=== PATIENT | female | born 1955 | race Caucasian/White ===

== ENCOUNTER → 2020-06-02 09:46 | Outpatient (BNVA) | payer MEDICARE, SELFPAY | PROVIDERS: PCP Internal Medicine; Visit Provider Hospitalist | DX: J44.1 Chronic obstructive pulmonary disease with (acute) exacerbation (principal) | CPT/HCPCS: 99212 ==

== ENCOUNTER 2020-06-29 10:23 | Outpatient (REF) | payer MEDICARE, SELFPAY ==
[2020-06-29 12:39] LABS: MANUAL DIFF FLAG NO
[2020-06-29 12:50] LABS: Basophils Percent Auto 0.3 % (0-2); Eosinophils Absolute Auto 0.2 X10*3/uL (0.0-0.4); Eosinophils Percent Auto 3.7 % (0-4); Hematocrit 36.5 % (37-47); Hemoglobin 11.1 g/dl (12.0-16.0); Imm Gran Abs Auto 0.01 X10*3/uL (0.00-0.03); Imm Gran Pct Auto 0.2 % (0.0-0.4); Lymphocytes Absolute Auto 2.3 X10*3/uL (1.2-4.9); Lymphocytes Percent Auto 38.4 % (20-40); Mean Corpuscular HGB Conc 30.4 g/dl (31.0-35.0); Mean Corpuscular Hemoglobin 26.6 pg (27.0-33.0); Mean Corpuscular Volume 87.5 fL (80-98); Mean Platelet Volume 10.3 fL (9.4-12.3); Monocytes Absolute Auto 0.5 X10*3/uL (0.1-1.2); Monocytes Percent Auto 7.6 % (2-11); Neutrophils Percent Auto 49.8 % (45-73); Platelet Count 318 X10*3/uL (160-400); Red Blood Count 4.17 X10*6/uL (4.20-5.50); Red Cell Distribution Width 13.9 % (11.0-16.0); White Blood Count 5.9 X10*3/uL (4.8-10.8)
[2020-06-29 13:14] LABS: SARS COV2 IgG Positive (Negative)
[2020-06-29 13:56] LABS: Erythrocyte Sedimentation Rate 29 MM/HR (0-20)
[2020-07-01 13:47] LABS: IgA 167 mg/dL (70-320); IgG 739 mg/dL (600-1540); IgM 61 mg/dL (50-300)
[2020-07-04 07:04] LABS: Immunoglobulin E 2884 kU/L (<OR=114)
== END 2020-06-29 10:24 | disposition home or self-care (01) ==
LOC: HO.LAB 10:23
PROVIDERS: PCP Internal Medicine; Visit Provider Hospitalist
DX: J41.8 Mixed simple and mucopurulent chronic bronchitis (principal); G47.33 Obstructive sleep apnea (adult) (pediatric); R91.1 Solitary pulmonary nodule; F17.210 Nicotine dependence, cigarettes, uncomplicated; Z20.828 Contact with and (suspected) exposure to other viral communicable diseases; Z99.89 Dependence on other enabling machines and devices
CPT/HCPCS: 36415; 82784; 82785; 85025; 85652; 86769; 99212

== ENCOUNTER → 2020-08-03 10:28 | Outpatient (BNVA) | payer MEDICARE, SELFPAY | PROVIDERS: PCP Internal Medicine; Visit Provider Hospitalist | DX: J41.8 Mixed simple and mucopurulent chronic bronchitis (principal); J44.1 Chronic obstructive pulmonary disease with (acute) exacerbation; G47.33 Obstructive sleep apnea (adult) (pediatric); Z99.89 Dependence on other enabling machines and devices | CPT/HCPCS: 96372; 99212 ==

== ENCOUNTER → 2020-10-26 09:59 | Outpatient (BNVA) | payer MEDICARE, SELFPAY | PROVIDERS: PCP Internal Medicine; Visit Provider Hospitalist | DX: J44.1 Chronic obstructive pulmonary disease with (acute) exacerbation (principal); J41.8 Mixed simple and mucopurulent chronic bronchitis | CPT/HCPCS: 96372; 99212; J2930 ==

== ENCOUNTER → 2021-07-09 08:56 | Outpatient (BNVA) | payer MEDICARE, SELFPAY | PROVIDERS: PCP Internal Medicine; Visit Provider Hospitalist | DX: J45.51 Severe persistent asthma with (acute) exacerbation (principal); J44.9 Chronic obstructive pulmonary disease, unspecified; F17.210 Nicotine dependence, cigarettes, uncomplicated; H40.9 Unspecified glaucoma | CPT/HCPCS: 96372; 99212; J2930 ==

== ENCOUNTER → 2021-10-03 09:38 | Outpatient (BNVA) | payer MEDICARE, SELFPAY | PROVIDERS: PCP Internal Medicine; Visit Provider Hospitalist | DX: J45.51 Severe persistent asthma with (acute) exacerbation (principal); J44.9 Chronic obstructive pulmonary disease, unspecified; F17.200 Nicotine dependence, unspecified, uncomplicated; H40.9 Unspecified glaucoma; Z79.899 Other long term (current) drug therapy | CPT/HCPCS: 96372; 99212; J2930 ==

== ENCOUNTER 2021-11-12 13:17 | Outpatient (REF) | payer MEDICARE, SELFPAY | END 2021-11-12 13:18 | disposition home or self-care (01) | LOC: HO.LAB 13:17 | PROVIDERS: Visit Provider Hospitalist | DX: Z13.89 Encounter for screening for other disorder (principal) ==

== ENCOUNTER 2021-11-14 09:27 | Outpatient (REF) | payer MEDICARE, SELFPAY ==
[2021-11-14 09:59] LABS: MANUAL DIFF FLAG NO
[2021-11-14 10:26] LABS: Basophils Percent Auto 0.4 % (0-2); Eosinophils Absolute Auto 0.2 X10*3/uL (0.0-0.4); Eosinophils Percent Auto 3.2 % (0-4); Hematocrit 35.4 % (37.0-47.0); Imm Gran Abs Auto 0.01 X10*3/uL (0.00-0.03); Imm Gran Pct Auto 0.2 % (0.0-0.4); Lymphocytes Absolute Auto 1.5 X10*3/uL (1.2-4.9); Lymphocytes Percent Auto 32.4 % (20-40); Mean Corpuscular HGB Conc 31.1 g/dl (31.0-35.0); Mean Corpuscular Hemoglobin 27.6 pg (27.0-33.0); Mean Corpuscular Volume 88.7 fL (80.0-98.0); Mean Platelet Volume 10.7 fL (9.4-12.3); Monocytes Absolute Auto 0.4 X10*3/uL (0.1-1.2); Neutrophils Absolute Auto 2.7 x10*3/uL (2.0-8.3); Neutrophils Percent Auto 55.8 % (45-73); Platelet Count 210 X10*3/uL (160-400); Red Blood Count 3.99 X10*6/uL (4.20-5.50); Red Cell Distribution Width 14.2 % (11.0-16.0); White Blood Count 4.8 X10*3/uL (4.8-10.8)
[2021-11-14 12:04] LABS: Erythrocyte Sedimentation Rate 15 MM/HR (0-20)
[2021-11-16 18:07] LABS: Immunoglobulin G Subclass 1 492 mg/dL (382-929); Immunoglobulin G Subclass 2 157 mg/dL (241-700); Immunoglobulin G Subclass 3 98 mg/dL (22-178); Immunoglobulin G Subclass 4 2.8 mg/dL (4-86); Immunoglobulin G Total 779 mg/dL (600-1540)
[2021-11-17 14:42] LABS: IgA 146 mg/dL (70-320); IgG 780 mg/dL (600-1540); IgM 69 mg/dL (50-300)
== END 2021-11-14 09:28 | disposition home or self-care (01) ==
LOC: HO.LAB 09:27
PROVIDERS: PCP Internal Medicine; Visit Provider Hospitalist
DX: J45.909 Unspecified asthma, uncomplicated (principal); Z91.09 Other allergy status, other than to drugs and biological substances
CPT/HCPCS: 36415; 82784; 82785; 85025; 85652; 86003

== ENCOUNTER → 2021-11-20 10:19 | Outpatient (BNVA) | payer MEDICARE, SELFPAY | PROVIDERS: PCP Internal Medicine; Visit Provider Hospitalist | DX: J45.51 Severe persistent asthma with (acute) exacerbation (principal); H40.9 Unspecified glaucoma; F17.210 Nicotine dependence, cigarettes, uncomplicated | CPT/HCPCS: 99212 ==

== ENCOUNTER → 2022-09-05 14:20 | Outpatient (BNVA) | payer MEDICARE, SELFPAY | PROVIDERS: PCP Internal Medicine; Visit Provider Hospitalist | DX: J45.50 Severe persistent asthma, uncomplicated (principal); J44.9 Chronic obstructive pulmonary disease, unspecified; R91.8 Other nonspecific abnormal finding of lung field; H40.9 Unspecified glaucoma; F17.210 Nicotine dependence, cigarettes, uncomplicated; Z79.899 Other long term (current) drug therapy | CPT/HCPCS: 99212 ==

== ENCOUNTER 2022-10-23 10:49 | Outpatient (REF) | payer MEDICARE, SELFPAY ==
--- NOTE | ~2022-10-23 | XR_ITS ---
EXAMINATION: XR CHEST CLINICAL INFORMATION: Chronic obstructive pulmonary disease COMPARISON: None available. TECHNIQUE: 2 views of the chest were obtained. FINDINGS: A left-sided single lead AICD/pacemaker is in place with the intact-appearing lead terminating in the expected location of the right ventricle. Upper limits of normal cardiac size versus mild cardiomegaly. Mediastinal silhouette is otherwise unremarkable. The lungs are mildly hyperinflated. No focal consolidation, changes of congestion, pleural effusions or pneumothorax are seen. Note is made of absence of lateral end of the right clavicle which could be postsurgical or posttraumatic, recommend clinical correlation. Left AC joint arthropathy changes are seen. Multilevel degenerative changes in the visualized spine. The visualized upper abdomen is unremarkable. XR/XR chest 2V IMPRESSION: Mildly hyperinflated lungs. No acute pulmonary process.
[2022-10-23 11:43] LABS: MANUAL DIFF FLAG NO
[2022-10-23 11:51] LABS: Venous Blood Gas Refer to POC result
[2022-10-23 11:52] LABS: VBG pH 7.35 (7.32-7.43)
[2022-10-23 11:53] LABS: VBG Base Excess 1.5 mmol/L; VBG HCO3 27 mmol/L (22-26); VBG pCO2 49 mmHg; VBG pO2 35 mmHg
[2022-10-23 12:23] LABS: Basophils Percent Auto 0.3 % (0-2); Eosinophils Absolute Auto 0.2 X10*3/uL (0.0-0.4); Hematocrit 42.9 % (37.0-47.0); Hemoglobin 13.9 g/dl (12.0-16.0); Imm Gran Abs Auto 0.05 X10*3/uL (0.00-0.03); Imm Gran Pct Auto 0.4 % (0.0-0.4); Lymphocytes Absolute Auto 3.5 X10*3/uL (1.2-4.9); Lymphocytes Percent Auto 31.1 % (20-40); Mean Corpuscular HGB Conc 32.4 g/dl (31.0-35.0); Mean Corpuscular Hemoglobin 30.6 pg (27.0-33.0); Mean Corpuscular Volume 94.5 fL (80.0-98.0); Mean Platelet Volume 10.7 fL (9.4-12.3); Monocytes Absolute Auto 0.8 X10*3/uL (0.1-1.2); Monocytes Percent Auto 6.7 % (2-11); Neutrophils Absolute Auto 6.7 x10*3/uL (2.0-8.3); Neutrophils Percent Auto 59.5 % (45-73); Platelet Count 221 X10*3/uL (160-400); Red Blood Count 4.54 X10*6/uL (4.20-5.50); Red Cell Distribution Width 13.4 % (11.0-16.0); White Blood Count 11.3 X10*3/uL (4.8-10.8)
[2022-10-23 12:40] LABS: Anion Gap 13 (12-20); Blood Urea Nitrogen 11 mg/dL (9-16); Calcium 9.4 mg/dL (8.4-10.2); Carbon Dioxide 28 mmol/L (22-29); Chloride 105 mmol/L (96-108); Estimated Glomerular Filt Rate 55; Glucose Random 109 mg/dL (60-115); Potassium 5.1 mmol/L (3.3-5.1); Sodium 141 mmol/L (135-145)
[2022-10-23 13:05] LABS: Erythrocyte Sedimentation Rate 5 MM/HR (0-20)
[2022-10-25 18:54] LABS: Immunoglobulin E 2526 kU/L (<OR=114)
== END 2022-10-23 10:50 | disposition home or self-care (01) ==
LOC: HO.LAB 10:49
PROVIDERS: PCP Internal Medicine; Visit Provider Hospitalist
DX: J44.1 Chronic obstructive pulmonary disease with (acute) exacerbation (principal); H40.9 Unspecified glaucoma; F17.200 Nicotine dependence, unspecified, uncomplicated
CPT/HCPCS: 36415; 71046; 80048; 82785; 82803; 85025; 85652; 94640; 96372; 99212; J2930

== ENCOUNTER 2023-02-11 10:00 | Outpatient (AMB) | payer MEDICARE, SELFPAY ==
--- NOTE | 2023-02-11 10:04 | A.OFFVIS_ITS ---
Intake Vital Signs 02/11/23 10:05 Height 5 ft 1 in Weight 200 lb BMI 37.8 BP 110/70 Blood Pressure Location Lt brachial Position Standing Pulse 87 Pulse Source Pulse Oximeter Pulse Oximetry (%) 97 Oxygen Delivery Method Room Air Intake Visit Reasons: asthma Intake Note: pt is here for follow up and states she is feeling good. Allergies ciprofloxacin Allergy (Severe, Verified 02/11/23 10:09) rash HPI HPI Comments History of Present Illness Details The patient is a 68-year-old woman known severe asthma, tobacco dependency and pulmonary nodules. She continues to smoke cigarettes. She is not ready to quit. She continues on the Symbicort and Spiriva. Recently she was admitted to [facility] with the kidney stones and also a complicated urinary tract infection. She has been taking 2 antibiotics. She has also been taking analgesics for the significant pain. She did have a stent placed. Now she needs additional therapies for larger stone removal. Patient needs pulmonary clearance. Overall her respiratory status is improved. She has been using her inhalers regularly. She has not had any pulmonary function studies recently. At this point due to her pain and discomfort would be a good time to do them. She is walking without any significant shortness of breath which is reassuring. We did review her chest x-ray from [facility] done 06/03/2019 demonstrating a question opacity in the right imelda thorax. She did have a CT scan of the chest back in October 2018 demonstrating stable pulmonary nodules.Apparently after had seen and she developed worsening neck discomfort and she called 911. She was found to have an at heart attack, she was admitted to [facility]. She underwent a PCI with stent placed to the LAD. However, after that she had worsening respiratory symptoms. Significant wheezing. Not in any improvement with her respiratory medicines at home. She went to cardiac rehab this morning even though she was short of breath. She was told that it may be from the metoprolol. 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 10/03/2021 the patient is here for a pulmonary follow-up visit. Her respi ratory status has significantly gotten worse. During the last visit she explained that she was diagnosed with glaucoma and went to take her off her anticholinergic in respiratory therapy. However, she did get a clarification that was not glaucoma and was cataracts. Therefore she can go back on anticholinergic therapy. She does have increased wheezing and she feels that not being on that medication made her symptoms worse. The patient was denied on Dupixent and therefore will continue her on prednisone for now. The patient does have significant wheezing today and she will receive a dose of Solu-Medrol. She denies any sick contacts. In view of her asthma phenotype will go ahead and do blood work to assess her eosinophils and her IgE levels as well as her allergies. I am hopeful that she can start biologic therapies in order to decrease her steroid needs. 11/20/2021 the patient is here for pulmonary follow-up visit. She is doing a lot better now on Trelegy. The inhaler therapy has been affecting beneficial. She has not required prednisone since the last time. She continues to have shortness of breath with activity. Moderate severity. Does get very winded at times. She also has significant allergies. She takes Benadryl every night. We did do blood work including allergy testing and she has significant allergies to molds and a significantly elevated IgE level will refer to the ostium. The patient does have an asthma phenotype and she will benefit from biologic therapy based on her frequent does of prednisone on maximum therapy. She will be a good candidate for Xolair. However, the patient is resistant on starting a biologic therapies at this time. She is going to continue on current therapy. We also talked about her smoking. She understands smoking slowly making it worse. She is not interested in using any alternative medications at this time. But she will consider cutting down at this time. 09/05/2022 the patient is here for a pulmonary follow-up visit. She has had a hard time with her breathing. She can no longer use the Trelegy because of the cost. Her primary care doctor did prescribe Symbicort. Although still very expensive for her. She has her nebulizer therapy both the DuoNeb and the budesonide. If she does use the 4 times a day at least a DuoNeb in twice a day the budesonide she does need to take any other inhalers except for rescue inhaler. the patient had a hard time with her breathing. She had called the office because she thought she would need prednisone. We did send prednisone she did initially okay but then she got worse again. She does she needed Solu- Medrol. However, she did in 1 go to the ER. We did not have any availability so she could not get shot in the office. She has been off the azithromycin. She takes that 3 times a week. The major issues she still smoking. Change oil smoking she is not ready to quit. Although she knows that she continues smoking she is going to continue getting worse. I am going to go ahead and send the Nicotrol inhaler to the pharmacy. She is going to start that up to see if this could help her decrease and hopefully stop her smoking habit. We did talk about the lung cancer screening program. The patient is not interested at this time. We also talked about biologic therapy. The patient has not been on Xolair. She did not want start. 10/23/2022 the patient is here for sick visit. She has had a hard time breathing off for couple months. Every time she goes on prednisone she does feel better but then when she weans off she always gets worse again. Unfortunately she continues to smoke cigarettes. Also fortunately she is reluctant to go to the ER at any point. She continues to work regularly. She had just completed a course of prednisone. Currently she is having labored breathing with significant audible wheezing. She did a treatment this morning. Though with her significant chest tightness and wheezing I did give her 2 DuoNeb treatments. Also Solu-Medrol 125 mg x 1. The patient is agreeable to staying on a small dose of prednisone at this time based on the fact that she has symptoms when she comes off. She also understands that she needs to quit smoking. I will have her get blood work including a venous gas and also a chest x-ray today prior to discharge. She is going to continue with current respira tory regimen and will be working on cutting down on the smoking. 02/11/2023 the patient is here for a pulmonary follow-up visit. The patient overall showing a little better. She continues to need a prednisone regularly. Although she is not taking it daily only as needed. Explained to her with her ongoing symptoms she is better off taking it once a day at least and then increasing it as needed. The patient does continue to smoke cigarettes. She has not ready to quit right now although she knows that is hurting her. She is looking for a job. She states that if she does get her job then she will work on quitting smoking. If she does decide to quit smoking she can go ahead and start Chantix. We did talk about the risks and side effects of the medication. She is aware of the depression and she would have to engage with family members to make sure that there where so they can monitor her closely. I do believe Chantix would be a good option for the patient. She continues use her respiratory therapy. She responded well to the azithromycin. She did have a chest x-ray back in September demonstrating no acute disease she has hyperinflation of the lungs. I did again recommend the lung cancer screening program but the patient rather not undergo any testing specially since she is not going to have anything done about it. [facility] Medical History (Updated 10/03/21 @ 09:58 by Willian Stern MD) Asthma Asthma Asthma-COPD overlap syndrome COPD (chronic obstructive pulmonary disease) COPD (chronic obstructive pulmonary disease) Glaucoma Mixed simple and mucopurulent chronic bronchitis BLAKE on CPAP Tobacco dependence Family History (Updated 08/03/20 @ 23:54 by Willian Stern MD) Other Asthma Social History Patient Tobacco Use Status: Current everyday Tobacco user Tobacco use type: Cigarette Cigarette Packs Per Day: 1 Cigarettes Per Day: 3 Years Smoked: 50 years Review of Systems Const Denies night sweats ENT Denies change in voice, Denies lip swelling, Denies mouth pain, Reports nasal congestion, Reports nasal discharge and Denies tongue swelling Card Denies chest pain and Reports dyspnea on exertion Resp Reports chest congestion, Reports cough, Reports dyspnea on exertion and Reports wheezing GI Denies abdominal pain Musc Denies no additional complaints Neuro Denies Neuro-related abnormal movements Psych Denies no additional complaints Good/Lymph Denies easy bleeding and Denies lymphadenopathy Aller/Immun Denies lip swelling, Denies tongue swelling and Reports wheezing Physical Exam Vital Signs: Last Vital Signs Pulse 87 02/11/23 10:05 BP 110/70 02/11/23 10:05 Pulse Ox 97 02/11/23 10:05 Oxygen Delivery Method Room Air 02/11/23 10:05 BMI result Body Mass Index 37.8 Const General: alert and acute distress mild HEENT General nose exam: Abnormal external nose present and Nasal discharge present Eyes Pupils: Equal, round and reactive pupils present Neck Neck: Yes normal visual inspection, Yes full ROM and Yes no lymphadenopathy Chest Chest palpation & inspection: normal inspection of the chest Resp Effort & Inspection: Actively coughing and prolonged expiratory phase Auscultation: rhonchi, wheezes scattered wheezes and diminished lung sounds Cardio Rate: regular rate Rhythm: regular rhythm Heart sounds: S1 normal heart sound present and S2 normal heart sound present GI Palpation (GI): Soft to palpation and nontender Auscultation: normal bowel sounds General: Yes no CVA tenderness Back/Spine/Pelvis Back: no CVA tenderness Skin General skin exam: rashes and/or lesions noted Neuro Cranial nerves: Yes Equal, round and reactive pupils present Assessment & Plan Assessment & Plan (1) COPD (chronic obstructive pulmonary disease): Code(s): J44.9 - Chronic obstructive pulmonary disease, unspecified Qualifiers: COPD type: COPD with acute exacerbation Qualified Code(s): J44.1 - Chronic obstructive pulmonary disease with (acute) exacerbation (2) Asthma-COPD overlap syndrome: Code(s): J44.9 - Chronic obstructive pulmonary disease, unspecified (3) Tobacco dependence: Code(s): F17.200 - Nicotine dependence, unspecified, uncomplicated (4) Glaucoma: Code(s): H40.9 - Unspecified glaucoma Plan continue Azithromycin 500mg MWF prednisone taper, then stay on 10mg daily continue budesonide twice a day Duoneb QID (monitor for mental status changes) Continue oxygen supplementation with activity and sleep consider Chantix, rx givent on paper Consider LDCT screening reflux diet/PPI Follow-up in 2-3 months Medications: New varenicline (Chantix Starting Month Box) PO PER PKG DIR 42 ea 0RF prednisone 30 mg (3 x 10 mg) PO DAILY 30 days 90 tabs 1RF varenicline (Chantix Starting Month Box) PO PER PKG DIR 42 ea 0RF Coding Level of Care Code Est Pt Level 4 (00713) Diagnoses COPD (chronic obstructive pulmonary disease) J44.1 COPD type: COPD with acute exacerbation Asthma-COPD overlap syndrome J44.9 Tobacco dependence F17.200 Glaucoma H40.9 Time Spent (min) 19
[2023-02-11 10:05] VITALS: BP 110/70; PULSE 87; O2SAT 97; BMI 37.8
== END 2023-02-11 10:39 | disposition home or self-care (01) ==
PROVIDERS: PCP Internal Medicine; Visit Provider Hospitalist
DX: J44.1 Chronic obstructive pulmonary disease with (acute) exacerbation (principal); J44.9 Chronic obstructive pulmonary disease, unspecified; F17.200 Nicotine dependence, unspecified, uncomplicated; H40.9 Unspecified glaucoma
CPT/HCPCS: 99214

== ENCOUNTER → 2023-02-11 10:00 | Outpatient (BNVA) | payer MEDICARE, SELFPAY | PROVIDERS: PCP Internal Medicine; Visit Provider Hospitalist | DX: J44.1 Chronic obstructive pulmonary disease with (acute) exacerbation (principal); H40.9 Unspecified glaucoma; F17.210 Nicotine dependence, cigarettes, uncomplicated | CPT/HCPCS: 99212 ==

== ENCOUNTER 2023-09-12 09:19 | Outpatient (AMB) | payer MEDICARE, SELFPAY ==
[2023-09-12 09:25] VITALS: BP 120/70; PULSE 109; O2SAT 96; BMI 40.2
--- NOTE | 2023-09-12 09:25 | A.OFFVIS_ITS ---
Intake Vital Signs 09/12/23 09:25 Height 5 ft 1 in Weight 212 lb 11.937 oz BMI 40.2 BP 120/70 Blood Pressure Location Lt brachial Position Sitting Pulse 109 H Pulse Source Pulse Oximeter Pulse Oximetry (%) 96 Oxygen Delivery Method Room Air Intake Visit Reasons: Asthma Intake Note: pt is here for follow up and states she is doing okay at her baseline. Mortar Carrier Required: No Allergies ciprofloxacin Allergy (Severe, Verified 09/12/23 09:28) rash HPI HPI Comments History of Present Illness Details The patient is a 68-year-old woman known severe asthma, tobacco dependency and pulmonary nodules. She continues to smoke cigarettes. She is not ready to quit. She continues on the Symbicort and Spiriva. Recently she was admitted to [facility] with the kidney stones and also a complicated urinary tract infection. She has been taking 2 antibiotics. She has also been taking analgesics for the significant pain. She did have a stent placed. Now she needs additional therapies for larger stone removal. Patient needs pulmonary clearance. Overall her respiratory status is improved. She has been using her inhalers regularly. She has not had any pulmonary function studies recently. At this point due to her pain and discomfort would be a good time to do them. She is walking without any significant shortness of breath which is reassuring. We did review her chest x-ray from [facility] done 06/03/2019 demonstrating a question opacity in the right imelda thorax. She did have a CT scan of the chest back in October 2018 demonstrating stable pulmonary nodules.Apparently after had seen and she developed worsening neck discomfort and she called 911. She was found to have an at heart attack, she was admitted to [facility]. She underwent a PCI with stent placed to the LAD. However, after that she had worsening respiratory symptoms. Significant wheezing. Not in any improvement with her respiratory medicines at home. She went to cardiac rehab this morning even though she was short of breath. She was told that it may be from the metoprolol. She is going to call her extension course coordinator to see if we can come off it or decrease the dose. 10/03/2021 the patient is here for a pulmonary follow-up visit. Her respiratory status has significantly gotten worse. During the last visit she explained that she was diagnosed with glaucoma and went to take her off her anticholinergic in respiratory therapy. However, she did get a clarification that was not glaucoma and was cataracts. Therefore she can go back on anticholinergic therapy. She does have increased wheezing and she feels that not being on that medication made her symptoms worse. The patient was denied on Dupixent and therefore will continue her on prednisone for now. The patient does have significant wheezing today and she will receive a dose of Solu-Medrol. She denies any sick contacts. In view of her asthma phenotype will go ahead and do blood work to assess her eosinophils and her IgE levels as well as her allergies. I am hopeful that she can start biologic therapies in order to decrease her steroid needs. 11/20/2021 the patient is here for pulmonary follow-up visit. She is doing a lot better now on Trelegy. The inhaler therapy has been affecting beneficial. She has not required prednisone since the last time. She continues to have shortness of breath with activity. Moderate severity. Does get very winded at times. She also has significant allergies. She takes Benadryl every night. We did do blood work including allergy testing and she has significant allergies to molds and a significantly elevated IgE level will refer to the ostium. The patient does have an asthma phenotype and she will benefit from biologic therapy based on her frequent does of prednisone on maximum therapy. She will be a good candidate for Xolair. However, the patient is resistant on starting a biologic therapies at this time. She is going to continue on current therapy. We also talked about her smoking. She understands smoking slowly making it worse. She is not interested in using any alternative medications at this time. But she will consider cutting down at this time. 09/05/2022 the patient is here for a pulmonary follow-up visit. She has had a hard time with her breathing. She can no longer use the Trelegy because of the cost. Her primary care doctor did prescribe Symbicort. Although still very expensive for her. She has her nebulizer therapy both the DuoNeb and the budesonide. If she does use the 4 times a day at least a DuoNeb in twice a day the budesonide she does need to take any other inhalers except for rescue inhaler. the patient had a hard time with her breathing. She had called the office because she thought she would need prednisone. We did send prednisone she did initially okay but then she got worse again. She does she needed Solu- Medrol. However, she did in 1 go to the ER. We did not have any availability so she could not get shot in the office. She has been off the azithromycin. She takes that 3 times a week. The major issues she still smoking. Change oil smoking she is not ready to quit. Although she knows that she continues smoking she is going to continue getting worse. I am going to go ahead and send the Nicotrol inhaler to the pharmacy. She is going to start that up to see if this could help her decrease and hopefully stop her smoking habit. We did talk about the lung cancer screening program. The patient is not interested at this time. We also talked about biologic therapy. The patient has not been on Xolair. She did not want start. 10/23/2022 the patient is here for sick visit. She has had a hard time breathing off for couple months. Every time she goes on prednisone she does feel better but then when she weans off she always gets worse again. Unfortunately she continues to smoke cigarettes. Also fortunately she is reluctant to go to the ER at any point. She continues to work regularly. She had just completed a course of prednisone. Currently she is having labored breathing with significant audible wheezing. She did a treatment this morning. Though with her significant chest tightness and wheezing I did give her 2 DuoNeb treatments. Also Solu-Medrol 125 mg x 1. The patient is agreeable to staying on a small dose of prednisone at this time based on the fact that she has symptoms when she comes off. She also understands that she needs to quit smoking. I will have her get blood work including a venous gas and also a chest x-ray today prior to discharge. She is going to continue with current respiratory regimen and will be working on cutting down on the smoking. 02/11/2023 the patient is here for a pulmonary follow-up visit. The patient overall showing a little better. She continues to need a prednisone regularly. Although she is not taking it daily only as needed. Explained to her with her ongoing symptoms she is better off taking it once a day at least and then increasing it as needed. The patient does continue to smoke cigarettes. She has not ready to quit right now although she knows that is hurting her. She is looking for a job. She states that if she does get her job then she will work on quitting smoking. If she does decide to quit smoking she can go ahead and start Chantix. We did talk about the risks and side effects of the medication. She is aware of the depression and she would have to engage with family members to make sure that there where so they can monitor her closely. I do believe Chantix would be a good option for the patient. She continues use her respiratory therapy. She responded well to the azithromycin. She did have a chest x-ray back in September demonstrating no acute disease she has hyperinflation of the lungs. I did again recommend the lung cancer screening program but the patient rather not undergo any testing specially since she is not going to have anything done about it. 09/12/2023 the patient is here for sick visit. She has had worsening respiratory symptoms. Significant wheezing and chest congestion. Moderate to severe. Her respiratory therapy helps just for a short period of time. She did have some prednisone at home she did take it. Although she still having hard time. The patient did not want to go to the ER. She has a hard time even speaking in full sentences. The patient has been using her oxygen with good effect. We did document significant wheezing and prolonged expiratory phase. She did receive Solu-Medrol and will continue on the prednisone taper. Will go ahead and treat her with Augmentin for lower respiratory infection. If the patient is not responding she knows to come back for chest x-ray. Otherwise she is going to continue with aggressive respiratory therapy. If the patient is no better she will call the office for an earlier assessment. [facility] Medical History (Updated 10/03/21 @ 09:58 by Willian Stern MD) Asthma Glaucoma Tobacco dependence Asthma Asthma-COPD overlap syndrome BLAKE on CPAP COPD (chronic obstructive pulmonary disease) COPD (chronic obstructive pulmonary disease) Mixed simple and mucopurulent chronic bronchitis Family History (Updated 08/03/20 @ 23:54 by Willian Stern MD) Other Asthma Social History Patient Tobacco Use Status: Current everyday Tobacco user Tobacco use type: Cigarette Cigarette Packs Per Day: 1 Cigarettes Per Day: 3 Years Smoked: 50 years Review of Systems Const Denies night sweats ENT Denies change in voice, Denies lip swelling, Denies mouth pain, Reports nasal congestion, Reports nasal discharge and Denies tongue swelling Card Denies chest pain and Reports dyspnea on exertion Resp Reports chest congestion, Reports cough, Reports dyspnea on exertion and Reports wheezing GI Denies abdominal pain Musc Denies no additional complaints Neuro Denies Neuro-related abnormal movements Psych Denies no additional complaints Good/Lymph Denies easy bleeding and Denies lymphadenopathy Aller/Immun Denies lip swelling, Denies tongue swelling and Reports wheezing Physical Exam Vital Signs: Last Vital Signs Pulse 109 H 09/12/23 09:25 BP 120/70 09/12/23 09:25 Pulse Ox 96 09/12/23 09:25 Oxygen Delivery Method Room Air 09/12/23 09:25 BMI result Body Mass Index 40.2 Const General: alert and acute distress mild HEENT General nose exam: Abnormal external nose present and Nasal discharge present Eyes Pupils: Equal, round and reactive pupils present Neck Neck: Yes normal visual inspection, Yes full ROM and Yes no lymphadenopathy Chest Chest palpation & inspection: normal inspection of the chest Resp Effort & Inspection: Actively coughing and prolonged expiratory phase Auscultation: rhonchi, wheezes scattered wheezes and diminished lung sounds Cardio Rate: regular rate Rhythm: regular rhythm Heart sounds: S1 normal heart sound present and S2 normal heart sound present GI Palpation (GI): Soft to palpation and nontender Auscultation: normal bowel sounds General: Yes no CVA tenderness Back/Spine/Pelvis Back: no CVA tenderness Skin General skin exam: rashes and/or lesions noted Neuro Cranial nerves: Yes Equal, round and reactive pupils present Office Meds methylprednisolone sod suc(PF) 125 mg/2 mL solution for injection Performing Provider: Willian Stern MD Performing Location: [facility] Pulmonology [facility] Administered by: Arcelia Tubbs LPN on 09/12/23 10:00 Dose Route Admin Location Dispensed Lot Number Expiration Date NDC Accounts Manager 125 mg IM left buttock 2 mL [id number] 07/27/25 9974-2917-08 [employer] Assessment & Plan Assessment & Plan (1) COPD (chronic obstructive pulmonary disease): Code(s): J44.9 - Chronic obstructive pulmonary disease, unspecified Qualifiers: COPD type: COPD with acute exacerbation Qualified Code(s): J44.1 - Chronic obstructive pulmonary disease with (acute) exacerbation (2) Asthma-COPD overlap syndrome: Code(s): J44.9 - Chronic obstructive pulmonary disease, unspecified (3) Tobacco dependence: Code(s): F17.200 - Nicotine dependence, unspecified, uncomplicated (4) Glaucoma: Code(s): H40.9 - Unspecified glaucoma Plan Solumedrol today Prednisone taper start Augmentin continue Azithromycin 500mg MWF prednisone taper, then stay on 10mg daily continue budesonide twice a day Duoneb QID (monitor for mental status changes) Continue oxygen supplementation with activity and sleep consider Chantix, rx givent on paper Consider LDCT screening reflux diet/PPI Follow-up in 2-3 months Orders: Orders AMB Methylprednisolone Injection 09/12/23 J44.9 - Chronic obstructive pulmonary disease, unspecified Medications: New amoxicillin-pot clavulanate 875-125 mg 1 tab PO BID 10 days 20 tabs 0RF Changed From albuterol sulfate 90 mcg/actuation 2 puffs PO Q6H PRN 34 grams 2RF for wheezing To albuterol sulfate 90 mcg/actuation 2 puffs PO Q6H 90 days PRN 34 grams 3RF for wheezing From fluticasone propionate 50 mcg/actuation (Allergy Relief (fluticasone)) administer into each nostril 1 spray intranasal DAILY To fluticasone propionate 50 mcg/actuation (Allergy Relief (fluticasone)) administer into each nostril 1 spray intranasal DAILY 90 days 3 ea 3RF Refilled azithromycin Friday, Friday, Friday 500 mg PO 3XW 90 days 39 tabs 3RF J41.8 - Mixed simple and mucopurulent chronic bronchitis prednisone 30 mg (3 x 10 mg) PO DAILY 30 days 90 tabs 3RF ipratropium-albuterol 0.5 mg-3 mg(2.5 mg base)/3 mL 3 mL inhalation QID 1,260 mL 3RF J44.9 - Chronic obstructive pulmonary disease, unspecified Coding Level of Care Code Est Pt Level 4 (97855) Diagnoses Chronic obstructive pulmonary disease with acute exacerbation J44.1 COPD type: COPD with acute exacerbation Asthma-COPD overlap syndrome J44.9 Tobacco dependence F17.200 Glaucoma H40.9 Time Spent (min) 18
== END 2023-09-12 09:56 | disposition home or self-care (01) ==
PROVIDERS: PCP Internal Medicine; Visit Provider Hospitalist
DX: J44.1 Chronic obstructive pulmonary disease with (acute) exacerbation (principal); J44.9 Chronic obstructive pulmonary disease, unspecified; F17.200 Nicotine dependence, unspecified, uncomplicated; H40.9 Unspecified glaucoma
CPT/HCPCS: 99214

== ENCOUNTER → 2023-09-12 09:19 | Outpatient (BNVA) | payer MEDICARE, SELFPAY | PROVIDERS: PCP Internal Medicine; Visit Provider Hospitalist | DX: J44.1 Chronic obstructive pulmonary disease with (acute) exacerbation (principal); H40.9 Unspecified glaucoma; F17.210 Nicotine dependence, cigarettes, uncomplicated | CPT/HCPCS: 96372; 99212; J2930 ==

== ENCOUNTER 2024-01-01 12:52 | Inpatient (IN) | payer MEDICARE, SELFPAY ==
[2024-01-01] VITALS (14 sets, daily range): BP systolic 105–142; BP diastolic 60–82; PULSE 95–106; RESP 14–35; TEMP 36.9–37.6; O2SAT 91–99; BMI 41.7; BMI 41.0
--- NOTE | ~2024-01-01 | XR_ITS ---
EXAMINATION: XR CHEST CLINICAL INFORMATION: Dyspnea COMPARISON: Chest 10/23/2022 TECHNIQUE: AP upright portable view of the chest was obtained. FINDINGS: A left-sided single-lead AICD/pacemaker is in place with the intact-appearing lead terminating in the expected location of the right ventricle. Heart size remains upper limits of normal to mildly enlarged. The lungs are mildly hyperinflated. There is slight patchy opacity at the left lung base consistent with atelectasis and/or pneumonia. Coarsening of the interstitial markings is again noted. No pleural effusion or pneumothorax. Again noted is absence of the lateral aspect of the right clavicle which is could be postsurgical or posttraumatic. There is mild degenerative change of the left AC joint. The upper abdomen is unremarkable. XR/XR chest 1V IMPRESSION: 1. Left lower lobe atelectasis and/or pneumonia. 2. No pleural effusion or pneumothorax. 3. Mild cardiomegaly.
--- NOTE | 2024-01-01 13:18 | ECG_ITS ---
Test Reason : DYSPNEA Blood Pressure : / mmHG Vent. Rate : 108 BPM Atrial Rate : 108 BPM P-R Int : 154 ms QRS Dur : 104 ms QT Int : 330 ms P-R-T Axes : 036 206 034 degrees QTc Int : 442 ms Sinus tachycardia with occasional Premature ventricular complexes / Premature atrial complexes Possible Left atrial enlargement Right superior axis deviation Septal infarct , age undetermined Abnormal ECG No previous ECGs available Referred By: Keli Wilks Electronically Signed By:JOSE MARIE MD
--- NOTE | 2024-01-01 13:29 | ED.GENADULT ---
HPI - General Adult General Chief complaint: Dyspnea Stated complaint: diff breathing Time Seen by Provider: 01/01/24 13:24 Source: patient Mode of arrival: ambulatory Limitations: no limitations History of Present Illness ED Provider: Leonie Andre PA-C HPI narrative: This is a 68 yo female pmh asthma, COPD, tobacco dependence, BLAKE, glaucoma, mixed simple and mucopurulent chronic bronchitis presenting with progressively worsening SOB, wheezing, and cough x 1-2 weeks, worsening the last 3 nights. States she has been using her O2, nebulizer, and inhalers consistently been they have not been helping. This morning she was unable to breath so she called her daughter who is here with her today. Patient reports the SOB was mild at first and she thought it may just be from the pollen, however it has gotten worse the past 3 nights as well as fever, chills, headache, dizziness, and lightheadedness. Reports some phlegm that she coughed up that she thinks was mainly clear in color. She also reports some left sided chest pain and back pain which she thinks may be due to her excessive coughing. Also reports she had leftover Amoxicillin which she took this morning and yesterday. 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 Patient current daily smoker. Denies nausea, vomiting, abdominal pain, night sweats, change in weight or appetite, palpitations. Related Data Home Medications ?Medication ?Instructions ?Recorded ?Confirmed aspirin 81 mg tablet,delayed 81 mg PO DAILY 06/02/20 10/03/21 release furosemide 20 mg tablet 20 mg PO DAILY 06/02/20 10/03/21 lisinopril 5 mg tablet 5 mg PO DAILY 06/02/20 10/03/21 loratadine 10 mg tablet 10 mg PO DAILY 06/02/20 10/03/21 metoprolol succinate 50 mg 50 mg PO DAILY 06/02/20 10/03/21 tablet,extended release 24 hr sertraline 100 mg tablet 100 mg PO DAILY 06/02/20 10/03/21 pioglitazone 30 mg tablet 30 mg PO DAILY 11/20/21 atorvastatin 80 mg tablet 80 mg PO DAILY 10/23/22 gabapentin 300 mg capsule 300 mg PO TID 10/23/22 montelukast 10 mg tablet 10 mg PO DAILY 10/23/22 nebulizers 10/23/22 Previous Rx's ?Medication ?Instructions ?Recorded budesonide 0.5 mg/2 mL suspension 0.5 mg (2 mL) inhalation BID 90 09/05/22 for nebulization days #360 mL albuterol sulfate 90 mcg/actuation 2 puff PO Q6H PRN for wheezing 09/12/23 aerosol inhaler days #34 grams amoxicillin 875 mg-potassium 1 tab PO BID 10 days #20 tabs 09/12/23 clavulanate 125 mg tablet azithromycin 500 mg tablet 500 mg PO 3XW 90 days #39 tabs 09/12/23 ipratropium 0.5 mg-albuterol 3 mg 3 ml inhalation QID #1,260 mL 09/12/23 (2.5 mg base)/3 mL nebulization soln prednisone 10 mg tablet 30 mg (3 x 10 mg) PO DAILY 30 days 09/12/23 #90 tabs omeprazole 40 mg capsule,delayed 40 mg PO DAILY #100 caps 10/13/23 release fluticasone propionate 50 1 spray intranasal DAILY 90 days 11/05/23 mcg/actuation nasal #3 ea spray,suspension (Allergy Relief (fluticasone)) Allergies Allergy/AdvReac Type Severity Reaction Status Date / Time ciprofloxacin Allergy Severe rash Verified 01/01/24 13:23 Review of Systems Review of Systems: Yes all other systems are reviewed and are negative PMFSH Past Medical History Attestation statement: The following information was validated with the patient. Source: old records reviewed and nursing notes reviewed Medical History Asthma Glaucoma Tobacco dependence Asthma Asthma-COPD overlap syndrome BLAKE on CPAP COPD (chronic obstructive pulmonary disease) COPD (chronic obstructive pulmonary disease) Mixed simple and mucopurulent chronic bronchitis Family History Family History Other Asthma Social History Social History Patient Tobacco Use Status: Current everyday Tobacco user Tobacco use type: Cigarette Cigarette Packs Per Day: 1 Cigarettes Per Day: 3 Years Smoked: 50 years Advance Directives: Yes Advance Directives Information Provided: Yes Advance Directives on File: No Do you have a plan to hurt others: No Plan Physical Exam ED Vital Signs: Vital Signs - 24 hr 01/01/24 13:20 01/01/24 13:35 01/01/24 13:43 Temperature 99.6 F Pulse Rate 101 H 95 104 H Respiratory Rate 19 30 H 25 H Blood Pressure 142/68 H Pulse Oximetry 99 Oxygen Delivery Method 01/01/24 14:09 01/01/24 14:32 01/01/24 14:35 Temperature Pulse Rate 103 H Respiratory Rate 30 H 35 H Blood Pressure 105/60 126/71 Pulse Oximetry 91 L Oxygen Delivery Method Room Air 01/01/24 14:38 Temperature Pulse Rate 103 H Respiratory Rate 35 H Blood Pressure Pulse Oximetry Oxygen Delivery Method BMI result Body Mass Index 41.7 vss. Appearance: Alert.? Oriented X3.? No acute distress.? Head: Normocephalic, atraumatic, no step-offs or deformities Eyes: Pupils equal, round and reactive to light.? Neck: Normal inspection.? Neck supple.? CVS: Normal heart rate and rhythm.? Pulses normal.? Respiratory: +Wheezing auscultated throughout lung carcamo bilaterally w/ crackles. Patient initially tripoding but improvement with nebulizer treatment. Abdomen: Soft and nontender.? Skin: Skin warm and dry.? Normal skin color.? Normal skin turgor.? Extremities: 2+ pitting edema b/l LE.? No calf ttp. 5/5 strength to bilateral upper and lower extremities Neuro: Oriented X 3.? No motor deficit.? No sensory deficit. CN 2-12 intact Course Reevaluation(s) Reevaluation #1: Patient is very tachypneic respiratory rate around 30, she saturating 90% but feels tired. Will give IV Lasix and put her on CPAP for suspected CHF. Time: 14:20 Reevaluation #2: CBC unremarkable. Chemistry with elevated carbon dioxide likely secondary to chronic lung disease. Troponin 32.6 likely demand ischemia from shortness of breath/labored breathing. BNP 1129. No history of this in the past, IV Lasix ordered, she does appear to be clinically in fluid overload. Will also place her on CPAP as she does appear to have labored breathing and appears fatigued. Time: 14:21 Reevaluation #3: Elevated lactic acid 2.3 likely secondary to multiple albuterol treatments and steroids. Unlikely from severe sepsis or sepsis. Time: 14:50 Additional Reevaluation(s): Patient taken off of CPAP doing much better. Plan is hospital admission for chronic lung disease as well as for asthma and CHF. Medications Administered Discontinued Medications Generic Name Dose Route Start Last Admin Trade Name Freq PRN Reason Stop Dose Admin Albuterol Sulfate 7.5 mg/ 0 mg 01/01/24 13:28 01/01/24 13:34 Albuterol/Ipratropium 3 ml INHALE 01/01/24 13:29 10 each ONCE ONE Administration Albuterol Sulfate 5 mg/ 0 mg 01/01/24 13:36 01/01/24 13:42 Albuterol/Ipratropium 3 ml INHALE 01/01/24 13:37 7.5 each ONCE ONE Administration Albuterol Sulfate 5 mg/ 0 mg 01/01/24 14:31 01/01/24 14:38 Albuterol/Ipratropium 3 ml INHALE 01/01/24 14:32 7.5 each ONCE ONE Administration Furosemide 60 mg 01/01/24 14:15 01/01/24 14:35 Furosemide 100 Mg/10 Ml Vial IVPUSH 01/01/24 14:16 60 mg ONCE ONE Administration Protocol Ceftriaxone Sodium 1 gm/ 50 mls @ 100 mls/hr 01/01/24 13:59 01/01/24 14:40 Sodium Chloride IV 01/01/24 14:28 100 mls/hr ONCE ONE Administration Methylprednisolone Sodium Succinate 125 mg 01/01/24 13:50 01/01/24 14:32 Methylprednisolone Sod Succ 125 Mg/2 Ml Vial IVPUSH 01/01/24 13:51 125 mg ONCE ONE Administration Medical Decision Making Medical Decision Making [facility] Narrative: 1341 This is a 68 yo female pmh asthma, COPD, presenting with progressively worsening SOB, wheezing, and cough x 1-2 weeks, worsening the last 3 nights. States she has been using her O2, nebulizer, and inhalers consistently been they have not been helping. Also reports fever, chills, headache, dizziness x 3 days. PE: Respiratory: +Wheezing auscultated throughout lung carcamo bilaterally w/ crackles . Patient initially tripoding but improvement with nebulizer treatment. Differential: Asthma or chronic lung disease vs pneumonia vs other viral infection vs allergic rhinitis vs chf. Unlikely acute threat to airway, anaphylaxis, foreign body aspiration, pe, acs, dissection. Unlikely dvt or arterial occlusion Differential Diagnosis Differential Diagnoses: The differential diagnosis associated with the presentation includes Differential: Asthma or chronic lung disease vs pneumonia vs other viral infection vs allergic rhinitis vs chf. Unlikely acute threat to airway, anaphylaxis, foreign body aspiration, pe, acs, dissection. Unlikely dvt or arterial occlusion Admission/Observation Consideration of admission/observation: Escalation of care including admission/observation considered Likely Lab Data MDM Lab Attestation statement: I reviewed the patient's lab results. 01/01/24 13:40 01/01/24 13:40 Labs: Lab Results 01/01/24 01/01/24 Range/Units 13:40 14:24 WBC 6.4 (4.8-10.8) X10*3/uL RBC 4.09 L (4.20-5.50) X10*6/uL Hgb 12.7 (12.0-16.0) g/dl Hct 38.7 (37.0-47.0) % MCV 94.6 (80.0-98.0) fL MCH 31.1 (27.0-33.0) pg MCHC 32.8 (31.0-35.0) g/dl RDW 14.6 (11.0-16.0) % Plt Count 225 (160-400) X10*3/uL MPV 10.3 (9.4-12.3) fL Immature Gran % (Auto) 0.9 H (0.0-0.4) % Neut % (Auto) 68.1 (45-73) % Lymph % (Auto) 21.9 (20-40) % [place] % (Auto) 5.5 (2-11) % Eos % (Auto) 3.1 (0-4) % Baso % (Auto) 0.5 (0-2) % Lymph # (Auto) 1.4 (1.2-4.9) X10*3/uL [place] # (Auto) 0.4 (0.1-1.2) X10*3/uL Eos # (Auto) 0.2 (0.0-0.4) X10*3/uL Baso # (Auto) 0.0 (0.0-0.2) X10*3/uL Abs Immat Gran (auto) 0.06 H (0.00-0.03) X10*3/uL Absolute Neuts (auto) 4.3 (2.0-8.3) x10*3/uL Absolute Nucleated RBC 0.000 (0.0-0.012) X10*3/uL Nucleated RBC % (auto) 0.0 (0.0-0.2) /100WBC PT 11.2 (11.1-13.3) SEC INR 0.9 (0.9-1.1) Sodium 141 (135-145) mmol/L Potassium 3.7 (3.3-5.1) mmol/L Chloride 105 (96-108) mmol/L Carbon Dioxide 30 H (22-29) mmol/L Anion Gap 10 L (12-20) BUN 15 (9-16) mg/dL Creatinine 0.90 (0.5-1.4) mg/dL Estim Creat Clear Calc 63.9 Estimated GFR > 60 Random Glucose 157 H (60-115) mg/dL Lactic Acid 2.3 H* (0.5-2.0) mmol/L Calcium 9.1 (8.4-10.2) mg/dL Magnesium 1.8 (1.6-2.6) mg/dL Total Bilirubin 0.9 (0.0-1.0) mg/dL AST 26 (5-31) U/L ALT 30 (0-31) U/L Alkaline Phosphatase 63 (39-117) U/L Troponin I High Sens 32.6 H (<3.5-17.0) ng/L B-Natriuretic Peptide 1129 H (<100) pg/mL Total Protein 6.2 L (6.5-8.0) g/dL Albumin 3.7 (3.5-5.0) g/dL Lipase 15 (8-78) U/L Influenza Type A (PCR) NEGATIVE (Negative) Influenza Type B (PCR) NEGATIVE (Negative) RSV RNA Qual (PCR) NEGATIVE (Negative) SARS-CoV-2 RNA (RT-PCR) NEGATIVE (Negative) Independent Interpretation I performed an independent interpretation of an: EKG (Vent. Rate : 108 BPM Atrial Rate : 108 BPM P-R Int : 154 ms QRS Dur : 104 ms QT Int : 330 ms P-R-T Axes : 036 206 034 degrees QTc Int : 442 ms Sinus tachycardia with occasional Premature ventricular complexes Possible Left atrial enlargement Right superior axis deviati) and Plain X-Ray Radiology Impression Discussion of test interpretation with radiology: I have reviewed the radiologist's reading. External Record Review External record reviewed: Outpatient record, Prior outpatient labs and Prior outpatient radiology Critical Care Time Critical Care Time Critical Care Time: Yes Total Critical Care Time: 45 Attestation: I attest to this time spent taking care of the patient, obtaining history, physical, reviewing labs, imaging, speaking to my attending, specialist or hospitalist. Discharge Plan Discharge Clinical Impression: Asthma-COPD overlap syndrome, CHF (congestive heart failure) Patient Disposition: Admitted As Inpatient Prescriptions: No Action omeprazole 40 mg capsule,delayed release(DR/EC) 40 mg PO DAILY Qty: 100 2RF fluticasone propionate [Allergy Relief (fluticasone)] 50 mcg/actuation spray,suspension 1 spray intranasal DAILY 90 Days Qty: 3 3RF Rx Instructions: administer into each nostril loratadine 10 mg tablet 10 mg PO DAILY sertraline 100 mg tablet 100 mg PO DAILY aspirin 81 mg tablet,delayed release (DR/EC) 81 mg PO DAILY lisinopril 5 mg tablet 5 mg PO DAILY metoprolol succinate 50 mg tablet extended release 24 hr 50 mg PO DAILY furosemide 20 mg tablet 20 mg PO DAILY pioglitazone 30 mg tablet 30 mg PO DAILY budesonide 0.5 mg/2 mL suspension for nebulization 0.5 mg inhalation BID 90 Days Qty: 360 3RF amoxicillin-pot clavulanate 875-125 mg tablet 1 tab PO BID 10 Days Qty: 20 0RF prednisone 10 mg tablet 30 mg PO DAILY 30 Days Qty: 90 3RF albuterol sulfate 90 mcg/actuation HFA aerosol inhaler 2 puff PO Q6H PRN (Reason: for wheezing) 90 Days Qty: 34 3RF azithromycin 500 mg tablet 500 mg PO 3XW 90 Days Qty: 39 3RF Rx Instructions: Friday, Friday, Friday ipratropium-albuterol 0.5 mg-3 mg(2.5 mg base)/3 mL solution for nebulization 3 ml inhalation QID Qty: 1260 3RF montelukast 10 mg tablet 10 mg PO DAILY gabapentin 300 mg capsule 300 mg PO TID atorvastatin 80 mg tablet 80 mg PO DAILY (DME) nebulizers Misc See Rx Instructions .ROUTE Rx Instructions: As directed Print Language: Polish
[2024-01-01] MEDS: Albuterol Sulfate 7.5 MG, Albuterol/Iprat 2.5/0.5MG 3 ML 3 ML INHALE (13:34)
[2024-01-01] MEDS: Albuterol Sulfate 5 MG, Albuterol/Iprat 2.5/0.5MG 3 ML 3 ML INHALE ×2 (13:42→14:38)
[2024-01-01 13:44] LABS: MANUAL DIFF FLAG NO
[2024-01-01 13:48] LABS: Basophils Percent Auto 0.5 % (0-2); Eosinophils Absolute Auto 0.2 X10*3/uL (0.0-0.4); Eosinophils Percent Auto 3.1 % (0-4); Hematocrit 38.7 % (37.0-47.0); Hemoglobin 12.7 g/dl (12.0-16.0); Imm Gran Abs Auto 0.06 X10*3/uL (0.00-0.03); Imm Gran Pct Auto 0.9 % (0.0-0.4); Lymphocytes Absolute Auto 1.4 X10*3/uL (1.2-4.9); Lymphocytes Percent Auto 21.9 % (20-40); Mean Corpuscular HGB Conc 32.8 g/dl (31.0-35.0); Mean Corpuscular Hemoglobin 31.1 pg (27.0-33.0); Mean Corpuscular Volume 94.6 fL (80.0-98.0); Mean Platelet Volume 10.3 fL (9.4-12.3); Monocytes Absolute Auto 0.4 X10*3/uL (0.1-1.2); Monocytes Percent Auto 5.5 % (2-11); Neutrophils Absolute Auto 4.3 x10*3/uL (2.0-8.3); Neutrophils Percent Auto 68.1 % (45-73); Platelet Count 225 X10*3/uL (160-400); Red Blood Count 4.09 X10*6/uL (4.20-5.50); Red Cell Distribution Width 14.6 % (11.0-16.0); White Blood Count 6.4 X10*3/uL (4.8-10.8)
[2024-01-01 13:52] LABS: INTERNATIONAL NORM RATIO 0.9 (0.9-1.1); Prothrombin Time 11.2 SEC (11.1-13.3)
[2024-01-01 14:08] LABS: Alanine Aminotransferase 30 U/L (0-31); Albumin Level 3.7 g/dL (3.5-5.0); Alkaline Phosphatase 63 U/L (39-117); Anion Gap 10 (12-20); Aspartate Amino Transferase 26 U/L (5-31); Bilirubin Total 0.9 mg/dL (0.0-1.0); Blood Urea Nitrogen 15 mg/dL (9-16); Calcium 9.1 mg/dL (8.4-10.2); Carbon Dioxide 30 mmol/L (22-29); Chloride 105 mmol/L (96-108); Creatinine Clr Calc Pharmacy 63.9; Estimated Glomerular Filt Rate > 60; Glucose Random 157 mg/dL (60-115); Lipase 15 U/L (8-78); Magnesium 1.8 mg/dL (1.6-2.6); Potassium 3.7 mmol/L (3.3-5.1); Sodium 141 mmol/L (135-145); Total Protein 6.2 g/dL (6.5-8.0)
[2024-01-01 14:14] LABS: B Type Natriuretic Peptide 1129 pg/mL (<100)
[2024-01-01 14:19] LABS: Troponin-I High Sensitivity 32.6 ng/L (<3.5-17.0)
[2024-01-01 14:26] LABS: Influenza A PCR NEGATIVE (Negative); Influenza B PCR NEGATIVE (Negative); Resp Syncy Virus RNA Qual PCR NEGATIVE (Negative); SARS COV2 PCR INHOUSE NEGATIVE (Negative)
[2024-01-01] MEDS: methylPREDNISolone Sod Succ 125 MG/2 ML VIAL IVPUSH (14:32)
[2024-01-01] MEDS: Furosemide 100 MG/10 ML VIAL 60 MG IVPUSH (14:35)
--- NOTE | 2024-01-01 14:38 | PC.RT ---
Pt came into ER in severe respiratory distress w/ audible wheezes. Pt given 20 mg of albuterol, wheezing decreased and SOB improved. After approx 1 hour, RT went back to reassess pt and pt continued to have wheezes with noted crackles in bases. BNP came back as >1,000. Pt placed on CPAP as documented and given another treatment per bronchodilator protocol. Pt resting on CPAP at this time, RN providing care.
[2024-01-01] MEDS: cefTRIAXone sodium 1 GM in 0.9 % Sodium Chloride 50 ML IV (14:40)
[2024-01-01 14:47] LABS: Lactic Acid 2.3 mmol/L (0.5-2.0)
[2024-01-01] MEDS: Magnesium Sulfate/H2O 2 GM/50 ML PIGGYBACK IV (15:36)
--- NOTE | 2024-01-01 16:14 | PHA.MEDREC ---
Pharmacy Consult ? Medication Reconciliation Pharmacy has completed the medication reconciliation. Confirmed meds with patient. She stated she is not using inhaler and nebulizer correctly the last few days but I confirmed the current directions are how she would currently be taking them.
[2024-01-01 16:29] LABS: Reflex Lactate? Lactic Acid Added
--- NOTE | 2024-01-01 16:52 | P.HPHOSP_ITS ---
History of Present Illness Date of Service: 01/01/24 Attending physician on admission: Ankur Becker Chief Complaint: SOB, difficulty breathing Pt is a 68-year-old female with a PMH significant for?asthma/COPD overlap chronically on 2 L home O2, BLAKE not on CPAP, CAD, ID in 2019 s/p stenting and ICD in place, HTN, HLD, and current 1-pack daily smoker who presents to the ED with worsening?SOB, DARBY, and difficulty breathing for the past couple of days. Patient notes she gets out of breath just walking from living room to the bathroom. Has had constant cough that has been only occasionally productive of whitish sputum. Denies fever, chills. Has noticed worsening lower leg edema. Reports no known history of heart failure. Denies orthopnea. No chest pain/pressure or palpitations. Denies nausea, vomiting, diarrhea, abdominal pain. Of note, patient currently smokes 1 pack daily and reports no interest in quitting. States she has had up to 9 family members who almost immediately after quitting smoking. Patient initially arrived to the ED in respiratory distress and placed on rescue CPAP to good effect. In the ED, she was tachycardic up to 1 4, tachypneic up to 35, satting as low as 91% on RA. Labs were significant for lactic acid 2.3, troponin 32.6, and BNP 1129. No leukocytosis. Stable H&H. No significant electrolyte abnormalities. Renal and hepatic function WNL. Tested negative for COVID, flu, RSV. CXR showed left lower lobe atelectasis and/or pneumonia, with mild cardiomegaly but no pleural effusion or pneumothorax. EKG demonstrated sinus tachycardia with PVCs. Pt was treated with DuoNebs, Solu-Medrol, furosemide, ceftriaxone, and Mag sulfate. Pt will be admitted to the hospital for treatment and further evaluation of acute COPD exacerbation with sepsis and likely new onset CHF. Review of Systems 2 Review of Systems: SOB, DARBY Nonproductive cough Increased lower leg edema Denies fever, chills No nausea, vomiting, diarrhea, abdominal pain Denies chest pain/pressure, palpitations [facility] Medical History Asthma Glaucoma Tobacco dependence Asthma Asthma-COPD overlap syndrome BLAKE on CPAP COPD (chronic obstructive pulmonary disease) COPD (chronic obstructive pulmonary disease) Mixed simple and mucopurulent chronic bronchitis Family History Other Asthma Social History Patient Tobacco Use Status: Current everyday Tobacco user Tobacco use type: Cigarette Cigarette Packs Per Day: 1 Cigarettes Per Day: 3 Years Smoked: 50 years Advance Directives: Yes Advance Directives Information Provided: Yes Advance Directives on File: No Do you have a plan to hurt others: No Plan Meds Allergies Allergy/AdvReac Type Severity Reaction Status Date / Time ciprofloxacin Allergy Severe rash Verified 01/01/24 13:23 Home Medications ?Medication ?Instructions ?Recorded ?Confirmed ?Last Taken ?Type aspirin 81 mg tablet,delayed 81 mg PO DAILY 06/02/20 01/01/24 12/31/23 History release furosemide 20 mg tablet 20 mg PO BID 06/02/20 01/01/24 12/31/23 History lisinopril 5 mg tablet 5 mg PO DAILY 06/02/20 01/01/24 12/31/23 History loratadine 10 mg tablet 10 mg PO DAILY 06/02/20 01/01/24 12/31/23 History metoprolol succinate 50 mg 50 mg PO DAILY 06/02/20 01/01/24 12/31/23 History tablet,extended release 24 hr sertraline 100 mg tablet 100 mg PO DAILY 06/02/20 01/01/24 12/31/23 History pioglitazone 30 mg tablet 30 mg PO DAILY 11/20/21 01/01/24 12/31/23 History atorvastatin 80 mg tablet 80 mg PO DAILY 10/23/22 01/01/24 12/31/23 History gabapentin 300 mg capsule 300 mg PO TID 10/23/22 01/01/24 12/31/23 History montelukast 10 mg tablet 10 mg PO DAILY 10/23/22 01/01/24 12/31/23 History nebulizers 10/23/22 Unknown History acetaminophen 500 mg tablet 1,000 mg PO TID 01/01/24 01/01/24 12/31/23 History azithromycin 500 mg tablet 500 mg PO MOWEFR@0900 01/01/24 01/01/24 12/31/23 History multivitamin 1 tab PO DAILY 01/01/24 01/01/24 12/31/23 History Physical Exam 2 Vital Signs and Narrative: Vital Signs: Last Vital Signs Temp 99.6 F 01/01/24 13:20 Pulse 104 H 01/01/24 15:55 Resp 24 H 01/01/24 15:55 BP 126/71 01/01/24 14:35 Pulse Ox 93 01/01/24 15:55 O2 Del Method Room Air 01/01/24 15:55 BMI result Body Mass Index 41.7 Constitutional: Alert, in no acute distress. Mental Status: Oriented to person, place and time. Eyes: Pupils are equal, round, and reactive to light. Ear, Nose, and Throat: Oropharynx clear, mucous membranes moist. Ears and nose without deformities. Trachea midline. Respiratory: Diffuse, significant wheezing and rhonchi bilaterally. Capable of speaking in full sentences but some increased work of breathing. Cardiovascular: S1, S2 regular rhythm, tachycardic. 2/6 murmur noted. Gastrointestinal: Abdomen soft, non-tender, non-distended. Normal bowel sounds. Neurologic: Cranial nerves II-XII are grossly intact bilaterally. No focal neurological deficits. Moves all extremities spontaneously. Skin: Warm, dry. Musculoskeletal: No cyanosis or clubbing. Extremities: 2+ bilateral pitting edema. Psychiatric: Normal mood and affect. Results Labs 01/01/24 13:40 01/01/24 13:40 Labs: Laboratory Results - last 24 hr 01/01/24 01/01/24 13:40 14:24 MCV 94.6 MCH 31.1 MCHC 32.8 RDW 14.6 Plt Count 225 MPV 10.3 Immature Gran % (Auto) 0.9 H Neut % (Auto) 68.1 Lymph % (Auto) 21.9 [place] % (Auto) 5.5 Eos % (Auto) 3.1 Baso % (Auto) 0.5 Lymph # (Auto) 1.4 [place] # (Auto) 0.4 Eos # (Auto) 0.2 Baso # (Auto) 0.0 Abs Immat Gran (auto) 0.06 H Absolute Neuts (auto) 4.3 Absolute Nucleated RBC 0.000 Nucleated RBC % (auto) 0.0 PT 11.2 INR 0.9 Anion Gap 10 L Estim Creat Clear Calc 63.9 Estimated GFR > 60 Random Glucose 157 H Lactic Acid 2.3 H* Calcium 9.1 Magnesium 1.8 Total Bilirubin 0.9 AST 26 ALT 30 Alkaline Phosphatase 63 Troponin I High Sens 32.6 H B-Natriuretic Peptide 1129 H Total Protein 6.2 L Albumin 3.7 Lipase 15 Influenza Type A (PCR) NEGATIVE Influenza Type B (PCR) NEGATIVE RSV RNA Qual (PCR) NEGATIVE SARS-CoV-2 RNA (RT-PCR) NEGATIVE Assessment and Plan (1) COPD with exacerbation: Status: Acute Plan Pt is a 68-year-old female with a PMH significant for?asthma/COPD overlap chronically on 2 L home O2, BLAKE not on CPAP, CAD, ID in 2019 s/p stenting and ICD in place, HTN, HLD, and current 1-pack daily smoker who presents to the ED with worsening?SOB, DARBY, and difficulty breathing for the past couple of days. Pt will be admitted to the hospital for treatment and further evaluation of acute COPD exacerbation with sepsis and likely new onset CHF. Acute COPD exacerbation with sepsis SOB, DARBY, cough, CXR with possible left lower lobe pneumonia Patient meets sepsis criteria: Tachycardia, tachypnea; lactic acid 2.3 Patient is started on broad-spectrum antibiotics in the ED Will treat with ceftriaxone and azithromycin, started 01/01/2024 DuoNebs, Solu-Medrol, guaifenesin Continue home inhalers Pt on chronic home 2L NC Monitor respiratory status Question of CHF BNP elevated at 1129, worsening lower leg edema Furosemide 40 mg IV b.i.d. Follow lytes, MG, I/O Daily weights, low-salt diet Echocardiogram Cardiology consult Admit to telemetry CAD Continue aspirin, statin HTN Continue lisinopril metoprolol Mood disorder Continue sertraline Full Code Attending:?Dr. Becker DVT Prophylaxis: Lovenox Pt will require a hospitalization of at least two nights for treatment of?acute COPD exacerbation in the setting of pneumonia with sepsis as well as new onset CHF. Patient will require treatment with IV diuretics, antibiotics, and steroids, as well as breathing treatments and the close monitoring of labs, and respiratory and cardiac function, and specialist consultation with Cardiology. Quality Stroke Does the patient have a stroke diagnosis?: No VTE Prior VTE?: No VTE Risk Level:: Medical - moderate - high VTE Device Contraindication: Treatment Not Indicated VTE Drug Contraindication: N/A - Med Ordered
[2024-01-01] MEDS: Albuterol Sulfate 2.5 MG, Albuterol/Iprat 2.5/0.5MG 3 ML 3 ML INHALE (17:00)
[2024-01-01 17:13] LABS: ~Lactic Acid-LAB USE ONLY 1.6 mmol/L (0.5-2.0)
[2024-01-01] MEDS: Azithromycin 500 MG in 0.9 % Sodium Chloride 250 ML 125 MG IV (18:16)
[2024-01-01] MEDS: Nicotine 21 MG PATCH.TD24 TRANSDERMA (18:18)
[2024-01-01] MEDS: Furosemide 40 MG TABLET PO (18:20)
[2024-01-01] MEDS: Enoxaparin Sodium 40 MG/0.4 ML SYRINGE SUBCUT (18:22)
[2024-01-01] MEDS: Metoprolol Succinate ER 25 MG TAB.ER.24H PO (18:23)
--- NOTE | 2024-01-01 18:38 | MHC.CM.ED ---
HCP reviewed, completed and signed per patient request. Copies given. [place] into [facility] and [facility] [place] HCP/daughter,Rea Edouard ([phone]).
[2024-01-01] MEDS: Albuterol/Iprat 2.5/0.5MG 3 ML AMPUL.NEB INHALE (18:40)
[2024-01-01 19:05] LABS: Troponin-I High Sensitivity 27.6 ng/L (<3.5-17.0)
[2024-01-01] MEDS: Gabapentin 300 MG CAPSULE PO (20:50)
[2024-01-01] MEDS: 0.9 % Sodium Chloride Flush 3 ML SYRINGE IVFLUSH (21:43)
[2024-01-01] MEDS: Acetaminophen 325 MG TABLET 650 MG PO (21:47)
[2024-01-02] VITALS (12 sets, daily range): BP systolic 119–143; BP diastolic 68–85; PULSE 82–103; RESP 16–26; TEMP 36–37.1; O2SAT 92–94
[2024-01-02] MEDS: methylPREDNISolone Sod Succ 40 MG/ML VIAL IVPUSH ×2 (05:15→16:32)
--- NOTE | 2024-01-02 07:00 | CA_ITS ---
Transthoracic Echocardiogram Patient (Last, First, Middle): Geeta Jacobs E Gender: Female Date of : 1955 Age: 68 Procedure Date: 01/02/2024 Procedure Type: Transthoracic Echocardiogram Location: [facility] [place] Height: 154.94 cm Weight: 98.43 kg BSA: 1.96 m2 Heart Rate: bpm Copy Chaser: DAYNE Thomas MD: Annie ROSS Cone Treater: Edmond Bravo MD Symptoms: Elevated BNP, ?CHF Study Quality: Adequate w contrast ECG Rhythm: Sinus Conclusions: - 1. Mildly dilated left ventricle with severely reduced LV ejection fraction at 25-30% with grade 2 diastolic dysfunction with underlying regional wall motion abnormality consistent with ischemic cardiomyopathy 2. Severely dilated left atrium 3. Severe mitral annular calcification with mild mitral regurgitation 4. Moderate aortic stenosis 5. Moderately elevated right ventricular systolic pressure with significantly elevated right atrial pressures 7. No gross pericardial effusion Findings Procedure Information Contrast agent, definity, is being given per protocol without apparent complications. Left Ventricle Mildly increased left ventricular cavity size. There is normal left ventricular wall thickness. The left ventricular systolic function is severely decreased. The visually estimated ejection fraction is between 25 30%. Spectral Doppler is indicative of a pseudonormal filling pattern. E/E prime ratio is >15, consistent with elevated filling pressures. Evidence suggests grade II (moderate) diastolic dysfunction. Wall Motion Rest Echo Findings The mid anterior, apical lateral, and basal anteroseptal segments are hypokinetic. The apex, apical anterior, apical inferior, apical septum, mid inferoseptal, and mid anteroseptal segments are akinetic. All other scored wall segments showed normal motion. Right Ventricle The right ventricle was not well visualized. There is normal right ventricular systolic function. There is an ICD wire seen in the right ventricle. Atria The left atrium is severely dilated. There is no evidence of interatrial shunt. The right atrium is mildly dilated. Aortic Valve There is mild calcification of the aortic valve. There is mild thickening of the aortic valve. There is moderate aortic valve stenosis. The peak aortic gradient is 36 mmHg.The mean gradient is 21 mmHg. There is no aortic valve regurgitation. Mitral Valve There is mild anterior and severe posterior mitral leaflet thickening. There is severe mitral annular calcification. There is mild mitral valve regurgitation. There is no mitral valve stenosis. Pulmonic Valve The pulmonic valve was not well visualized. Tricuspid Valve Likely normal tricuspid valve structure and function. There is mild tricuspid valve regurgitation. Significantly elevated right atrial pressure. Moderate pulmonary hypertension is present. Great Vessels All visible segments of the aorta are normal in size. The aorta was not well visualized. The pulmonary artery was not well visualized. Small plaque is seen in the sino tubular ridge. Venous The inferior vena cava is moderately dilated and does not collapse with inspiration. Pericardium/Pleural There is no evidence of pericardial effusion. Prior Study Comparison No prior study available for comparison. Measurements 2D Linear Measurements IVSd: 1.06 0.6-0.9/0.6-1.0 cm LVIDd: 5.68 3.9-5.3/4.2-5.9 cm LVIDd Index: 2.90 2.4-3.2/2.2-3.1 cm/m2 LVIDs: 4.91 2.0-3.6 cm LVPWd: 0.94 0.7-1.1 cm Ao Root: 2.80 2.1-3.5 cm LA Diam: 4.40 2.7-3.8/3.0-4.0 cm LAIDs Index: 2.24 1.5-2.3 cm/m2 LV Mass: 281.08 67-162/88-224 g LV Mass Index: 143.41 43-95/49-115 g/m2 LVOT Diam: 2.00 3.0+(-)1.3 cm 2D Systolic Function EF 4C: 26.50 >55% EF 2C: 33.80 >55% EF BiP: 29.80 >55% Mitral Valve MV VTI: 0.38 MV Pk Goyo: 1.67 MV Mn Goyo: 1.21 MV Pk Grad: 11.00 MV Mn Grad: 6.00 MV Pk E: 1.34 MV PK A: 1.08 MV Decel Time: 131.00 E/A: 1.20 E'Lateral: 10.10 E'Medial: 3.26 E/E' Med: 41.10 E/E' Lat: 13.30 PHT: 38.00 MVA PHT: 5.79 MVA Continuity: 1.49 Decel [place]: 10.26 Aortic Valve AoV Pk Goyo: 3.02 AoV Mn Goyo: 2.19 AoV VTI: 0.58 AoV Pk Grad: 36.00 Aov Mn Grad: 21.00 DYLAN Cont.VTI: 0.97 LVOT LVOT Pk Goyo: 0.97 LVOT Mn Goyo: 0.61 LVOT VTI: 0.18 LVOT Pk Grad: 4.00 LVOT Mn Grad: 2.00 LVOT Diam: 2.00 LVOT Area: 3.14 Diastolic Function MV Pk E: 1.34 MV Pk A: 1.08 E/A: 1.20 E'Medial: 3.26 E/E' Med: 41.10 E' Laterial: 10.10 E/E' Lat: 13.30 Right Ventricle TAPSE (mm): 29.00 TVS' Goyo: 13.90 Tricuspid Valve TR Pk Goyo: 3.09 TR Pk Grad: 38.00 RA Press: 15.00 RVSP: 53.00 Great Vessels Aorta Ao Root-2D: 2.80 2.0-3.7 cm Ao Asc: 3.00 2.1-3.4 cm Updated in Other Vendor System with Status of Final Edmond Bravo MD electronically signed on 01/02/2024 5:09:15 PM with status of Final
[2024-01-02 07:08] LABS: Anion Gap 13 (12-20); Blood Urea Nitrogen 11 mg/dL (9-16); Carbon Dioxide 30 mmol/L (22-29); Chloride 100 mmol/L (96-108); Creatinine Clr Calc Pharmacy 67.9; Estimated Glomerular Filt Rate > 60; Glucose Random 170 mg/dL (60-115); Potassium 3.8 mmol/L (3.3-5.1); Sodium 139 mmol/L (135-145)
[2024-01-02] MEDS: Albuterol/Iprat 2.5/0.5MG 3 ML AMPUL.NEB INHALE ×4 (07:18→19:21)
--- NOTE | 2024-01-02 08:40 | MHC.CM.PN ---
CM met with Patient at bedside and addressed IMM with her, providing Patient with the original and a copy has been placed on the chart. Patient lives in a house with her and she receives home O2 from [facility]. Patient was functionally independent [employer] and may benefit from VNA services r/t her COPD. CM has initiated and will follow for dc planning. PCP is Dr. Araseli Calvo and Daughter/Rea is the HCP.
[2024-01-02] MEDS: Nicotine 21 MG PATCH.TD24 TRANSDERMA (09:57)
[2024-01-02] MEDS: Omeprazole 40 MG CAPSULE.DR PO (09:58)
[2024-01-02] MEDS: Sertraline HCL 100 MG TABLET PO (09:58)
[2024-01-02] MEDS: Furosemide 40 MG TABLET PO ×2 (09:58→18:11)
[2024-01-02] MEDS: Montelukast Sodium 10 MG TABLET PO (09:58)
[2024-01-02] MEDS: lisinopriL 5 MG TABLET PO (09:58)
[2024-01-02] MEDS: Aspirin Enteric Coated 81 MG TABLET.DR PO (09:58)
[2024-01-02] MEDS: Loratadine 10 MG TABLET PO (09:58)
[2024-01-02] MEDS: Metoprolol Succinate ER 50 MG TAB.ER.24H PO (09:59)
[2024-01-02] MEDS: Atorvastatin Calcium 80 MG TABLET PO (09:59)
[2024-01-02] MEDS: Multivitamin TABLET 1 TAB PO (09:59)
[2024-01-02] MEDS: Pioglitazone HCL 30 MG TABLET PO (09:59)
[2024-01-02] MEDS: 0.9 % Sodium Chloride Flush 3 ML SYRINGE IVFLUSH ×3 (10:00→23:00)
[2024-01-02] MEDS: Fluticasone Propionate Nasal 16 GM SPRAY 1 SPRAY NOSTRIL-B (10:14)
[2024-01-02] MEDS: Gabapentin 300 MG CAPSULE PO ×3 (10:15→22:56)
--- NOTE | 2024-01-02 11:45 | PM.CNCAR ---
History of Present Illness History of Present Illness Date of Service: 01/02/24 Requesting physician: Ankur Becker Consult reason: congestive heart failure Chief complaint: COPD and CHF exacerbation Narrative: I was consulted to see Geeta in cardiology consultation today for acute shortness of breath and management of heart failure with reduced ejection fraction, acute. Patient is 68-year-old female with prior anterior STEMI in May 2019 undergoing emergently drug-eluting stent placement to proximal LAD but subsequently ended up having persistent severe ischemic cardiomyopathy undergoing a single-chamber [employer] ICD for primary prevention and being managed as outpatient with neurohormonal modulation and being followed by EP/cardiology team at [facility]. Patient is currently on lisinopril 5 mg as well as metoprolol for neurohormonal modulation as well as aspirin, statins as well as low-dose Lasix therapy. She has never been admitted as per her for heart failure exacerbation. She has pretty advanced COPD recommended oxygen around the clock but she only uses oxygen at nighttime. She unfortunately continues to smoke. She follows with Dr. Stern from Pulmonary. Patient is on adequate nebulizer treatment. Patient came to the hospital with worsening shortness of breath, phlegm production and significant wheezing. When she came into the hospital she was noted to have hypoxemic respiratory failure along with some lactic acidosis and was noted to be in heart failure along with elevated BNP. Cardiology was consulted to manage her heart failure component. She continues to be short of breath and is wheezing but says is much better compared to yesterday. She has been started on treatment for COPD exacerbation as well as heart failure. Negative balance listed as 350 mL. Review of Systems Constitutional: Constitutional: Denies chills and Denies fever(s) Cardiovascular: Cardiovascular: Denies chest pain, Reports leg edema, Denies lightheadedness, Denies Loss of Consciousness, Denies palpitations, Reports dyspnea and Reports dyspnea on exertion Respiratory: Respiratory: Reports excessive phlegm production, Reports dyspnea, Reports dyspnea on exertion and Reports wheezing Gastrointestinal: Gastrointestinal: Reports no additional gastrointestinal complaints Genitourinary: Genitourinary: Reports no additional female genitourinary complaints Musculoskeletal: Musculoskeletal: Reports no additional musculoskeletal complaints Integumentary/Breasts: Skin/Breast: Reports system reviewed and no additional complaints, except as docu Neurologic: Reports system reviewed and no additional complaints, except as documented Psychiatric: Psychiatric: Reports no additional psychiatric complaints Endocrine: Endocrine: Denies palpitations Allergic/Immunologic: Allergic/Immunologic: Reports wheezing [facility] Past Medical History Medical History Asthma Glaucoma Tobacco dependence Asthma Asthma-COPD overlap syndrome BLAKE on CPAP COPD (chronic obstructive pulmonary disease) COPD (chronic obstructive pulmonary disease) Mixed simple and mucopurulent chronic bronchitis Family History Family History Other Asthma Social History Social History Household Members: Spouse Housing: House Do you presently have visiting nurse or other home services: No Patient Tobacco Use Status: Current everyday Tobacco user Tobacco use type: Cigarette Cigarette Packs Per Day: 1 Cigarettes Per Day: 3 Years Smoked: 50 years Advance Directives Date on File: 01/01/24 service: No Meds Allergies Allergy/AdvReac Type Severity Reaction Status Date / Time ciprofloxacin Allergy Severe rash Verified 01/01/24 13:23 Active Medications: Current Medications Acetaminophen (Acetaminophen 325 Mg Tablet) 650 mg PO Q6H PRN PRN Reason: Pain, Mild (Pain Scale 1-3) Last Admin: 01/01/24 21:47 Dose: 650 mg Albuterol/Ipratropium (Albuterol/Iprat 2.5/0.5mg 3 Ml Ampul.Neb) 3 ml INHALE RQ4H WHILE AWAKE [facility] Last Admin: 01/02/24 07:18 Dose: 3 ml Albuterol/Ipratropium (Albuterol/Iprat 2.5/0.5mg 3 Ml Ampul.Neb) 3 ml INHALE RQ4H WHILE AWAKE PRN PRN Reason: Shortness of Breath/Wheezing Aspirin (Aspirin Enteric Coated 81 Mg Tablet.) 81 mg PO DAILY [facility] Last Admin: 01/02/24 09:58 Dose: 81 mg Atorvastatin Calcium (Atorvastatin Calcium 80 Mg Tablet) 80 mg PO DAILY [facility] Last Admin: 01/02/24 09:59 Dose: 80 mg Docusate Sodium (Docusate Sodium 100 Mg Capsule) 100 mg PO DAILY PRN PRN Reason: Constipation Enoxaparin Sodium (Enoxaparin Sodium 40 Mg/0.4 Ml Syringe) 40 mg SUBCUT Q24H [facility] Last Admin: 01/01/24 18:22 Dose: 40 mg Fluticasone Propionate (Fluticasone Propionate Nasal 16 Gm [place]) 1 spray NOSTRIL-B DAILY [facility] Last Admin: 01/02/24 10:14 Dose: 1 spray Furosemide (Furosemide 40 Mg Tablet) 40 mg PO BID@0900,1800 [facility]; Protocol Last Admin: 01/02/24 09:58 Dose: 40 mg Gabapentin (Gabapentin 300 Mg Capsule) 300 mg PO TID [facility] Last Admin: 01/02/24 10:15 Dose: 300 mg Guaifenesin/Dextromethorphan (Guaifenesin Dm 200/20/10 Ml 10 Ml Syrup) 10 ml PO Q6H PRN PRN Reason: Cough Ceftriaxone Sodium 1 gm/ (Sodium Chloride) 50 mls @ 100 mls/hr IV Q24H SHELLY Azithromycin 500 mg/ Sodium (Chloride) 250 mls @ 125 mls/hr IV Q24H [facility] Last Infusion: 01/01/24 21:15 Dose: Infused Lisinopril (Lisinopril 5 Mg Tablet) 5 mg PO DAILY [facility]; Protocol Last Admin: 01/02/24 09:58 Dose: 5 mg Loratadine (Loratadine 10 Mg Tablet) 10 mg PO DAILY [facility] Last Admin: 01/02/24 09:58 Dose: 10 mg Melatonin (Melatonin 3 Mg Tablet) 6 mg PO BEDTIME PRN PRN Reason: Insomnia Methylprednisolone Sodium Succinate (Methylprednisolone Sod Succ 40 Mg/Ml Vial) 40 mg IVPUSH Q12H [facility] Last Admin: 01/02/24 05:15 Dose: 40 mg Metoprolol Succinate (Metoprolol Succinate Er 50 Mg Tab.Er.24h) 50 mg PO DAILY [facility]; Protocol Last Admin: 01/02/24 09:59 Dose: 50 mg Montelukast Sodium (Montelukast Sodium 10 Mg Tablet) 10 mg PO DAILY [facility] Last Admin: 01/02/24 09:58 Dose: 10 mg Multivitamins/Vitamin C (Multivitamin Tablet) 1 tab PO DAILY [facility] Last Admin: 01/02/24 09:59 Dose: 1 tab Nicotine (Nicotine 21 Mg Patch.Td24) 21 mg TRANSDERMA DAILY [facility] Last Admin: 01/02/24 09:57 Dose: 21 mg Omeprazole (Omeprazole 40 Mg Capsule.Dr) 40 mg PO DAILY [facility] Last Admin: 01/02/24 09:58 Dose: 40 mg Ondansetron HCl (Ondansetron Hcl 4 Mg/2 Ml Vial) 4 mg IVPUSH Q8H PRN PRN Reason: Nausea and Vomiting Pioglitazone HCl (Pioglitazone Hcl 30 Mg Tablet) 30 mg PO DAILY [facility] Last Admin: 01/02/24 09:59 Dose: 30 mg Sertraline HCl (Sertraline Hcl 100 Mg Tablet) 100 mg PO DAILY [facility] Last Admin: 01/02/24 09:58 Dose: 100 mg Sodium Chloride (0.9 % Sodium Chloride Flush 3 Ml Syringe) [address] [facility] Last Admin: 01/02/24 10:00 Dose: 3 ml Home Medications ?Medication ?Instructions ?Recorded ?Confirmed ?Last Taken ?Type aspirin 81 mg tablet,delayed 81 mg PO DAILY 06/02/20 01/01/24 12/31/23 History release furosemide 20 mg tablet 20 mg PO BID 06/02/20 01/01/24 12/31/23 History lisinopril 5 mg tablet 5 mg PO DAILY 06/02/20 01/01/24 12/31/23 History loratadine 10 mg tablet 10 mg PO DAILY 06/02/20 01/01/24 12/31/23 History metoprolol succinate 50 mg 50 mg PO DAILY 06/02/20 01/01/24 12/31/23 History tablet,extended release 24 hr sertraline 100 mg tablet 100 mg PO DAILY 06/02/20 01/01/24 12/31/23 History pioglitazone 30 mg tablet 30 mg PO DAILY 11/20/21 01/01/24 12/31/23 History atorvastatin 80 mg tablet 80 mg PO DAILY 10/23/22 01/01/24 12/31/23 History gabapentin 300 mg capsule 300 mg PO TID 10/23/22 01/01/24 12/31/23 History montelukast 10 mg tablet 10 mg PO DAILY 10/23/22 01/01/24 12/31/23 History nebulizers 10/23/22 Unknown History acetaminophen 500 mg tablet 1,000 mg PO TID 01/01/24 01/01/24 12/31/23 History azithromycin 500 mg tablet 500 mg PO MOWEFR@0900 01/01/24 01/01/24 12/31/23 History multivitamin 1 tab PO DAILY 01/01/24 01/01/24 12/31/23 History Physical Exam Vital Signs: Vital Signs: Last Vital Signs Temp 96.8 F 01/02/24 11:18 Pulse 103 H 01/02/24 11:18 Resp 20 01/02/24 11:18 BP 136/73 01/02/24 11:18 Pulse Ox 93 01/02/24 11:18 O2 Del Method Room Air 01/02/24 11:18 BMI result Body Mass Index 41.0 Const: General: cooperative, well developed, alert, awake and in distress mild and respiratory Nutritional Appearance: obese Orientation/consciousness: patient oriented x3 HEENT: Head: Yes normocephalic and Yes atraumatic Neck: Neck: Yes trachea midline, Yes supple and Yes other (Difficulty well JVD) Resp: Effort & Inspection: labored Auscultation: wheezes throughout Cardio: Rate: regular rate Rhythm: regular rhythm Heart sounds: S1 normal heart sound present, S2 normal heart sound present, no click, no gallops, no murmurs and no rubs GI: Auscultation: normal bowel sounds Skin: General skin exam: no rashes or lesions noted and ecchymosis Neuro: General: patient oriented x3 and no focal motor deficits Extrem: General: No clubbing, No cyanosis and Yes edema Objective Labs and Meds 01/01/24 13:40 01/02/24 06:07 Lab results: Laboratory Results - last 24 hr 01/01/24 01/01/24 01/01/24 13:40 14:24 16:54 WBC 6.4 RBC 4.09 L Hgb 12.7 Hct 38.7 MCV 94.6 MCH 31.1 MCHC 32.8 RDW 14.6 Plt Count 225 MPV 10.3 Immature Gran % (Auto) 0.9 H Neut % (Auto) 68.1 Lymph % (Auto) 21.9 [place] % (Auto) 5.5 Eos % (Auto) 3.1 Baso % (Auto) 0.5 Lymph # (Auto) 1.4 [place] # (Auto) 0.4 Eos # (Auto) 0.2 Baso # (Auto) 0.0 Abs Immat Gran (auto) 0.06 H Absolute Neuts (auto) 4.3 Absolute Nucleated RBC 0.000 Nucleated RBC % (auto) 0.0 Hold Purple Top PT 11.2 INR 0.9 Sodium 141 Potassium 3.7 Chloride 105 Carbon Dioxide 30 H Anion Gap 10 L BUN 15 Creatinine 0.90 Estim Creat Clear Calc 63.9 Estimated GFR > 60 Random Glucose 157 H Lactic Acid 2.3 H* Lactic Acid F/U @ 2Hr 1.6 Calcium 9.1 Magnesium 1.8 Total Bilirubin 0.9 AST 26 ALT 30 Alkaline Phosphatase 63 Troponin I High Sens 32.6 H B-Natriuretic Peptide 1129 H Total Protein 6.2 L Albumin 3.7 Lipase 15 Influenza Type A (PCR) NEGATIVE Influenza Type B (PCR) NEGATIVE RSV RNA Qual (PCR) NEGATIVE SARS-CoV-2 RNA (RT-PCR) NEGATIVE 01/01/24 01/02/24 18:34 06:07 WBC RBC Hgb Hct MCV MCH MCHC RDW Plt Count MPV Immature Gran % (Auto) Neut % (Auto) Lymph % (Auto) [place] % (Auto) Eos % (Auto) Baso % (Auto) Lymph # (Auto) [place] # (Auto) Eos # (Auto) Baso # (Auto) Abs Immat Gran (auto) Absolute Neuts (auto) Absolute Nucleated RBC Nucleated RBC % (auto) Hold Purple Top SEE NOTE PT INR Sodium 139 Potassium 3.8 Chloride 100 Carbon Dioxide 30 H Anion Gap 13 BUN 11 Creatinine 0.84 Estim Creat Clear Calc 67.9 Estimated GFR > 60 Random Glucose 170 H Lactic Acid Lactic Acid F/U @ 2Hr Calcium 9.0 Magnesium 2.0 Total Bilirubin AST ALT Alkaline Phosphatase Troponin I High Sens 27.6 H B-Natriuretic Peptide Total Protein Albumin Lipase Influenza Type A (PCR) Influenza Type B (PCR) RSV RNA Qual (PCR) SARS-CoV-2 RNA (RT-PCR) EKG shows sinus tachycardia with PACs as well as PVCs with nonspecific ST changes Imaging Radiologist's impression: Impressions Chest X-Ray 01/01/24 15:30 IMPRESSION: 1. Left lower lobe atelectasis and/or pneumonia. 2. No pleural effusion or pneumothorax. 3. Mild cardiomegaly. Assessment and Plan (1) Acute hypoxemic respiratory failure: Status: Acute Acute hypoxemic respiratory failure secondary to severe COPD exacerbation with decompensated congestive heart failure. Management for congestive heart failure as below. COPD management as per the hospitalist team. Consider pulmonary consultation. (2) Acute congestive heart failure: Status: Acute Patient with severe ischemic cardiomyopathy presents with COPD exacerbation causing acute decompensated congestive heart failure. Agree with IV diuresis. Strict intake and output chart needs to be pursued. Will continue with metoprolol therapy for now. Would like to switch her lisinopril to valsartan therapy for now at 40 mg b.i.d. and eventually once stable switch to Entresto therapy if tolerated. Will also discontinue Actos and switch her to Jardiance/for seizure therapy. Obtain echocardiogram. Discussed with her about complete smoking cessation to prevent ongoing worsening cardiovascular as well as pulmonary situation. She showed understanding. Continue aspirin, high-intensity statin therapy for her coronary artery disease and diabetes management as per the hospitalist team. Will continue to follow with you Procedures Date of Service Date of Service: 01/02/24
[2024-01-02] MEDS: cefTRIAXone sodium 1 GM in 0.9 % Sodium Chloride 50 ML IV (16:31)
[2024-01-02] MEDS: Acetaminophen 325 MG TABLET 650 MG PO (16:31)
[2024-01-02] MEDS: Enoxaparin Sodium 40 MG/0.4 ML SYRINGE SUBCUT (18:11)
[2024-01-02] MEDS: Azithromycin 500 MG in 0.9 % Sodium Chloride 250 ML 125 MG IV (18:11)
[2024-01-02] MEDS: Acetaminophen 325 MG TABLET 975 MG PO (22:55)
[2024-01-02] MEDS: Valsartan 40 MG TABLET PO (22:56)
[2024-01-03] VITALS (12 sets, daily range): BP systolic 105–145; BP diastolic 64–82; PULSE 75–97; RESP 16–20; TEMP 35.8–36.8; O2SAT 91–98
[2024-01-03] MEDS: Albuterol/Iprat 2.5/0.5MG 3 ML AMPUL.NEB INHALE ×5 (03:49→19:23)
[2024-01-03] MEDS: methylPREDNISolone Sod Succ 40 MG/ML VIAL IVPUSH ×2 (04:14→16:30)
[2024-01-03 06:54] LABS: Anion Gap 14 (12-20); Blood Urea Nitrogen 14 mg/dL (9-16); Calcium 8.7 mg/dL (8.4-10.2); Carbon Dioxide 27 mmol/L (22-29); Chloride 98 mmol/L (96-108); Creatinine Clr Calc Pharmacy 67.9; Estimated Glomerular Filt Rate > 60; Glucose Random 155 mg/dL (60-115); Potassium 3.7 mmol/L (3.3-5.1); Sodium 135 mmol/L (135-145)
[2024-01-03] MEDS: 0.9 % Sodium Chloride Flush 3 ML SYRINGE IVFLUSH ×2 (08:39→16:31)
[2024-01-03] MEDS: Valsartan 40 MG TABLET PO (08:40)
[2024-01-03] MEDS: Aspirin Enteric Coated 81 MG TABLET.DR PO (08:40)
[2024-01-03] MEDS: Multivitamin TABLET 1 TAB PO (08:42)
[2024-01-03] MEDS: Atorvastatin Calcium 80 MG TABLET PO (08:43)
[2024-01-03] MEDS: Furosemide 40 MG TABLET PO ×2 (08:43→17:34)
[2024-01-03] MEDS: Gabapentin 300 MG CAPSULE PO ×3 (08:43→22:04)
[2024-01-03] MEDS: Omeprazole 40 MG CAPSULE.DR PO (08:43)
[2024-01-03] MEDS: Montelukast Sodium 10 MG TABLET PO (08:43)
[2024-01-03] MEDS: Sertraline HCL 100 MG TABLET PO (08:43)
[2024-01-03] MEDS: Loratadine 10 MG TABLET PO (08:43)
[2024-01-03] MEDS: Metoprolol Succinate ER 50 MG TAB.ER.24H PO (08:44)
[2024-01-03] MEDS: Nicotine 21 MG PATCH.TD24 TRANSDERMA (08:45)
[2024-01-03] MEDS: Fluticasone Propionate Nasal 16 GM SPRAY 1 SPRAY NOSTRIL-B (08:45)
[2024-01-03] MEDS: Empagliflozin 25 MG TABLET PO (09:38)
--- NOTE | 2024-01-03 10:32 | HO.PM.IMPN ---
Subjective Subjective Date of Service: 01/03/24 Interval History: sob on mild exertion Physical Exam Vital Signs: Vital Signs: Last Vital Signs Temp 97.4 F 01/03/24 08:00 Pulse 92 01/03/24 08:23 Resp 20 01/03/24 08:23 BP 139/68 01/03/24 08:00 Pulse Ox 93 01/03/24 08:00 O2 Del Method Room Air 01/03/24 08:00 BMI result Body Mass Index 41.0 Const: General: cooperative, well developed, alert, awake and in distress mild and respiratory Nutritional Appearance: obese Orientation/consciousness: patient oriented x3 HEENT: Head: Yes normocephalic and Yes atraumatic Neck: Neck: Yes trachea midline, Yes supple and Yes other (Difficulty well JVD) Resp: Effort & Inspection: labored Auscultation: wheezes throughout Cardio: Rate: regular rate Rhythm: regular rhythm Heart sounds: S1 normal heart sound present, S2 normal heart sound present, no click, no gallops, no murmurs and no rubs GI: Auscultation: normal bowel sounds Skin: General skin exam: no rashes or lesions noted and ecchymosis Neuro: General: patient oriented x3 and no focal motor deficits Extrem: General: No clubbing, No cyanosis and Yes edema Objective Data Active Medications Acetaminophen (Acetaminophen 325 Mg Tablet) 650 mg PO Q6H PRN PRN Reason: Pain, Mild (Pain Scale 1-3) Last Admin: 01/02/24 16:31 Dose: 650 mg Documented By: ANDRE Albuterol/Ipratropium (Albuterol/Iprat 2.5/0.5mg 3 Ml Ampul.Neb) 3 ml INHALE RQ4H WHILE AWAKE [facility] Last Admin: 01/03/24 08:19 Dose: 3 ml Documented By: BINTA Albuterol/Ipratropium (Albuterol/Iprat 2.5/0.5mg 3 Ml Ampul.Neb) 3 ml INHALE RQ4H WHILE AWAKE PRN PRN Reason: Shortness of Breath/Wheezing Last Admin: 01/03/24 03:49 Dose: 3 ml Documented By: RADHA Aspirin (Aspirin Enteric Coated 81 Mg Tablet.) 81 mg PO DAILY [facility] Last Admin: 01/03/24 08:40 Dose: 81 mg Documented By: LASHON Atorvastatin Calcium (Atorvastatin Calcium 80 Mg Tablet) 80 mg PO DAILY [facility] Last Admin: 01/03/24 08:43 Dose: 80 mg Documented By: LASHON Docusate Sodium (Docusate Sodium 100 Mg Capsule) 100 mg PO DAILY PRN PRN Reason: Constipation Empagliflozin (Empagliflozin 25 Mg Tablet) 25 mg PO DAILY [facility] Last Admin: 01/03/24 09:38 Dose: 25 mg Documented By: LASHON Enoxaparin Sodium (Enoxaparin Sodium 40 Mg/0.4 Ml Syringe) 40 mg SUBCUT Q24H [facility] Last Admin: 01/02/24 18:11 Dose: 40 mg Documented By: ANDRE Fluticasone Propionate (Fluticasone Propionate Nasal 16 Gm [place]) 1 spray NOSTRIL-B DAILY [facility] Last Admin: 01/03/24 08:45 Dose: 1 spray Documented By: LASHON Furosemide (Furosemide 40 Mg Tablet) 40 mg PO BID@0900,1800 [facility]; Protocol Last Admin: 01/03/24 08:43 Dose: 40 mg Documented By: LASHON Gabapentin (Gabapentin 300 Mg Capsule) 300 mg PO TID [facility] Last Admin: 01/03/24 08:43 Dose: 300 mg Documented By: LASHON Guaifenesin/Dextromethorphan (Guaifenesin Dm 200/20/10 Ml 10 Ml Syrup) 10 ml PO Q6H PRN PRN Reason: Cough Ceftriaxone Sodium 1 gm/ (Sodium Chloride) 50 mls @ 100 mls/hr IV Q24H [facility] Last Infusion: 01/02/24 17:13 Dose: Infused Documented By: ANDRE Azithromycin 500 mg/ Sodium (Chloride) 250 mls @ 125 mls/hr IV Q24H [facility] Last Infusion: 01/02/24 20:15 Dose: Infused Documented By: TYRONE Loratadine (Loratadine 10 Mg Tablet) 10 mg PO DAILY [facility] Last Admin: 01/03/24 08:43 Dose: 10 mg Documented By: LASHON Melatonin (Melatonin 3 Mg Tablet) 6 mg PO BEDTIME PRN PRN Reason: Insomnia Methylprednisolone Sodium Succinate (Methylprednisolone Sod Succ 40 Mg/Ml Vial) 40 mg IVPUSH Q12H [facility] Last Admin: 01/03/24 04:14 Dose: 40 mg Documented By: TYRONE Metoprolol Succinate (Metoprolol Succinate Er 50 Mg Tab.Er.24h) 50 mg PO DAILY [facility]; Protocol Last Admin: 01/03/24 08:44 Dose: 50 mg Documented By: LASHON Montelukast Sodium (Montelukast Sodium 10 Mg Tablet) 10 mg PO DAILY [facility] Last Admin: 01/03/24 08:43 Dose: 10 mg Documented By: LASHON Multivitamins/Vitamin C (Multivitamin Tablet) 1 tab PO DAILY [facility] Last Admin: 01/03/24 08:42 Dose: 1 tab Documented By: LASHON Nicotine (Nicotine 21 Mg Patch.Td24) 21 mg TRANSDERMA DAILY [facility] Last Admin: 01/03/24 08:45 Dose: 21 mg Documented By: LASHON Omeprazole (Omeprazole 40 Mg Capsule.Dr) 40 mg PO DAILY [facility] Last Admin: 01/03/24 08:43 Dose: 40 mg Documented By: LASHON Ondansetron HCl (Ondansetron Hcl 4 Mg/2 Ml Vial) 4 mg IVPUSH Q8H PRN PRN Reason: Nausea and Vomiting Sacubitril/Valsartan (Sacubitril/Valsartan 49/51 1 Tab Tablet) 1 tab PO BID [facility]; Protocol Sertraline HCl (Sertraline Hcl 100 Mg Tablet) 100 mg PO DAILY [facility] Last Admin: 01/03/24 08:43 Dose: 100 mg Documented By: LASHON Sodium Chloride (0.9 % Sodium Chloride Flush 3 Ml Syringe) 3 ml IVFLUSH QSHIFT [facility] Last Admin: 01/03/24 08:39 Dose: 3 ml Documented By: LASHON Labs 01/01/24 13:40 01/03/24 06:18 Labs: Laboratory Results - last 24 hr 01/03/24 06:18 Anion Gap 14 Estim Creat Clear Calc 67.9 Estimated GFR > 60 Random Glucose 155 H Calcium 8.7 Magnesium 2.0 Microbiology Microbiology Results: Microbiology 01/01/24 14:33 Blood Culture - Preliminary Blood - Venous No growth after 24 hours. 01/01/24 14:24 Blood Culture - Preliminary Blood - Venous No growth after 24 hours. Assessment and Plan (1) Acute congestive heart failure: Status: Acute Plan 68F PMH chronic hypoxic respiratory failue on 2L home o2, copd, gaurav not on CPAP, coronary disease, [place] in 2019 status post stenting complicated by ischemic cardiomyopathy and ICD, hypertension, hyperlipidemia presented with shortness of breath Sepsis due to COPD with acute decompensation IV steroids, ceftriaxone azithromycin, DuoNebs Acute on chronic systolic CHF Continue IV Lasix Lisinopril changed to Entresto Continue metoprolol Actos changed to Jardiance Coronary artery disease Continue aspirin statin Hypertension Continue Entresto, metoprolol Mood disorder Sertraline DVT prophylaxis with Lovenox Full Code reason for continued hospitalization: Ongoing IV diuresis Quality Stroke Does the patient have a stroke diagnosis?: No VTE Prior VTE?: No VTE Risk Level:: Medical - moderate - high VTE Device Contraindication: Treatment Not Indicated VTE Drug Contraindication: N/A - Med Ordered
--- NOTE | 2024-01-03 10:34 | P.PNCA_ITS ---
Subjective Subjective Date of Service: 01/03/24 Principal diagnosis: CHF, COPD exac Interval history: Patient says she is breathing better and she wants to go home. Although she continues to have significant wheezing and shortness of breath even with minimal walking. She continues to have leg edema. Echocardiogram shows severe LV systolic dysfunction with LVEF of 25-30% with significantly elevated right atrial pressures. Review of Systems Constitutional: Reports no additional constitutional complaints Cardiovascular: Denies chest pain, Reports leg edema, Denies lightheadedness, Denies Loss of Consciousness, Reports dyspnea on exertion and Reports orthopnea Respiratory: Reports cough, Reports dyspnea on exertion and Reports wheezing Reports system reviewed and no additional complaints, except as documented Psychiatric: Reports no additional psychiatric complaints Allergic/Immunologic: Reports wheezing Physical Exam Vital Signs: Last Vital Signs Temp 97.4 F 01/03/24 08:00 Pulse 92 01/03/24 08:23 Resp 20 01/03/24 08:23 BP 139/68 01/03/24 08:00 Pulse Ox 93 01/03/24 08:00 O2 Del Method Room Air 01/03/24 08:00 BMI result Body Mass Index 41.0 Const General: cooperative, comfortable, alert, awake and in distress mild and respiratory Nutritional Appearance: obese Orientation/consciousness: patient oriented x3 Neck Neck: Yes trachea midline, Yes supple and Yes JVD Resp Effort & Inspection: labored Auscultation: wheezes throughout Cardio Jugular venous distension: JVD Rate: regular rate Rhythm: abnormal rhythm with ectopic beats Heart sounds: S1 normal heart sound present, S2 normal heart sound present, no click and no gallops GI Auscultation: normal bowel sounds Neuro General: patient oriented x3 and no focal motor deficits Extrem General: No clubbing, No cyanosis and Yes edema Objective Labs and Meds 01/01/24 13:40 01/03/24 06:18 Lab results: Laboratory Results - last 24 hr 01/03/24 06:18 Sodium 135 Potassium 3.7 Chloride 98 Carbon Dioxide 27 Anion Gap 14 BUN 14 Creatinine 0.84 Estim Creat Clear Calc 67.9 Estimated GFR > 60 Random Glucose 155 H Calcium 8.7 Magnesium 2.0 Progress Note: A&P Assessment and plan (1) Acute congestive heart failure: Status: Acute Assessment and Plan: Decompensated congestive heart failure as a contributing factor to her symptoms and acute respiratory failure with hypoxemia. Continue IV diuresis. Strict intake and output chart needs to be pursued. Switch losartan to Entresto therapy at 49-51 mg b.i.d.. Role of Entresto therapy was discussed with her. Also switch was made to Jardiance from Actos which is great. Continue beta- josseline therapy. Continue aspirin, statin therapy. Continue aggressive management of COPD exacerbation with more frequent nebulizer treatment and switch her to pulmonary specific nebulizer such as Xopenex. Will continue to follow with you Time Spent With Patient Time: Total time managing care of this patient today ____ minutes. Progress Note: Quality Stroke Does the patient have a stroke diagnosis?: No Procedures Date of Service Date of Service: 01/03/24
[2024-01-03] MEDS: cefTRIAXone sodium 1 GM in 0.9 % Sodium Chloride 50 ML IV (14:23)
[2024-01-03] MEDS: Enoxaparin Sodium 40 MG/0.4 ML SYRINGE SUBCUT (17:35)
[2024-01-03] MEDS: Azithromycin 500 MG in 0.9 % Sodium Chloride 250 ML 125 MG IV (17:35)
[2024-01-03] MEDS: Sacubitril/Valsartan 49/51 1 TAB TABLET PO (22:11)
[2024-01-04] VITALS (11 sets, daily range): BP systolic 106–152; BP diastolic 57–70; PULSE 51–109; RESP 16–20; TEMP 36.3–37.1; O2SAT 92–98
[2024-01-04] MEDS: methylPREDNISolone Sod Succ 40 MG/ML VIAL IVPUSH ×2 (04:54→15:21)
[2024-01-04] MEDS: levalbuterol HCL 1.25 MG/3 ML VIAL.NEB INHALE ×3 (07:24→19:38)
[2024-01-04 07:36] LABS: Hematocrit 39.9 % (37.0-47.0); Hemoglobin 13.2 g/dl (12.0-16.0); Mean Corpuscular HGB Conc 33.1 g/dl (31.0-35.0); Mean Corpuscular Hemoglobin 30.7 pg (27.0-33.0); Mean Corpuscular Volume 92.8 fL (80.0-98.0); Mean Platelet Volume 10.5 fL (9.4-12.3); Platelet Count 274 X10*3/uL (160-400); Red Cell Distribution Width 14.2 % (11.0-16.0); White Blood Count 10.9 X10*3/uL (4.8-10.8)
[2024-01-04 08:03] LABS: Anion Gap 14 (12-20); Blood Urea Nitrogen 19 mg/dL (9-16); Calcium 8.7 mg/dL (8.4-10.2); Carbon Dioxide 29 mmol/L (22-29); Chloride 98 mmol/L (96-108); Estimated Glomerular Filt Rate > 60; Glucose Fasting 167 mg/dL (60-99); Glucose Random 167 mg/dL (60-115); Magnesium 2.1 mg/dL (1.6-2.6); Potassium 3.5 mmol/L (3.3-5.1); Sodium 137 mmol/L (135-145)
[2024-01-04] MEDS: 0.9 % Sodium Chloride Flush 3 ML SYRINGE IVFLUSH ×3 (08:42→23:12)
[2024-01-04] MEDS: Nicotine 21 MG PATCH.TD24 TRANSDERMA (08:42)
[2024-01-04] MEDS: Furosemide 40 MG TABLET PO ×2 (08:43→17:15)
[2024-01-04] MEDS: Sacubitril/Valsartan 49/51 1 TAB TABLET PO ×2 (08:43→23:09)
[2024-01-04] MEDS: Atorvastatin Calcium 80 MG TABLET PO (08:43)
[2024-01-04] MEDS: Empagliflozin 25 MG TABLET PO (08:43)
[2024-01-04] MEDS: Omeprazole 40 MG CAPSULE.DR PO (08:43)
[2024-01-04] MEDS: Aspirin Enteric Coated 81 MG TABLET.DR PO (08:43)
[2024-01-04] MEDS: Gabapentin 300 MG CAPSULE PO ×3 (08:43→23:12)
[2024-01-04] MEDS: Montelukast Sodium 10 MG TABLET PO (08:44)
[2024-01-04] MEDS: Metoprolol Succinate ER 50 MG TAB.ER.24H PO (08:44)
[2024-01-04] MEDS: Sertraline HCL 100 MG TABLET PO (08:44)
[2024-01-04] MEDS: Loratadine 10 MG TABLET PO (08:44)
[2024-01-04] MEDS: Multivitamin TABLET 1 TAB PO (08:44)
[2024-01-04] MEDS: Fluticasone Propionate Nasal 16 GM SPRAY 1 SPRAY NOSTRIL-B (08:49)
--- NOTE | 2024-01-04 08:52 | HO.PM.IMPN ---
Subjective Subjective Date of Service: 01/04/24 Interval History: improved but still some sob and edema Physical Exam Vital Signs: Vital Signs: Last Vital Signs Temp 98.7 F 01/04/24 07:56 Pulse 86 01/04/24 07:56 Resp 18 01/04/24 07:56 BP 140/63 H 01/04/24 08:43 Pulse Ox 94 01/04/24 07:56 O2 Del Method Room Air 01/04/24 07:56 BMI result Body Mass Index 41.0 Const: General: cooperative, comfortable, alert, awake and in distress mild and respiratory Nutritional Appearance: obese Orientation/consciousness: patient oriented x3 Neck: Neck: Yes trachea midline, Yes supple and Yes JVD Resp: Effort & Inspection: labored Auscultation: wheezes throughout Cardio: Jugular venous distension: JVD Rate: regular rate Rhythm: abnormal rhythm with ectopic beats Heart sounds: S1 normal heart sound present, S2 normal heart sound present, no click and no gallops GI: Auscultation: normal bowel sounds Neuro: General: patient oriented x3 and no focal motor deficits Extrem: General: No clubbing, No cyanosis and Yes edema Objective Data Active Medications Acetaminophen (Acetaminophen 325 Mg Tablet) 650 mg PO Q6H PRN PRN Reason: Pain, Mild (Pain Scale 1-3) Last Admin: 01/02/24 16:31 Dose: 650 mg Documented By: ANDRE Albuterol/Ipratropium (Albuterol/Iprat 2.5/0.5mg 3 Ml Ampul.Neb) 3 ml INHALE RQ4H WHILE AWAKE [facility] Last Admin: 01/04/24 07:26 Dose: Not Given Documented By: BINTA Non-Admin Reason: See Note Albuterol/Ipratropium (Albuterol/Iprat 2.5/0.5mg 3 Ml Ampul.Neb) 3 ml INHALE RQ4H WHILE AWAKE PRN PRN Reason: Shortness of Breath/Wheezing Last Admin: 01/03/24 03:49 Dose: 3 ml Documented By: RADHA Aspirin (Aspirin Enteric Coated 81 Mg Tablet.) 81 mg PO DAILY [facility] Last Admin: 01/04/24 08:43 Dose: 81 mg Documented By: LASHON Atorvastatin Calcium (Atorvastatin Calcium 80 Mg Tablet) 80 mg PO DAILY [facility] Last Admin: 01/04/24 08:43 Dose: 80 mg Documented By: LASHON Docusate Sodium (Docusate Sodium 100 Mg Capsule) 100 mg PO DAILY PRN PRN Reason: Constipation Empagliflozin (Empagliflozin 25 Mg Tablet) 25 mg PO DAILY [facility] Last Admin: 01/04/24 08:43 Dose: 25 mg Documented By: LASHON Enoxaparin Sodium (Enoxaparin Sodium 40 Mg/0.4 Ml Syringe) 40 mg SUBCUT Q24H [facility] Last Admin: 01/03/24 17:35 Dose: 40 mg Documented By: LASHON Fluticasone Propionate (Fluticasone Propionate Nasal 16 Gm [place]) 1 spray NOSTRIL-B DAILY [facility] Last Admin: 01/04/24 08:49 Dose: 1 spray Documented By: LASHON Furosemide (Furosemide 40 Mg Tablet) 40 mg PO BID@0900,1800 [facility]; Protocol Last Admin: 01/04/24 08:43 Dose: 40 mg Documented By: LASHON Gabapentin (Gabapentin 300 Mg Capsule) 300 mg PO TID [facility] Last Admin: 01/04/24 08:43 Dose: 300 mg Documented By: LASHON Guaifenesin/Dextromethorphan (Guaifenesin Dm 200/20/10 Ml 10 Ml Syrup) 10 ml PO Q6H PRN PRN Reason: Cough Ceftriaxone Sodium 1 gm/ (Sodium Chloride) 50 mls @ 100 mls/hr IV Q24H [facility] Last Infusion: 01/03/24 15:21 Dose: Infused Documented By: LASHON Azithromycin 500 mg/ Sodium (Chloride) 250 mls @ 125 mls/hr IV Q24H [facility] Last Infusion: 01/03/24 19:35 Dose: Infused Documented By: AVI Levalbuterol HCl (Levalbuterol Hcl 1.25 Mg/3 Ml Vial.Neb) 1.25 mg INHALE Q4H PRN PRN Reason: Wheezing Last Admin: 01/04/24 07:24 Dose: 1.25 mg Documented By: BINTA Loratadine (Loratadine 10 Mg Tablet) 10 mg PO DAILY [facility] Last Admin: 01/04/24 08:44 Dose: 10 mg Documented By: LASHON Melatonin (Melatonin 3 Mg Tablet) 6 mg PO BEDTIME PRN PRN Reason: Insomnia Methylprednisolone Sodium Succinate (Methylprednisolone Sod Succ 40 Mg/Ml Vial) 40 mg IVPUSH Q12H [facility] Last Admin: 01/04/24 04:54 Dose: 40 mg Documented By: TYRONE Metoprolol Succinate (Metoprolol Succinate Er 50 Mg Tab.Er.24h) 50 mg PO DAILY [facility]; Protocol Last Admin: 01/04/24 08:44 Dose: 50 mg Documented By: LASHON Montelukast Sodium (Montelukast Sodium 10 Mg Tablet) 10 mg PO DAILY [facility] Last Admin: 01/04/24 08:44 Dose: 10 mg Documented By: LASHON Multivitamins/Vitamin C (Multivitamin Tablet) 1 tab PO DAILY [facility] Last Admin: 01/04/24 08:44 Dose: 1 tab Documented By: LASHON Nicotine (Nicotine 21 Mg Patch.Td24) 21 mg TRANSDERMA DAILY [facility] Last Admin: 01/04/24 08:42 Dose: 21 mg Documented By: LASHON Omeprazole (Omeprazole 40 Mg Capsule.Dr) 40 mg PO DAILY [facility] Last Admin: 01/04/24 08:43 Dose: 40 mg Documented By: LASHON Ondansetron HCl (Ondansetron Hcl 4 Mg/2 Ml Vial) 4 mg IVPUSH Q8H PRN PRN Reason: Nausea and Vomiting Sacubitril/Valsartan (Sacubitril/Valsartan 49/51 1 Tab Tablet) 1 tab PO BID [facility]; Protocol Last Admin: 01/04/24 08:43 Dose: 1 tab Documented By: LASHON Sertraline HCl (Sertraline Hcl 100 Mg Tablet) 100 mg PO DAILY [facility] Last Admin: 01/04/24 08:44 Dose: 100 mg Documented By: LASHON Sodium Chloride (0.9 % Sodium Chloride Flush 3 Ml Syringe) 3 ml IVFLUSH QSHIFT [facility] Last Admin: 01/04/24 08:42 Dose: 3 ml Documented By: LASHON Labs 01/04/24 06:57 01/04/24 06:57 Labs: Laboratory Results - last 24 hr 01/04/24 06:57 MCV 92.8 MCH 30.7 MCHC 33.1 RDW 14.2 Plt Count 274 MPV 10.5 Absolute Nucleated RBC 0.000 Nucleated RBC % (auto) 0.0 Anion Gap 14 Estim Creat Clear Calc 62.0 Estimated GFR > 60 Random Glucose 167 H Fasting Glucose 167 H Calcium 8.7 Magnesium 2.1 Microbiology Microbiology Results: Microbiology 01/01/24 14:33 Blood Culture - Preliminary Blood - Venous No growth after 48 hours. 01/01/24 14:24 Blood Culture - Preliminary Blood - Venous No growth after 48 hours. Assessment and Plan (1) Acute congestive heart failure: Status: Acute Plan 68F PMH chronic hypoxic respiratory failue on 2L home o2, copd, gaurav not on CPAP, coronary disease, [place] in 2019 status post stenting complicated by ischemic cardiomyopathy and ICD, hypertension, hyperlipidemia presented with shortness of breath Sepsis due to COPD with acute decompensation IV steroids, ceftriaxone azithromycin, DuoNebs Acute on chronic systolic CHF Continue IV Lasix Lisinopril changed to Entresto Continue metoprolol Actos changed to Jardiance follow up cardiology Coronary artery disease Continue aspirin statin Hypertension Continue Entresto, metoprolol Mood disorder Sertraline DVT prophylaxis with Lovenox Full Code reason for continued hospitalization: Ongoing IV diuresis Quality Stroke Does the patient have a stroke diagnosis?: No VTE Prior VTE?: No VTE Risk Level:: Medical - moderate - high VTE Device Contraindication: Treatment Not Indicated VTE Drug Contraindication: N/A - Med Ordered
[2024-01-04] MEDS: Potassium Chloride ER 20 MEQ TAB.ER.PRT 40 MEQ PO (09:18)
--- NOTE | 2024-01-04 11:15 | PM.PNCARD ---
Subjective Subjective Date of Service: 01/04/24 Principal diagnosis: CHF, COPD exac Interval history: Patient says she feels hold out better. Wheezing is improved. Overall shortness of breath is improved. Hemodynamically stable. No significant arrhythmias noted. Tolerating her medications. Review of Systems Constitutional: Reports no additional constitutional complaints Cardiovascular: Denies chest pain, Reports leg edema (Improving) and Reports dyspnea on exertion (Improving) Respiratory: Reports dyspnea on exertion (Improving) and Reports wheezing (Improving) Allergic/Immunologic: Reports wheezing (Improving) Physical Exam Vital Signs: Last Vital Signs Temp 98.7 F 01/04/24 07:56 Pulse 86 01/04/24 07:56 Resp 18 01/04/24 07:56 BP 140/63 H 01/04/24 08:43 Pulse Ox 94 01/04/24 07:56 O2 Del Method Room Air 01/04/24 07:56 BMI result Body Mass Index 41.0 Const General: cooperative, comfortable, alert, awake and in distress mild and respiratory Nutritional Appearance: obese Orientation/consciousness: patient oriented x3 Neck Neck: Yes trachea midline, Yes supple and Yes JVD Resp Effort & Inspection: labored Auscultation: wheezes throughout Cardio Jugular venous distension: JVD Rate: regular rate Rhythm: abnormal rhythm with ectopic beats Heart sounds: S1 normal heart sound present, S2 normal heart sound present, no click and no gallops GI Auscultation: normal bowel sounds Neuro General: patient oriented x3 and no focal motor deficits Extrem General: No clubbing, No cyanosis and Yes edema Objective Labs and Meds 01/04/24 06:57 01/04/24 06:57 Lab results: Laboratory Results - last 24 hr 01/04/24 06:57 WBC 10.9 H RBC 4.30 Hgb 13.2 Hct 39.9 MCV 92.8 MCH 30.7 MCHC 33.1 RDW 14.2 Plt Count 274 MPV 10.5 Absolute Nucleated RBC 0.000 Nucleated RBC % (auto) 0.0 Sodium 137 Potassium 3.5 Chloride 98 Carbon Dioxide 29 Anion Gap 14 BUN 19 H Creatinine 0.92 Estim Creat Clear Calc 62.0 Estimated GFR > 60 Random Glucose 167 H Fasting Glucose 167 H Calcium 8.7 Magnesium 2.1 Progress Note: A&P Assessment and plan (1) Acute congestive heart failure: Status: Acute Assessment and Plan: Acute congestive heart failure improving and has been doing well. Continue IV diuresis. Strict intake and output chart needs to be pursued. Continue to trend renal function and electrolytes as well as BNP tomorrow. Add Aldactone to her regimen. Continue Jardiance as well as Entresto therapy as well as metoprolol therapy for neurohormonal modulation. Continue optimization of her pulmonary function. Discussed with her that she needs to be continued to be in the hospital. Strongly encouraged smoking cessation. Will follow up with you. Time Spent With Patient Time: Total time managing care of this patient today ____ minutes. Progress Note: Quality Stroke Does the patient have a stroke diagnosis?: No Procedures Date of Service Date of Service: 01/04/24
--- NOTE | 2024-01-04 13:27 | PC.NURSE ---
patient is alert and orientated to person, place, and time. 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 Nurse checked on patient, patient denied SOB, chest pain, dizziness, nausea. Notified provided at 13:08 patient condition and asymptomatic to change in heart rate. Dr Becker notified of run of V-tech @ 13:08. No changes made to patient at this time.
[2024-01-04] MEDS: cefTRIAXone sodium 1 GM in 0.9 % Sodium Chloride 50 ML IV (13:50)
[2024-01-04] MEDS: Azithromycin 500 MG in 0.9 % Sodium Chloride 250 ML 125 MG IV (16:52)
[2024-01-04] MEDS: Enoxaparin Sodium 40 MG/0.4 ML SYRINGE SUBCUT (17:15)
[2024-01-04] MEDS: Acetaminophen 325 MG TABLET 650 MG PO (17:20)
[2024-01-04] MEDS: Docusate Sodium 100 MG CAPSULE PO (23:16)
[2024-01-05] VITALS (9 sets, daily range): BP systolic 105–136; BP diastolic 54–72; PULSE 50–80; RESP 15–20; TEMP 35.9–36.1; O2SAT 93–100
[2024-01-05] MEDS: methylPREDNISolone Sod Succ 40 MG/ML VIAL IVPUSH ×2 (05:13→15:39)
[2024-01-05] MEDS: Acetaminophen 325 MG TABLET 650 MG PO ×2 (05:16→20:59)
[2024-01-05 07:08] LABS: Hematocrit 45.7 % (37.0-47.0); Hemoglobin 14.8 g/dl (12.0-16.0); Mean Corpuscular HGB Conc 32.4 g/dl (31.0-35.0); Mean Corpuscular Volume 92.7 fL (80.0-98.0); Mean Platelet Volume 10.4 fL (9.4-12.3); Platelet Count 325 X10*3/uL (160-400); Red Blood Count 4.93 X10*6/uL (4.20-5.50); Red Cell Distribution Width 14.3 % (11.0-16.0)
[2024-01-05] MEDS: Albuterol/Iprat 2.5/0.5MG 3 ML AMPUL.NEB INHALE ×4 (07:29→19:50)
[2024-01-05 07:30] LABS: Anion Gap 16 (12-20); Blood Urea Nitrogen 22 mg/dL (9-16); Carbon Dioxide 27 mmol/L (22-29); Chloride 98 mmol/L (96-108); Creatinine Clr Calc Pharmacy 59.4; Estimated Glomerular Filt Rate 58; Glucose Fasting 145 mg/dL (60-99); Magnesium 2.2 mg/dL (1.6-2.6); Potassium 3.5 mmol/L (3.3-5.1); Sodium 137 mmol/L (135-145)
[2024-01-05] MEDS: Omeprazole 40 MG CAPSULE.DR PO (08:37)
[2024-01-05] MEDS: Multivitamin TABLET 1 TAB PO (08:37)
[2024-01-05] MEDS: Furosemide 40 MG TABLET PO ×2 (08:37→18:29)
[2024-01-05] MEDS: Atorvastatin Calcium 80 MG TABLET PO (08:37)
[2024-01-05] MEDS: Spironolactone 25 MG TABLET 12.5 MG PO (08:37)
[2024-01-05] MEDS: Sacubitril/Valsartan 49/51 1 TAB TABLET PO ×2 (08:37→21:00)
[2024-01-05] MEDS: Sertraline HCL 100 MG TABLET PO (08:38)
[2024-01-05] MEDS: Gabapentin 300 MG CAPSULE PO ×3 (08:38→21:00)
[2024-01-05] MEDS: Metoprolol Succinate ER 50 MG TAB.ER.24H PO (08:38)
[2024-01-05] MEDS: Empagliflozin 25 MG TABLET PO (08:38)
[2024-01-05] MEDS: Aspirin Enteric Coated 81 MG TABLET.DR PO (08:38)
[2024-01-05] MEDS: Montelukast Sodium 10 MG TABLET PO (08:38)
[2024-01-05] MEDS: Loratadine 10 MG TABLET PO (08:38)
[2024-01-05] MEDS: Nicotine 21 MG PATCH.TD24 TRANSDERMA (08:39)
[2024-01-05] MEDS: 0.9 % Sodium Chloride Flush 3 ML SYRINGE IVFLUSH ×3 (08:45→21:02)
[2024-01-05] MEDS: Fluticasone Propionate Nasal 16 GM SPRAY 1 SPRAY NOSTRIL-B (08:46)
--- NOTE | 2024-01-05 09:19 | PM.PNCARD ---
Subjective Subjective Date of Service: 01/05/24 Principal diagnosis: CHF, COPD exac Interval history: Patient states she is getting better. However, she still looks somewhat short of breath. Review of Systems Review of Systems Yes all other systems are reviewed and are negative Constitutional: Reports as per HPI and Reports no additional constitutional complaints Eyes: Reports as per HPI and Denies no additional eye complaints Denies system reviewed and no additional complaints, except as documented and Reports as per HPI Cardiovascular: Reports as per HPI, Reports no additional cardiovascular complaints, Denies acrocyanosis, Denies cool extremities, Denies chest pain, Denies leg edema, Denies lightheadedness, Denies palpitations and Reports dyspnea Respiratory: Reports as per HPI, Denies no additional respiratory complaints and Reports dyspnea Gastrointestinal: Reports as per HPI and Denies no additional gastrointestinal complaints Genitourinary: Reports as per HPI Musculoskeletal: Reports no additional musculoskeletal complaints and Reports as per HPI Skin/Breast: Reports system reviewed and no additional complaints, except as docu Reports system reviewed and no additional complaints, except as documented and Reports as per HPI Psychiatric: Reports no additional psychiatric complaints and Reports as per HPI Endocrine: Reports no additional endocrine complaints, Reports as per HPI and Denies palpitations Hematologic/Lymphatic: Reports no additional hematologic/lymphatic complaints and Reports as per HPI Allergic/Immunologic: Reports no additional allergic/immunologic complaints and Reports as per HPI Physical Exam Vital Signs: Last Vital Signs Temp 97 F 01/05/24 07:15 Pulse 65 01/05/24 07:29 Resp 18 01/05/24 07:29 BP 119/72 01/05/24 07:15 Pulse Ox 95 01/05/24 07:15 O2 Del Method Room Air 01/05/24 07:15 BMI result Body Mass Index 41.0 Const General: comfortable and no acute distress Orientation/consciousness: patient oriented x3 HEENT Other: Unremarkable Head: Yes normal to inspection Neck Neck: Yes normal visual inspection Chest Chest palpation & inspection: normal inspection of the chest Resp Auscultation: wheezes and diminished lung sounds Cardio Palpation: normal PMI Heart sounds: S1 normal heart sound present, S2 normal heart sound present, no gallops, no murmurs and no rubs GI Palpation (GI): Soft to palpation Back/Spine/Pelvis Other: unremarkable Skin General skin exam: no rashes or lesions noted Neuro General: patient oriented x3 Extrem Other: 1+ edema, L>R General: Yes normal to inspection Psych Mental Status: mental status grossly normal Objective Labs and Meds 01/05/24 06:28 01/05/24 06:28 Lab results: Laboratory Results - last 24 hr 01/05/24 06:28 WBC 12.0 H RBC 4.93 Hgb 14.8 Hct 45.7 MCV 92.7 MCH 30.0 MCHC 32.4 RDW 14.3 Plt Count 325 MPV 10.4 Absolute Nucleated RBC 0.000 Nucleated RBC % (auto) 0.0 Sodium 137 Potassium 3.5 Chloride 98 Carbon Dioxide 27 Anion Gap 16 BUN 22 H Creatinine 0.96 Estim Creat Clear Calc 59.4 Estimated GFR 58 Fasting Glucose 145 H Calcium 9.0 Magnesium 2.2 Progress Note: A&P Assessment and plan (1) Acute on chronic systolic and diastolic heart failure, NYHA class 3: Status: Acute (2) COPD with exacerbation: Status: Acute (3) Acute hypoxemic respiratory failure: Status: Acute Plan Clinically, she sounds wheezy. Mild leg swelling but she states left side is chronic. In the echocardiogram, LVEF is 25-30% with moderate diastolic dysfunction as well as wall motion abnormalities. Moderate aortic stenosis. Moderate pulmonary hypertension with elevated right heart pressures. Chest x-ray reported to have left lower lobe atelectasis/pneumonia. Mild cardiomegaly. Overall, suspected combination of CHF as well as COPD exacerbation. Currently possibly more towards COPD. For meds, remains on a combination of diuretics, beta-blockers, Entresto, Jardiance, spironolactone and that seems to be reasonable regimen. Treat COPD concurrently. Time Spent With Patient Time: Total time managing care of this patient today ____ minutes. Progress Note: Quality Stroke Does the patient have a stroke diagnosis?: No Procedures Date of Service Date of Service: 01/05/24
--- NOTE | 2024-01-05 09:38 | HO.PM.IMPN ---
Subjective Subjective Date of Service: 01/05/24 Interval History: improved but still some sob and edema Physical Exam Vital Signs: Vital Signs: Last Vital Signs Temp 97 F 01/05/24 07:15 Pulse 65 01/05/24 07:29 Resp 18 01/05/24 07:29 BP 119/72 01/05/24 07:15 Pulse Ox 95 01/05/24 07:15 O2 Del Method Room Air 01/05/24 07:15 BMI result Body Mass Index 41.0 Const: General: comfortable and no acute distress Orientation/consciousness: patient oriented x3 HEENT: Other: Unremarkable Head: Yes normal to inspection Neck: Neck: Yes normal visual inspection Chest: Chest palpation & inspection: normal inspection of the chest Resp: Auscultation: wheezes and diminished lung sounds Cardio: Palpation: normal PMI Heart sounds: S1 normal heart sound present, S2 normal heart sound present, no gallops, no murmurs and no rubs GI: Palpation (GI): Soft to palpation Back/Spine/Pelvis: Other: unremarkable Skin: General skin exam: no rashes or lesions noted Neuro: General: patient oriented x3 Extrem: Other: 1+ edema, L>R General: Yes normal to inspection Psych: Mental Status: mental status grossly normal Objective Data Active Medications Acetaminophen (Acetaminophen 325 Mg Tablet) 650 mg PO Q6H PRN PRN Reason: Pain, Mild (Pain Scale 1-3) Last Admin: 01/05/24 05:16 Dose: 650 mg Documented By: ALISHA Albuterol/Ipratropium (Albuterol/Iprat 2.5/0.5mg 3 Ml Ampul.Neb) 3 ml INHALE RQ4H WHILE AWAKE [facility] Last Admin: 01/05/24 07:29 Dose: 3 ml Documented By: SUN Albuterol/Ipratropium (Albuterol/Iprat 2.5/0.5mg 3 Ml Ampul.Neb) 3 ml INHALE RQ4H WHILE AWAKE PRN PRN Reason: Shortness of Breath/Wheezing Last Admin: 01/03/24 03:49 Dose: 3 ml Documented By: RADHA Aspirin (Aspirin Enteric Coated 81 Mg Tablet.) 81 mg PO DAILY [facility] Last Admin: 01/05/24 08:38 Dose: 81 mg Documented By: OSCAR Atorvastatin Calcium (Atorvastatin Calcium 80 Mg Tablet) 80 mg PO DAILY [facility] Last Admin: 01/05/24 08:37 Dose: 80 mg Documented By: OSCAR Docusate Sodium (Docusate Sodium 100 Mg Capsule) 100 mg PO DAILY PRN PRN Reason: Constipation Last Admin: 01/04/24 23:16 Dose: 100 mg Documented By: ALISHA Empagliflozin (Empagliflozin 25 Mg Tablet) 25 mg PO DAILY [facility] Last Admin: 01/05/24 08:38 Dose: 25 mg Documented By: OSCAR Enoxaparin Sodium (Enoxaparin Sodium 40 Mg/0.4 Ml Syringe) 40 mg SUBCUT Q24H [facility] Last Admin: 01/04/24 17:15 Dose: 40 mg Documented By: LASHON Fluticasone Propionate (Fluticasone Propionate Nasal 16 Gm [place]) 1 spray NOSTRIL-B DAILY [facility] Last Admin: 01/05/24 08:46 Dose: 1 spray Documented By: OSCAR Furosemide (Furosemide 40 Mg Tablet) 40 mg PO BID@0900,1800 [facility]; Protocol Last Admin: 01/05/24 08:37 Dose: 40 mg Documented By: OSCAR Gabapentin (Gabapentin 300 Mg Capsule) 300 mg PO TID [facility] Last Admin: 01/05/24 08:38 Dose: 300 mg Documented By: OSCAR Guaifenesin/Dextromethorphan (Guaifenesin Dm 200/20/10 Ml 10 Ml Syrup) 10 ml PO Q6H PRN PRN Reason: Cough Ceftriaxone Sodium 1 gm/ (Sodium Chloride) 50 mls @ 100 mls/hr IV Q24H [facility] Last Infusion: 01/04/24 14:49 Dose: Infused Documented By: LASHON Azithromycin 500 mg/ Sodium (Chloride) 250 mls @ 125 mls/hr IV Q24H [facility] Last Infusion: 01/04/24 18:55 Dose: Infused Documented By: ALISHA Levalbuterol HCl (Levalbuterol Hcl 1.25 Mg/3 Ml Vial.Neb) 1.25 mg INHALE Q4H PRN PRN Reason: Wheezing Last Admin: 01/04/24 19:38 Dose: 1.25 mg Documented By: LADARIUS Loratadine (Loratadine 10 Mg Tablet) 10 mg PO DAILY [facility] Last Admin: 01/05/24 08:38 Dose: 10 mg Documented By: OSCAR Melatonin (Melatonin 3 Mg Tablet) 6 mg PO BEDTIME PRN PRN Reason: Insomnia Methylprednisolone Sodium Succinate (Methylprednisolone Sod Succ 40 Mg/Ml Vial) 40 mg IVPUSH Q12H [facility] Last Admin: 01/05/24 05:13 Dose: 40 mg Documented By: ALISHA Metoprolol Succinate (Metoprolol Succinate Er 50 Mg Tab.Er.24h) 50 mg PO DAILY [facility]; Protocol Last Admin: 01/05/24 08:38 Dose: 50 mg Documented By: OSCAR Montelukast Sodium (Montelukast Sodium 10 Mg Tablet) 10 mg PO DAILY [facility] Last Admin: 01/05/24 08:38 Dose: 10 mg Documented By: OSCAR Multivitamins/Vitamin C (Multivitamin Tablet) 1 tab PO DAILY [facility] Last Admin: 01/05/24 08:37 Dose: 1 tab Documented By: OSCAR Nicotine (Nicotine 21 Mg Patch.Td24) 21 mg TRANSDERMA DAILY [facility] Last Admin: 01/05/24 08:39 Dose: 21 mg Documented By: OSCAR Omeprazole (Omeprazole 40 Mg Capsule.Dr) 40 mg PO DAILY [facility] Last Admin: 01/05/24 08:37 Dose: 40 mg Documented By: OSCAR Ondansetron HCl (Ondansetron Hcl 4 Mg/2 Ml Vial) 4 mg IVPUSH Q8H PRN PRN Reason: Nausea and Vomiting Sacubitril/Valsartan (Sacubitril/Valsartan 49/51 1 Tab Tablet) 1 tab PO BID [facility]; Protocol Last Admin: 01/05/24 08:37 Dose: 1 tab Documented By: OSCAR Sertraline HCl (Sertraline Hcl 100 Mg Tablet) 100 mg PO DAILY [facility] Last Admin: 01/05/24 08:38 Dose: 100 mg Documented By: OSCAR Sodium Chloride (0.9 % Sodium Chloride Flush 3 Ml Syringe) 3 ml IVFLUSH QSHIFT [facility] Last Admin: 01/05/24 08:45 Dose: 3 ml Documented By: OSCAR Spironolactone (Spironolactone 25 Mg Tablet) 12.5 mg PO DAILY [facility]; Protocol Last Admin: 01/05/24 08:37 Dose: 12.5 mg Documented By: OSCAR Labs 01/05/24 06:28 01/05/24 06:28 Labs: Laboratory Results - last 24 hr 01/05/24 06:28 MCV 92.7 MCH 30.0 MCHC 32.4 RDW 14.3 Plt Count 325 MPV 10.4 Absolute Nucleated RBC 0.000 Nucleated RBC % (auto) 0.0 Anion Gap 16 Estim Creat Clear Calc 59.4 Estimated GFR 58 Fasting Glucose 145 H Calcium 9.0 Magnesium 2.2 Assessment and Plan (1) Acute congestive heart failure: Status: Acute Plan 68F PMH chronic hypoxic respiratory failue on 2L home o2, copd, gaurav not on CPAP, coronary disease, [place] in 2019 status post stenting complicated by ischemic cardiomyopathy and ICD, hypertension, hyperlipidemia presented with shortness of breath Sepsis due to COPD with acute decompensation IV steroids, ceftriaxone azithromycin, DuoNebs Acute on chronic systolic CHF Continue IV Lasix Lisinopril changed to Entresto Continue metoprolol Actos changed to Jardiance Coronary artery disease Continue aspirin statin Hypertension Continue Entresto, metoprolol Mood disorder Sertraline DVT prophylaxis with Lovenox Full Code reason for continued hospitalization: Ongoing IV diuresis., still sob and wheezy Quality Stroke Does the patient have a stroke diagnosis?: No VTE Prior VTE?: No VTE Risk Level:: Medical - moderate - high VTE Device Contraindication: Treatment Not Indicated VTE Drug Contraindication: N/A - Med Ordered
--- NOTE | 2024-01-05 09:45 | P.CDIM_ITS ---
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 Please review below and update the documentation accordingly. Clinical Indicators: Height: 5ft 1in Weight: 98.5kg BMI: 41.0 Other Clinical Notes Supporting Significance of the BMI: Nursing notes Height and Weight: Extreme obe sity class III with BMI 41.0 If possible, please provide an associated diagnosis related to the abnormal BMI, such as: Obesity Due to excess calories Severe or Morbid Obesity With alveolar hypoventilation Severe or Morbid Obesity Without alveolar hypoventilation Other (explain) Clinically unable to determine (explain) Thank you, Roxie Nascimento, CCS, CDIS Use of terms such as suspected, likely, concern for, or probable (associated with a specific diagnosi s that is being evaluated, monitored, or treated as if it exists) are acceptable and can be coded in the inpatient se tting, when documented at the time of discharge. Please use your independent medical judgment in providing your response. THIS QUERY IS PART OF THE PERMANENT MEDICAL RECORD
--- NOTE | 2024-01-05 10:24 | MHC.CM.PN ---
Per ROUNDS discussion, Patient is not yet medically cleared for dc (still SOB & Edema, IV ABT X2, IV Solu Medrol); home/resume home O2 and ? new VNA is the tentative plan and CM will continue to follow.
[2024-01-05] MEDS: cefTRIAXone sodium 1 GM in 0.9 % Sodium Chloride 50 ML IV (14:12)
[2024-01-05] MEDS: Azithromycin 500 MG in 0.9 % Sodium Chloride 250 ML 125 MG IV (18:29)
[2024-01-05] MEDS: Enoxaparin Sodium 40 MG/0.4 ML SYRINGE SUBCUT (18:31)
--- NOTE | 2024-01-05 23:40 | PC.RT ---
pt refusing CPAP
[2024-01-06] VITALS: BP 125/72; PULSE 75; RESP 16; TEMP 36; O2SAT 92
[2024-01-06 04:00] VITALS: BP 117/63; PULSE 79; RESP 16; TEMP 36.6; O2SAT 93
[2024-01-06] MEDS: methylPREDNISolone Sod Succ 40 MG/ML VIAL IVPUSH (04:00)
[2024-01-06 07:23] VITALS: BP 138/82; PULSE 87; RESP 17; TEMP 36.3; O2SAT 92
[2024-01-06] MEDS: Albuterol/Iprat 2.5/0.5MG 3 ML AMPUL.NEB INHALE (07:27)
[2024-01-06 07:28] VITALS: PULSE 112; RESP 22; O2SAT 96
[2024-01-06] MEDS: Omeprazole 40 MG CAPSULE.DR PO (08:28)
[2024-01-06] MEDS: Sacubitril/Valsartan 49/51 1 TAB TABLET PO (08:28)
[2024-01-06] MEDS: Metoprolol Succinate ER 50 MG TAB.ER.24H PO (08:28)
[2024-01-06] MEDS: Furosemide 40 MG TABLET PO (08:28)
[2024-01-06] MEDS: Montelukast Sodium 10 MG TABLET PO (08:28)
[2024-01-06] MEDS: Gabapentin 300 MG CAPSULE PO (08:29)
[2024-01-06] MEDS: Atorvastatin Calcium 80 MG TABLET PO (08:29)
[2024-01-06] MEDS: Sertraline HCL 100 MG TABLET PO (08:29)
[2024-01-06] MEDS: Loratadine 10 MG TABLET PO (08:29)
[2024-01-06] MEDS: Aspirin Enteric Coated 81 MG TABLET.DR PO (08:29)
[2024-01-06] MEDS: Multivitamin TABLET 1 TAB PO (08:29)
[2024-01-06] MEDS: Spironolactone 25 MG TABLET 12.5 MG PO (08:30)
[2024-01-06] MEDS: Empagliflozin 25 MG TABLET PO (08:30)
[2024-01-06] MEDS: 0.9 % Sodium Chloride Flush 3 ML SYRINGE IVFLUSH (08:32)
[2024-01-06] MEDS: Nicotine 21 MG PATCH.TD24 TRANSDERMA (08:32)
[2024-01-06] MEDS: Fluticasone Propionate Nasal 16 GM SPRAY 1 SPRAY NOSTRIL-B (09:42)
[2024-01-06] MEDS: Acetaminophen 325 MG TABLET 650 MG PO (09:43)
--- NOTE | 2024-01-06 09:47 | PM.DS ---
DS: Providers Provider Date of Service: 01/06/24 Date of admission: 01/01/24 17:43 Primary care physician: Araseli Calvo MD Consults: 01/01/24 17:48 Consult to Cardiology Routine Consulting Provider: [facility] [place] [facility] Reason for consultation: BNP 1129, ?new onset CHF DS: Diagnosis Discharge Diagnosis (1) Acute congestive heart failure: Status: Acute DS: Summary Hospital Course Hospital Course: from initial hpi: 68-year-old female with a PMH significant for?asthma/COPD overlap chronically on 2 L home O2, BLAKE not on CPAP, CAD, SD in 2019 s/p stenting and ICD in place, HTN, HLD, and current 1-pack daily smoker who presents to the ED with worsening?SOB, DARBY, and difficulty breathing for the past couple of days. Patient notes she gets out of breath just walking from living room to the bathroom. Has had constant cough that has been only occasionally productive of whitish sputum. Denies fever, chills. Has noticed worsening lower leg edema. Reports no known history of heart failure. Denies orthopnea. No chest pain/pressure or palpitations. Denies nausea, vomiting, diarrhea, abdominal pain. Of note, patient currently smokes 1 pack daily and reports no interest in quitting. States she has had up to 9 family members who almost immediately after quitting smoking. Patient initially arrived to the ED in respiratory distress and placed on rescue CPAP to good effect. In the ED, she was tachycardic up to 1 4, tachypneic up to 35, satting as low as 91% on RA. Labs were significant for lactic acid 2.3, troponin 32.6, and BNP 1129. No leukocytosis. Stable H&H. No significant electrolyte abnormalities. Renal and hepatic function WNL. Tested negative for COVID, flu, RSV. CXR showed left lower lobe atelectasis and/or pneumonia, with mild cardiomegaly but no pleural effusion or pneumothorax. EKG demonstrated sinus tachycardia with PVCs. Pt was treated with DuoNebs, Solu-Medrol, furosemide, ceftriaxone, and Mag sulfate. Pt will be admitted to the hospital for treatment and further evaluation of acute COPD exacerbation with sepsis and likely new onset CHF. hospital course: Patient was admitted for sepsis due to COPD with acute decompensation. She was treated with IV steroids, ceftriaxone azithromycin, DuoNebs, her shortness of breath improved and will be discharged on 5 more days of prednisone. Also complicated by acute on chronic systolic CHF, was treated with IV Lasix, her lisinopril was changed to Entresto, she was continued on metoprolol, her Actos was changed to Jardiance. Patient diuresed well and shortness of breath improved. Coronary disease was continued on aspirin statin. For hypertension was continued on Entresto and metoprolol. For mood disorder was continued on sertraline. Patient is feeling better will be discharged home. Time Attestation Discharge Coordination Time (in mins): 32 Quality: Safe Use of Opioids Does Pt have an Active Cancer Diagnosis on the Problem List?: No Quality: Stroke Does the patient have a stroke diagnosis?: No Physical Exam Vital Signs: Vital Signs: Last Vital Signs Temp 97.3 F 01/06/24 07:23 Pulse 112 H 01/06/24 07:28 Resp 22 H 01/06/24 07:28 BP 138/82 01/06/24 07:23 Pulse Ox 96 01/06/24 07:28 O2 Del Method Room Air 01/06/24 07:23 BMI result Body Mass Index 41.0 General: AO X 3, no acute distress Resp: mild wheeze bilateral, no accessory muscles used CVS: S1,S2,RRR GI: soft, non tender, non distended Neuro: motor grossly intact, alert Psych: appropriate affect, appropriate insight DS: Data Data Completed and Pending Labs on day of discharge: Preliminary micro results at discharge 01/01/24 14:33 Blood Culture - Preliminary Blood - Venous No growth after 48 hours. 01/01/24 14:24 Blood Culture - Preliminary Blood - Venous No growth after 48 hours. Discharge Plan Discharge Anticipated Discharge Date/Time: 01/06/24 09:44 Patient Disposition: Home, Self-Care Discharge Diagnosis: copd, chf Referrals: Araseli Calvo MD [Primary Care Provider] - 1 Week Discharge Medications: New Entresto 49-51 mg Tablet 1 tab PO BID Qty: 180 0RF Protocol: Hold for SBP< HOLD for SBP < : 90 spironolactone 25 mg Tablet 12.5 mg PO DAILY Qty: 90 0RF Protocol: Hold for SBP< HOLD for SBP < : 90 Jardiance 25 mg Tablet 25 mg PO DAILY Qty: 90 0RF prednisone 20 mg tablet 40 mg PO DAILY Qty: 10 0RF Continued omeprazole 40 mg capsule,delayed release(DR/EC) 40 mg PO DAILY Qty: 100 2RF fluticasone propionate [Allergy Relief (fluticasone)] 50 mcg/actuation spray,suspension 1 spray intranasal DAILY 90 Days Qty: 3 3RF Rx Instructions: administer into each nostril azithromycin 500 mg tablet 500 mg PO MOWEFR@0900 Rx Instructions: Friday, Friday, Friday multivitamin Tablet 1 tab PO DAILY acetaminophen 500 mg Tablet 1,000 mg PO TID loratadine 10 mg tablet 10 mg PO DAILY sertraline 100 mg tablet 100 mg PO DAILY aspirin 81 mg tablet,delayed release (DR/EC) 81 mg PO DAILY metoprolol succinate 50 mg tablet extended release 24 hr 50 mg PO DAILY furosemide 20 mg tablet 20 mg PO BID albuterol sulfate 90 mcg/actuation HFA aerosol inhaler 2 puff PO Q6H PRN (Reason: for wheezing) 90 Days Qty: 34 3RF ipratropium-albuterol 0.5 mg-3 mg(2.5 mg base)/3 mL solution for nebulization 3 ml inhalation QID Qty: 1260 3RF montelukast 10 mg tablet 10 mg PO DAILY gabapentin 300 mg capsule 300 mg PO TID atorvastatin 80 mg tablet 80 mg PO DAILY (DME) nebulizers Misc See Rx Instructions .ROUTE Rx Instructions: As directed Discontinued lisinopril 5 mg tablet 5 mg PO DAILY pioglitazone 30 mg tablet 30 mg PO DAILY prednisone 10 mg tablet 30 mg PO DAILY 30 Days Qty: 90 3RF Discharge Orders: Discharge Order (Routine); Ordered 01/06/24 Ordered By: Ankur Becker Diet: Advance to usual diet Activity on Discharge: As tolerated Stand Alone Forms: Patient Portal Discharge page Print Language: [place]i Care Plan Goals: recovery Health Concerns: copd, chf Plan of Treatment: med changes as prescribed prednisone 5 more days Assessment: see above
--- NOTE | 2024-01-06 10:17 | MHC.CM.PN ---
Patient has been medically cleared for dc to home today, self care. CM met with Patient and her Daughter at bedside and addressed IMM with them; original was given to Patient and a copy has been placed on the chart.
--- NOTE | 2024-01-06 10:27 | PM.PNCARD ---
Subjective Subjective Date of Service: 01/06/24 Principal diagnosis: CHF, COPD exac Interval history: She states that she is feeling okay. Shortness of breath is improved. Asking if she can go home. Review of Systems Review of Systems Yes all other systems are reviewed and are negative Constitutional: Reports as per HPI and Reports no additional constitutional complaints Eyes: Reports as per HPI and Denies no additional eye complaints Denies system reviewed and no additional complaints, except as documented and Reports as per HPI Cardiovascular: Reports as per HPI, Reports no additional cardiovascular complaints, Denies acrocyanosis, Denies cool extremities, Denies chest pain, Denies leg edema, Denies lightheadedness, Denies palpitations and Denies dyspnea Respiratory: Reports as per HPI, Denies no additional respiratory complaints and Denies dyspnea Gastrointestinal: Reports as per HPI and Denies no additional gastrointestinal complaints Genitourinary: Reports as per HPI Musculoskeletal: Reports no additional musculoskeletal complaints and Reports as per HPI Skin/Breast: Reports system reviewed and no additional complaints, except as docu Reports system reviewed and no additional complaints, except as documented and Reports as per HPI Psychiatric: Reports no additional psychiatric complaints and Reports as per HPI Endocrine: Reports no additional endocrine complaints, Reports as per HPI and Denies palpitations Hematologic/Lymphatic: Reports no additional hematologic/lymphatic complaints and Reports as per HPI Allergic/Immunologic: Reports no additional allergic/immunologic complaints and Reports as per HPI Physical Exam Vital Signs: Last Vital Signs Temp 97.3 F 01/06/24 07:23 Pulse 112 H 01/06/24 07:28 Resp 22 H 01/06/24 07:28 BP 138/82 01/06/24 07:23 Pulse Ox 96 01/06/24 07:28 O2 Del Method Room Air 01/06/24 07:23 BMI result Body Mass Index 41.0 Const General: comfortable and no acute distress Orientation/consciousness: patient oriented x3 HEENT Other: Unremarkable Head: Yes normal to inspection Neck Neck: Yes normal visual inspection Chest Chest palpation & inspection: normal inspection of the chest Resp Other: Wheezing improved from yesterday Auscultation: diminished lung sounds Cardio Palpation: normal PMI Heart sounds: S1 normal heart sound present, S2 normal heart sound present, no gallops, no murmurs and no rubs GI Palpation (GI): Soft to palpation Back/Spine/Pelvis Other: unremarkable Skin General skin exam: no rashes or lesions noted Neuro General: patient oriented x3 Extrem Other: 1+ edema, L>R General: Yes normal to inspection Psych Mental Status: mental status grossly normal Objective Labs and Meds 01/05/24 06:28 01/05/24 06:28 Progress Note: A&P Assessment and plan (1) Acute on chronic systolic and diastolic heart failure, NYHA class 3: Status: Acute (2) COPD with exacerbation: Status: Acute (3) Acute hypoxemic respiratory failure: Status: Acute Plan Overall, wheezing seems improved. Mild leg swelling but she states left side is chronic. In the echocardiogram, LVEF is 25-30% with moderate diastolic dysfunction as well as wall motion abnormalities. Moderate aortic stenosis. Moderate pulmonary hypertension with elevated right heart pressures. Chest x-ray reported to have left lower lobe atelectasis/pneumonia. Mild cardiomegaly. Overall, suspected combination of CHF as well as COPD exacerbation. Currently possibly more towards COPD. For meds, remains on a combination of diuretics, beta-blockers, Entresto, Jardiance, spironolactone and that seems to be reasonable regimen. Also COPD being treated concurrently. We can ambulate her and see how she does. Post discharge, follow-up with her own fractionating still operator. Time Spent With Patient Time: Total time managing care of this patient today ____ minutes. Progress Note: Quality Stroke Does the patient have a stroke diagnosis?: No Procedures Date of Service Date of Service: 01/06/24
== END 2024-01-06 11:00 | disposition home or self-care (01) | DRG 194 ==
LOC: HO.ED 15:32 → HO.EDOVER 17:54 → HO.IMC 19:51
PROVIDERS: Physician Assistant; Physician Assistant Medical; Admitting Provider Student in an Organized Health Care Education/Training Program; Emergency Provider Student in an Organized Health Care Education/Training Program; PCP Internal Medicine; Visit Provider Internal Medicine
DX: J18.9 Pneumonia, unspecified organism (principal); J44.0 Chronic obstructive pulmonary disease with (acute) lower respiratory infection; J44.1 Chronic obstructive pulmonary disease with (acute) exacerbation; Z68.41 Body mass index [BMI] 40.0-44.9, adult; J98.11 Atelectasis; Z99.81 Dependence on supplemental oxygen; I25.5 Ischemic cardiomyopathy; I25.10 Atherosclerotic heart disease of native coronary artery without angina pectoris; F39 Unspecified mood [affective] disorder; Z95.5 Presence of coronary angioplasty implant and graft; E78.5 Hyperlipidemia, unspecified; I10 Essential (primary) hypertension; I25.2 Old myocardial infarction; E66.01 Morbid (severe) obesity due to excess calories; G47.33 Obstructive sleep apnea (adult) (pediatric); F17.210 Nicotine dependence, cigarettes, uncomplicated; Z20.822 Contact with and (suspected) exposure to COVID-19; Z71.6 Tobacco abuse counseling; Z79.82 Long term (current) use of aspirin; Z79.51 Long term (current) use of inhaled steroids; Z79.899 Other long term (current) drug therapy
CPT/HCPCS: 0241U; 36415; 71045; 80048; 80053; 83605; 83690; 83735; 83880; 84484; 85025; 85027; 85610; 87040; 93005; 93306; 94640; 99285; J0456; J0696; J1650; J1940; J2919; J3475; Q9957

== ENCOUNTER 2024-01-01 17:43 | Outpatient (BNV) | payer MEDICARE, SELFPAY | END 2024-01-02 07:00 | PROVIDERS: Admitting Provider Student in an Organized Health Care Education/Training Program; Emergency Provider Student in an Organized Health Care Education/Training Program; PCP Internal Medicine; Visit Provider Internal Medicine Cardiovascular Disease | DX: I35.0 Nonrheumatic aortic (valve) stenosis (principal); I34.81 Nonrheumatic mitral (valve) annulus calcification; I34.0 Nonrheumatic mitral (valve) insufficiency; I36.1 Nonrheumatic tricuspid (valve) insufficiency | CPT/HCPCS: 93306 ==

== ENCOUNTER → 2024-01-01 17:43 | Outpatient (BNV) | payer MEDICARE, SELFPAY | PROVIDERS: Admitting Provider Student in an Organized Health Care Education/Training Program; Emergency Provider Student in an Organized Health Care Education/Training Program; PCP Internal Medicine; Visit Provider Internal Medicine Cardiovascular Disease | DX: J96.01 Acute respiratory failure with hypoxia (principal); I50.9 Heart failure, unspecified; I49.3 Ventricular premature depolarization; I49.1 Atrial premature depolarization; R00.0 Tachycardia, unspecified | CPT/HCPCS: 93010; 99222; 99233 ==

== ENCOUNTER → 2024-01-01 17:43 | Outpatient (BNV) | payer MEDICARE, SELFPAY | PROVIDERS: Admitting Provider Student in an Organized Health Care Education/Training Program; Emergency Provider Student in an Organized Health Care Education/Training Program; PCP Internal Medicine; Visit Provider Student in an Organized Health Care Education/Training Program | DX: I50.9 Heart failure, unspecified (principal) | CPT/HCPCS: 99223; 99232; 99239 ==

== ENCOUNTER 2024-02-13 14:47 | Outpatient (AMB) | payer MEDICARE, SELFPAY ==
[2024-02-13 14:51] VITALS: PULSE 90; O2SAT 95; BMI 39.4
--- NOTE | 2024-02-13 14:51 | A.OFFVIS_ITS ---
Vital Signs 02/13/24 14:51 Height 5 ft Weight 201 lb 11.567 oz BMI 39.4 Pulse 90 Pulse Source Pulse Oximeter Pulse Oximetry (%) 95 Oxygen Delivery Method Room Air Intake Visit Reasons: COPD Prevention Specialist Required: No Allergies ciprofloxacin Allergy (Severe, Verified 02/13/24 14:52) rash HPI Comments Details: The patient is a 69-year-old woman known severe asthma, tobacco dependency and pulmonary nodules. She continues to smoke cigarettes. She is not ready to quit. She continues on the Symbicort and Spiriva. Recently she was admitted to [facility] with the kidney stones and also a complicated urinary tract infection. She has been taking 2 antibiotics. She has also been taking analgesics for the significant pain. She did have a stent placed. Now she needs additional therapies for larger stone removal. Patient needs pulmonary clearance. Overall her respiratory status is improved. She has been using her inhalers regularly. She has not had any pulmonary function studies recently. At this point due to her pain and discomfort would be a good time to do them. She is walking without any significant shortness of breath which is reassuring. We did review her chest x-ray from [facility] done 06/03/2019 demonstrating a question opacity in the right imelda thorax. She did have a CT scan of the chest back in October 2018 demonstrating stable pulmonary nodules.Apparently after had seen and she developed worsening neck discomfort and she called 911. She was found to have an at heart attack, she was admitted to [facility]. She underwent a PCI with stent placed to the LAD. However, after that she had worsening respiratory symptoms. Significant wheezing. Not in any improvement with her respiratory medicines at home. She went to cardiac rehab this morning even though she was short of breath. She was told that it may be from the metoprolol. She is going to call her surface grinder tender to see if we can come off it or decrease the dose. 10/03/2021 the patient is here for a pulmonary follow-up visit. Her respiratory status has significantly gotten worse. During the last visit she explained that she was diagnosed with glaucoma and went to take her off her anticholinergic in respiratory therapy. However, she did get a clarification that was not glaucoma and was cataracts. Therefore she can go back on anticholinergic therapy. She does have increased wheezing and she feels that not being on that medication made her symptoms worse. The patient was denied on Dupixent and therefore will continue her on prednisone for now. The patient does have significant wheezing today and she will receive a dose of Solu-Medrol. She denies any sick contacts. In view of her asthma phenotype will go ahead and do blood work to assess her eosinophils and her IgE levels as well as her allergies. I am hopeful that she can start biologic therapies in order to decrease her steroid needs. 11/20/2021 the patient is here for pulmonary follow-up visit. She is doing a lot better now on Trelegy. The inhaler therapy has been affecting beneficial. She has not required prednisone since the last time. She continues to have shortness of breath with activity. Moderate severity. Does get very winded at times. She also has significant allergies. She takes Benadryl every night. We did do blood work including allergy testing and she has significant allergies to molds and a significantly elevated IgE level will refer to the ostium. The patient does have an asthma phenotype and she will benefit from biologic therapy based on her frequent does of prednisone on maximum therapy. She will be a good candidate for Xolair. However, the patient is resistant on starting a biologic therapies at this time. She is going to continue on current therapy. We also talked about her smoking. She understands smoking slowly making it worse. She is not interested in using any alternative medications at this time. But she will consider cutting down at this time. 09/05/2022 the patient is here for a pulmonary follow-up visit. She has had a hard time with her breathing. She can no longer use the Trelegy because of the cost. Her primary care doctor did prescribe Symbicort. Although still very expensive for her. She has her nebulizer therapy both the DuoNeb and the budesonide. If she does use the 4 times a day at least a DuoNeb in twice a day the budesonide she does need to take any other inhalers except for rescue inhaler. the patient had a hard time with her breathing. She had called the office because she thought she would need prednisone. We did send prednisone she did initially okay but then she got worse again. She does she needed Solu- Medrol. However, she did in 1 go to the ER. We did not have any availability so she could not get shot in the office. She has been off the azithromycin. She takes that 3 times a week. The major issues she still smoking. Change oil smoking she is not ready to quit. Although she knows that she continues smoking she is going to continue getting worse. I am going to go ahead and send the Nicotrol inhaler to the pharmacy. She is going to start that up to see if this could help her decrease and hopefully stop her smoking habit. We did talk about the lung cancer screening program. The patient is not interested at this time. We also talked about biologic therapy. The patient has not been on Xolair. She did not want start. 10/23/2022 the patient is here for sick visit. She has had a hard time breathing off for couple months. Every time she goes on prednisone she does feel better but then when she weans off she always gets worse again. Unfortunately she continues to smoke cigarettes. Also fortunately she is reluctant to go to the ER at any point. She continues to work regularly. She had just completed a course of prednisone. Currently she is having labored breathing with significant audible wheezing. She did a treatment this morning. Though with her significant chest tightness and wheezing I did give her 2 DuoNeb treatments. Also Solu-Medrol 125 mg x 1. The patient is agreeable to staying on a small dose of prednisone at this time based on the fact that she has symptoms when she comes off. She also understands that she needs to quit smoking. I will have her get blood work including a venous gas and also a chest x-ray today prior to discharge. She is going to continue with current respiratory regimen and will be working on cutting down on the smoking. 02/11/2023 the patient is here for a pulmonary follow-up visit. The patient overall showing a little better. She continues to need a prednisone regularly. Although she is not taking it daily only as needed. Explained to her with her ongoing symptoms she is better off taking it once a day at least and then increasing it as needed. The patient does continue to smoke cigarettes. She has not ready to quit right now although she knows that is hurting her. She is looking for a job. She states that if she does get her job then she will work on quitting smoking. If she does decide to quit smoking she can go ahead and start Chantix. We did talk about the risks and side effects of the medication. She is aware of the depression and she would have to engage with family members to make sure that there where so they can monitor her closely. I do believe Chantix would be a good option for the patient. She continues use her respiratory therapy. She responded well to the azithromycin. She did have a chest x-ray back in September demonstrating no acute disease she has hyperinflation of the lungs. I did again recommend the lung cancer screening program but the patient rather not undergo any testing specially since she is not going to have anything done about it. 09/12/2023 the patient is here for sick visit. She has had worsening respiratory symptoms. Significant wheezing and chest congestion. Moderate to severe. Her respiratory therapy helps just for a short period of time. She did have some prednisone at home she did take it. Although she still having hard time. The patient did not want to go to the ER. She has a hard time even speaking in full sentences. The patient has been using her oxygen with good effect. We did document significant wheezing and prolonged expiratory phase. She did receive Solu-Medrol and will continue on the prednisone taper. Will go ahead and treat her with Augmentin for lower respiratory infection. If the patient is not responding she knows to come back for chest x-ray. Otherwise she is going to continue with aggressive respiratory therapy. If the patient is no better she will call the office for an earlier assessment. 02/13/2024 the patient is here for a pulmonary follow-up visit. Recently she went to the ER with worsening respiratory symptoms. There she had an x-ray demonstrating left lower lobe opacity suggesting pneumonia. She was also felt to be volume overloaded. The patient has a history of cardiomyopathy and she is status post defibrillator. She was admitted to the hospital and was diuresed. She was also given antibiotics for presumptive pneumonia. She had an echocardiogram demonstrating an EF of 25% with 2+ diastolic dysfunction significant valvular disease. The patient was discharged in right now she is having issues with breathing. She complains of chest tightness and wheezing. She is on prednisone 10 mg every couple days. She is trying to minimize the prednisone because of her cushingoid appearance. Although she does have significant wheezing on exam and I did give her Solu-Medrol today. Although she can continue with the lower dose prednisone at this time. The patient also will follow-up with cardiology soon. They are going to work on volume status and aggressive diuresis. PFSH Medical History (Updated 02/15/24 @ 22:45 by Willian Stern MD) Pneumonia Asthma Glaucoma Tobacco dependence Asthma Asthma-COPD overlap syndrome BLAKE on CPAP COPD (chronic obstructive pulmonary disease) COPD (chronic obstructive pulmonary disease) Mixed simple and mucopurulent chronic bronchitis Family History Other Asthma Social History Household Members: Spouse Housing: House Do you presently have visiting nurse or other home services: No Patient Tobacco Use Status: Current everyday Tobacco user Tobacco use type: Cigarette Cigarette Packs Per Day: 1 Cigarettes Per Day: 3 Years Smoked: 50 years Advance Directives Date on File: 01/01/24 service: No Review of Systems Const Denies night sweats ENT Denies change in voice, Denies lip swelling, Denies mouth pain, Reports nasal congestion, Reports nasal discharge and Denies tongue swelling Card Denies chest pain and Reports dyspnea on exertion Resp Reports chest congestion, Reports cough, Reports dyspnea on exertion and Reports wheezing GI Denies abdominal pain Musc Denies no additional complaints Neuro Denies Neuro-related abnormal movements Psych Denies no additional complaints Good/Lymph Denies easy bleeding and Denies lymphadenopathy Aller/Immun Denies lip swelling, Denies tongue swelling and Reports wheezing Physical Exam Vital Signs: Last Vital Signs Pulse 90 02/13/24 14:51 Pulse Ox 95 02/13/24 14:51 Oxygen Delivery Method Room Air 02/13/24 14:51 BMI result Body Mass Index 39.4 Const General: alert and acute distress mild HEENT General nose exam: Abnormal external nose present and Nasal discharge present Eyes Pupils: Equal, round and reactive pupils present Neck Neck: Yes normal visual inspection, Yes full ROM and Yes no lymphadenopathy Chest Chest palpation & inspection: normal inspection of the chest Resp Effort & Inspection: Actively coughing and prolonged expiratory phase Auscultation: rhonchi, wheezes scattered wheezes and diminished lung sounds Cardio Rate: regular rate Rhythm: regular rhythm Heart sounds: S1 normal heart sound present and S2 normal heart sound present GI Palpation (GI): Soft to palpation and nontender Auscultation: normal bowel sounds General: Yes no CVA tenderness Back/Spine/Pelvis Back: no CVA tenderness Skin General skin exam: rashes and/or lesions noted Neuro Cranial nerves: Yes Equal, round and reactive pupils present Office Meds methylprednisolone sod suc(PF) 125 mg/2 mL solution for injection Performing Provider: Willian Stern MD Performing Location: [facility] [place] [facility] Administered by: Nakia Calvo LPN on 02/13/24 15:04 Dose Route Admin Location Dispensed Lot Number Expiration Date [employer] 125 mg IM L buttock 2 ea [id number] 03/27/25 8411-1962-91 [employer] Assessment & Plan Assessment & Plan (1) Pneumonia: Code(s): J18.9 - Pneumonia, unspecified organism Category: Medical Qualifiers: Pneumonia type: due to unspecified organism Laterality: left Lung location: lower lobe of lung Qualified Code(s): J18.9 - Pneumonia, unspecified organism (2) COPD (chronic obstructive pulmonary disease): Code(s): J44.9 - Chronic obstructive pulmonary disease, unspecified Category: Medical Qualifiers: COPD type: COPD with acute exacerbation Qualified Code(s): J44.1 - Chronic obstructive pulmonary disease with (acute) exacerbation (3) Asthma-COPD overlap syndrome: Code(s): J44.9 - Chronic obstructive pulmonary disease, unspecified Category: Medical (4) Tobacco dependence: Code(s): F17.200 - Nicotine dependence, unspecified, uncomplicated Category: Medical (5) Glaucoma: Code(s): H40.9 - Unspecified glaucoma Category: Medical Plan Solumedrol today Prednisone taper start doxycycline hold Azithromycin 500mg MWF CXR prednisone taper, then stay on 10mg daily continue budesonide twice a day Duoneb QID (monitor for mental status changes) Continue oxygen supplementation with activity and sleep consider Chantix, rx givent on paper Consider LDCT screening reflux diet/PPI Follow-up in 2-3 months Orders: Orders XR chest 2V 02/13/24 J18.9 - Pneumonia, unspecified organism AMB Methylprednisolone Sod Succ Injection 02/13/24 J45.51 - Severe persistent asthma with (acute) exacerbation Medications: New prednisone 20 mg (2 x 10 mg) PO DAILY 60 tabs 3RF 30 days doxycycline monohydrate 100 mg PO BID 28 tabs 0RF 14 days Coding Level of Care Code Est Pt Level 4 (30884) Diagnoses Pneumonia of left lower lobe due to infectious organism J18.9 Pneumonia type: due to unspecified organism Laterality: left Lung location: lower lobe of lung Chronic obstructive pulmonary disease with acute exacerbation J44.1 COPD type: COPD with acute exacerbation Asthma-COPD overlap syndrome J44.9 Tobacco dependence F17.200 Glaucoma H40.9 Time Spent (min) 17
== END 2024-02-13 15:19 | disposition home or self-care (01) ==
PROVIDERS: PCP Internal Medicine; Visit Provider Hospitalist
DX: J18.9 Pneumonia, unspecified organism (principal); J44.1 Chronic obstructive pulmonary disease with (acute) exacerbation; J44.9 Chronic obstructive pulmonary disease, unspecified; F17.200 Nicotine dependence, unspecified, uncomplicated; H40.9 Unspecified glaucoma; J45.51 Severe persistent asthma with (acute) exacerbation
CPT/HCPCS: 99214

== ENCOUNTER → 2024-02-13 14:47 | Outpatient (BNVA) | payer MEDICARE, SELFPAY | PROVIDERS: PCP Internal Medicine; Visit Provider Hospitalist | DX: J44.1 Chronic obstructive pulmonary disease with (acute) exacerbation (principal); J45.51 Severe persistent asthma with (acute) exacerbation; J18.9 Pneumonia, unspecified organism; R91.8 Other nonspecific abnormal finding of lung field; F17.210 Nicotine dependence, cigarettes, uncomplicated | CPT/HCPCS: 96372; 99212 ==

== ENCOUNTER 2024-04-26 09:38 | Outpatient (AMB) | payer MEDICARE, SELFPAY ==
--- NOTE | 2024-04-26 09:39 | MHC.OFFVIS ---
Vital Signs 04/26/24 09:40 Weight 203 lb 14.841 oz BP 118/80 Blood Pressure Location Lt brachial Position Sitting Pulse 102 H Pulse Source Pulse Oximeter Pulse Oximetry (%) 99 Intake Visit Reasons: COPD Allergies ciprofloxacin Allergy (Severe, Verified 04/26/24 09:43) rash Medication List - Last Reconciled 04/26/24 by Nakia Calvo LPN acetaminophen 1,000 mg PO TID albuterol sulfate 90 mcg/actuation 2 puffs PO Q6H PRN 90 days atorvastatin 80 mg PO DAILY azithromycin 500 mg PO MOWEFR@0900 cholecalciferol (vitamin D3) PO doxycycline monohydrate 100 mg PO BID 14 days empagliflozin (Jardiance) 25 mg PO DAILY fluticasone propionate 50 mcg/actuation (Allergy Relief (fluticasone)) 1 spray intranasal DAILY 90 days furosemide 20 mg PO BID gabapentin 300 mg PO TID ipratropium-albuterol 0.5 mg-3 mg(2.5 mg base)/3 mL 3 mL inhalation QID loratadine 10 mg PO DAILY metoprolol succinate ER 50 mg PO DAILY montelukast 10 mg PO DAILY multivitamin 1 tab PO DAILY nebulizers As directed omeprazole 40 mg PO DAILY pioglitazone 30 mg PO DAILY prednisone 20 mg (2 x 10 mg) PO DAILY 30 days prednisone 30 mg (3 x 10 mg) PO DAILY prednisone 40 mg PO DAILY PRN sacubitril-valsartan 49-51 mg (Entresto) 1 tab See Protocol PO BID sertraline 100 mg PO DAILY spironolactone 12.5 mg See Protocol PO DAILY HPI Comments Details: The patient is a 69-year-old woman known severe asthma, tobacco dependency and pulmonary nodules. She continues to smoke cigarettes. She is not ready to quit. She continues on the Symbicort and Spiriva. Recently she was admitted to [facility] with the kidney stones and also a complicated urinary tract infection. She has been taking 2 antibiotics. She has also been taking analgesics for the significant pain. She did have a stent placed. Now she needs additional therapies for larger stone removal. Patient needs pulmonary clearance. Overall her respiratory status is improved. She has been using her inhalers regularly. She has not had any pulmonary function studies recently. At this point due to her pain and discomfort would be a good time to do them. She is walking without any significant shortness of breath which is reassuring. We did review her chest x-ray from [facility] done 06/03/2019 demonstrating a question opacity in the right imelda thorax. She did have a CT scan of the chest back in October 2018 demonstrating stable pulmonary nodules.Apparently after had seen and she developed worsening neck discomfort and she called 911. She was found to have an at heart attack, she was admitted to [facility]. She underwent a PCI with stent placed to the LAD. However, after that she had worsening respiratory symptoms. Significant wheezing. Not in any improvement with her respiratory medicines at home. She went to cardiac rehab this morning even though she was short of breath. She was told that it may be from the metoprolol. She is going to call her tunnel heading inspector to see if we can come off it or decrease the dose. 10/03/2021 the patient is here for a pulmonary follow-up visit. Her respiratory status has significantly gotten worse. During the last visit she explained that she was diagnosed with glaucoma and went to take her off her anticholinergic in respiratory therapy. However, she did get a clarification that was not glaucoma and was cataracts. Therefore she can go back on anticholinergic therapy. She does have increased wheezing and she feels that not being on that medication made her symptoms worse. The patient was denied on Dupixent and therefore will continue her on prednisone for now. The patient does have significant wheezing today and she will receive a dose of Solu-Medrol. She denies any sick contacts. In view of her asthma phenotype will go ahead and do blood work to assess her eosinophils and her IgE levels as well as her allergies. I am hopeful that she can start biologic therapies in order to decrease her steroid needs. 11/20/2021 the patient is here for pulmonary follow-up visit. She is doing a lot better now on Trelegy. The inhaler therapy has been affecting beneficial. She has not required prednisone since the last time. She continues to have shortness of breath with activity. Moderate severity. Does get very winded at times. She also has significant allergies. She takes Benadryl every night. We did do blood work including allergy testing and she has significant allergies to molds and a significantly elevated IgE level will refer to the ostium. The patient does have an asthma phenotype and she will benefit from biologic therapy based on her frequent does of prednisone on maximum therapy. She will be a good candidate for Xolair. However, the patient is resistant on starting a biologic therapies at this time. She is going to continue on current therapy. We also talked about her smoking. She understands smoking slowly making it worse. She is not interested in using any alternative medications at this time. But she will consider cutting down at this time. 09/05/2022 the patient is here for a pulmonary follow-up visit. She has had a hard time with her breathing. She can no longer use the Trelegy because of the cost. Her primary care doctor did prescribe Symbicort. Although still very expensive for her. She has her nebulizer therapy both the DuoNeb and the budesonide. If she does use the 4 times a day at least a DuoNeb in twice a day the budesonide she does need to take any other inhalers except for rescue inhaler. the patient had a hard time with her breathing. She had called the office because she thought she would need prednisone. We did send prednisone she did initially okay but then she got worse again. She does she needed Solu-Medrol. However, she did in 1 go to the ER. We did not have any availability so she could not get shot in the office. She has been off the azithromycin. She takes that 3 times a week. The major issues she still smoking. Change oil smoking she is not ready to quit. Although she knows that she continues smoking she is going to continue getting worse. I am going to go ahead and send the Nicotrol inhaler to the pharmacy. She is going to start that up to see if this could help her decrease and hopefully stop her smoking habit. We did talk about the lung cancer screening program. The patient is not interested at this time. We also talked about biologic therapy. The patient has not been on Xolair. She did not want start. 10/23/2022 the patient is here for sick visit. She has had a hard time breathing off for couple months. Every time she goes on prednisone she does feel better but then when she weans off she always gets worse again. Unfortunately she continues to smoke cigarettes. Also fortunately she is reluctant to go to the ER at any point. She continues to work regularly. She had just completed a course of prednisone. Currently she is having labored breathing with significant audible wheezing. She did a treatment this morning. Though with her significant chest tightness and wheezing I did give her 2 DuoNeb treatments. Also Solu-Medrol 125 mg x 1. The patient is agreeable to staying on a small dose of prednisone at this time based on the fact that she has symptoms when she comes off. She also understands that she needs to quit smoking. I will have her get blood work including a venous gas and also a chest x-ray today prior to discharge. She is going to continue with current respiratory regimen and will be working on cutting down on the smoking. 02/11/2023 the patient is here for a pulmonary follow-up visit. The patient overall showing a little better. She continues to need a prednisone regularly. Although she is not taking it daily only as needed. Explained to her with her ongoing symptoms she is better off taking it once a day at least and then increasing it as needed. The patient does continue to smoke cigarettes. She has not ready to quit right now although she knows that is hurting her. She is looking for a job. She states that if she does get her job then she will work on quitting smoking. If she does decide to quit smoking she can go ahead and start Chantix. We did talk about the risks and side effects of the medication. She is aware of the depression and she would have to engage with family members to make sure that there where so they can monitor her closely. I do believe Chantix would be a good option for the patient. She continues use her respiratory therapy. She responded well to the azithromycin. She did have a chest x-ray back in September demonstrating no acute disease she has hyperinflation of the lungs. I did again recommend the lung cancer screening program but the patient rather not undergo any testing specially since she is not going to have anything done about it. 09/12/2023 the patient is here for sick visit. She has had worsening respiratory symptoms. Significant wheezing and chest congestion. Moderate to severe. Her respiratory therapy helps just for a short period of time. She did have some prednisone at home she did take it. Although she still having hard time. The patient did not want to go to the ER. She has a hard time even speaking in full sentences. The patient has been using her oxygen with good effect. We did document significant wheezing and prolonged expiratory phase. She did receive Solu-Medrol and will continue on the prednisone taper. Will go ahead and treat her with Augmentin for lower respiratory infection. If the patient is not responding she knows to come back for chest x-ray. Otherwise she is going to continue with aggressive respiratory therapy. If the patient is no better she will call the office for an earlier assessment. 02/13/2024 the patient is here for a pulmonary follow-up visit. Recently she went to the ER with worsening respiratory symptoms. There she had an x-ray demonstrating left lower lobe opacity suggesting pneumonia. She was also felt to be volume overloaded. The patient has a history of cardiomyopathy and she is status post defibrillator. She was admitted to the hospital and was diuresed. She was also given antibiotics for presumptive pneumonia. She had an echocardiogram demonstrating an EF of 25% with 2+ diastolic dysfunction significant valvular disease. The patient was discharged in right now she is having issues with breathing. She complains of chest tightness and wheezing. She is on prednisone 10 mg every couple days. She is trying to minimize the prednisone because of her cushingoid appearance. Although she does have significant wheezing on exam and I did give her Solu-Medrol today. Although she can continue with the lower dose prednisone at this time. The patient also will follow-up with cardiology soon. They are going to work on volume status and aggressive diuresis. 04/26/2024 the patient is here for a pulmonary follow-up visit. The patient has been sick. She has been taking 20 mg of prednisone. Has a hard time exhaling and also expectorating. We did talk about bronchoscopy but the patient is not interested at this time. She also has stop some of the cardiac medications because over too expensive. She has significant rhonchi and wheezing today. She will receive additional Solu-Medrol will have to increase the prednisone. Unfortunately she continues to smoke cigarettes. She understands that this is going to continue making things worse for her. She needs to talk to her tunnel heading inspector regarding the lack of cardioprotective medications. She did increase her diuretics however. [facility] Medical History (Updated 04/26/24 @ 09:47 by Willian Stern MD) Pneumonia Asthma Glaucoma Tobacco dependence Asthma Asthma-COPD overlap syndrome BLAKE on CPAP COPD (chronic obstructive pulmonary disease) COPD (chronic obstructive pulmonary disease) Mixed simple and mucopurulent chronic bronchitis Family History Other Asthma Social History Household Members: Spouse Housing: House Do you presently have visiting nurse or other home services: No Patient Tobacco Use Status: Current everyday Tobacco user Tobacco use type: Cigarette Cigarette Packs Per Day: 1 Cigarettes Per Day: 3 Years Smoked: 50 years Advance Directives Date on File: 01/01/24 service: No Review of Systems Const Denies night sweats ENT Denies change in voice, Denies lip swelling, Denies mouth pain, Reports nasal congestion, Reports nasal discharge and Denies tongue swelling Card Denies chest pain and Reports dyspnea on exertion Resp Reports chest congestion, Reports cough, Reports dyspnea on exertion and Reports wheezing GI Denies abdominal pain Musc Denies no additional complaints Neuro Denies Neuro-related abnormal movements Psych Denies no additional complaints Good/Lymph Denies easy bleeding and Denies lymphadenopathy Aller/Immun Denies lip swelling, Denies tongue swelling and Reports wheezing Physical Exam Vital Signs: Last Vital Signs Pulse 102 H 04/26/24 09:40 BP 118/80 04/26/24 09:40 Pulse Ox 99 04/26/24 09:40 Const General: alert and acute distress mild HEENT General nose exam: Abnormal external nose present and Nasal discharge present Eyes Pupils: Equal, round and reactive pupils present Neck Neck: Yes normal visual inspection, Yes full ROM and Yes no lymphadenopathy Chest Chest palpation & inspection: normal inspection of the chest Resp Effort & Inspection: Actively coughing and prolonged expiratory phase Auscultation: rhonchi, wheezes scattered wheezes and diminished lung sounds Cardio Rate: regular rate Rhythm: regular rhythm Heart sounds: S1 normal heart sound present and S2 normal heart sound present GI Palpation (GI): Soft to palpation and nontender Auscultation: normal bowel sounds General: Yes no CVA tenderness Back/Spine/Pelvis Back: no CVA tenderness Skin General skin exam: rashes and/or lesions noted Neuro Cranial nerves: Yes Equal, round and reactive pupils present Office Meds methylprednisolone sod suc(PF) 125 mg/2 mL solution for injection Performing Provider: Willian Stern MD Performing Location: [facility] [place] Pulmonology Services Administered by: Nakia Calvo LPN on 04/26/24 10:00 Dose Route Admin Location Dispensed Lot Number Expiration Date NDC Equal Opportunity Assistant 125 mg IM R buttock 2 ea [id number] 03/27/26 3630-0637-20 [employer] Comments: total dose given 125mg/2ml Assessment & Plan Assessment & Plan (1) COPD (chronic obstructive pulmonary disease): Code(s): J44.9 - Chronic obstructive pulmonary disease, unspecified Category: Medical Qualifiers: COPD type: COPD with acute exacerbation Qualified Code(s): J44.1 - Chronic obstructive pulmonary disease with (acute) exacerbation (2) Asthma-COPD overlap syndrome: Code(s): J44.9 - Chronic obstructive pulmonary disease, unspecified Category: Medical (3) Tobacco dependence: Code(s): F17.200 - Nicotine dependence, unspecified, uncomplicated Category: Medical (4) Glaucoma: Code(s): H40.9 - Unspecified glaucoma Category: Medical Qualifiers: Glaucoma type: unspecified Laterality: unspecified laterality Qualified Code(s): H40.9 - Unspecified glaucoma Plan consider bronchoscopy, pt deferred. start Augmentin x 14 days Increase Prednisone 40mg x 5 days, then taper down solumedrol IM x 1 continue budesonide twice a day Duoneb QID (monitor for mental status changes) Continue oxygen supplementation with activity and sleep consider Chantix, rx givent on paper Consider LDCT screening reflux diet/PPI Follow-up in 2-3 months Orders: Orders AMB Methylprednisolone Sod Succ Injection Today J44.1 - Chronic obstructive pulmonary disease with (acute) exacerbation Medications: New amoxicillin-pot clavulanate 875-125 mg 1 tab PO BID 10 days 20 tabs 0RF prednisone PO daily; Take 6 tabs daily x 3 days, then 5 tabs x 3 days, then 4 tabs x 3 days, then 3 tabs x 3 days, then 2 tabs daily x 3 days, then 1 tab x 3 days to complete. 18 days 63 tabs 0RF Coding Level of Care Code Est Pt Level 4 (65252) Complex EM visit Add On G2211 Diagnoses Chronic obstructive pulmonary disease with acute exacerbation J44.1 COPD type: COPD with acute exacerbation Asthma-COPD overlap syndrome J44.9 Tobacco dependence F17.200 Glaucoma, unspecified glaucoma type, unspecified laterality H40.9 Glaucoma type: unspecified Laterality: unspecified laterality Time Spent (min) 17
[2024-04-26 09:40] VITALS: BP 118/80; PULSE 102; O2SAT 99
== END 2024-04-26 09:58 | disposition home or self-care (01) ==
PROVIDERS: PCP Internal Medicine; Visit Provider Hospitalist
DX: J44.1 Chronic obstructive pulmonary disease with (acute) exacerbation (principal); J44.9 Chronic obstructive pulmonary disease, unspecified; F17.200 Nicotine dependence, unspecified, uncomplicated; H40.9 Unspecified glaucoma
CPT/HCPCS: 99214; G2211

== ENCOUNTER → 2024-04-26 09:38 | Outpatient (BNVA) | payer MEDICARE, SELFPAY | PROVIDERS: PCP Internal Medicine; Visit Provider Hospitalist | DX: J44.1 Chronic obstructive pulmonary disease with (acute) exacerbation (principal); H40.9 Unspecified glaucoma; F17.210 Nicotine dependence, cigarettes, uncomplicated | CPT/HCPCS: 96372; 99212; J2919 ==

== ENCOUNTER 2024-08-12 09:38 | Outpatient (AMB) | payer MEDICARE, SELFPAY ==
[2024-08-12 09:56] VITALS: BP 106/56; PULSE 90; O2SAT 97
--- NOTE | 2024-08-12 09:56 | A.OFFVIS_ITS ---
Vital Signs 08/12/24 09:56 Weight 199 lb 8.293 oz BP 106/56 L Blood Pressure Location Rt brachial Position Sitting Pulse 90 Pulse Oximetry (%) 97 Oxygen Delivery Method Room Air Intake Visit Reasons: COPD Allergies ciprofloxacin Allergy (Severe, Verified 08/12/24 10:01) rash Medication List - Last Reconciled 08/12/24 by Nakia Calvo LPN acetaminophen 1,000 mg PO TID albuterol sulfate 90 mcg/actuation 2 puffs PO Q6H PRN 90 days atorvastatin 80 mg PO DAILY azithromycin 500 mg PO MOWEFR@0900 empagliflozin (Jardiance) 25 mg PO DAILY fluticasone propionate 50 mcg/actuation (Allergy Relief (fluticasone)) 1 spray intranasal DAILY 90 days furosemide 20 mg PO BID gabapentin 300 mg PO TID ipratropium-albuterol 0.5 mg-3 mg(2.5 mg base)/3 mL 3 mL inhalation QID loratadine 10 mg PO DAILY metoprolol succinate ER 50 mg PO DAILY montelukast 10 mg PO DAILY multivitamin 1 tab PO DAILY nebulizers As directed omeprazole 40 mg PO DAILY prednisone 20 mg (2 x 10 mg) PO DAILY 30 days prednisone 30 mg (3 x 10 mg) PO DAILY prednisone 40 mg PO DAILY PRN sacubitril-valsartan 49-51 mg (Entresto) 1 tab See Protocol PO BID sertraline 100 mg PO DAILY spironolactone 12.5 mg See Protocol PO DAILY HPI Comments Details: The patient is a 69-year-old woman known severe asthma, tobacco dependency and pulmonary nodules. She continues to smoke cigarettes. She is not ready to quit. She continues on the Symbicort and Spiriva. Recently she was admitted to [facility] with the kidney stones and also a complicated urinary tract infection. She has been taking 2 antibiotics. She has also been taking analgesics for the significant pain. She did have a stent placed. Now she needs additional therapies for larger stone removal. Patient needs pulmonary clearance. Overall her respiratory status is improved. She has been using her inhalers regularly. She has not had any pulmonary function studies recently. At this point due to her pain and discomfort would be a good time to do them. She is walking without any significant shortness of breath which is reassuring. We did review her chest x-ray from [facility] done 06/03/2019 demonstrating a question opacity in the right imelda thorax. She did have a CT scan of the chest back in October 2018 demonstrating stable pulmonary nodules.Apparently after had seen and she developed worsening neck discomfort and she called 911. She was found to have an at heart attack, she was admitted to [facility]. She underwent a PCI with stent placed to the LAD. However, after that she had worsening respiratory symptoms. Significant wheezing. Not in any improvement with her respiratory medicines at home. She went to cardiac rehab this morning even though she was short of breath. She was told that it may be from the metoprolol. She is going to call her hammer smith to see if we can come off it or decrease the dose. 10/03/2021 the patient is here for a pulmonary follow-up visit. Her respiratory status has significantly gotten worse. During the last visit she explained that she was diagnosed with glaucoma and went to take her off her anticholinergic in respiratory therapy. However, she did get a clarification that was not glaucoma and was cataracts. Therefore she can go back on anticholinergic therapy. She does have increased wheezing and she feels that not being on that medication made her symptoms worse. The patient was denied on Dupixent and therefore will continue her on prednisone for now. The patient does have significant wheezing today and she will receive a dose of Solu-Medrol. She denies any sick contacts. In view of her asthma phenotype will go ahead and do blood work to assess her eosinophils and her IgE levels as well as her allergies. I am hopeful that she can start biologic therapies in order to decrease her steroid needs. 11/20/2021 the patient is here for pulmonary follow-up visit. She is doing a lot better now on Trelegy. The inhaler therapy has been affecting beneficial. She has not required prednisone since the last time. She continues to have shortness of breath with activity. Moderate severity. Does get very winded at times. She also has significant allergies. She takes Benadryl every night. We did do blood work including allergy testing and she has significant allergies to molds and a significantly elevated IgE level will refer to the ostium. The patient does have an asthma phenotype and she will benefit from biologic therapy based on her frequent does of prednisone on maximum therapy. She will be a good candidate for Xolair. However, the patient is resistant on starting a biologic therapies at this time. She is going to continue on current therapy. We also talked about her smoking. She understands smoking slowly making it worse. She is not interested in using any alternative medications at this time. But she will consider cutting down at this time. 09/05/2022 the patient is here for a pulmonary follow-up visit. She has had a hard time with her breathing. She can no longer use the Trelegy because of the cost. Her primary care doctor did prescribe Symbicort. Although still very expensive for her. She has her nebulizer therapy both the DuoNeb and the budesonide. If she does use the 4 times a day at least a DuoNeb in twice a day the budesonide she does need to take any other inhalers except for rescue inhaler. the patient had a hard time with her breathing. She had called the office because she thought she would need prednisone. We did send prednisone she did initially okay but then she got worse again. She does she needed Solu- Medrol. However, she did in 1 go to the ER. We did not have any availability so she could not get shot in the office. She has been off the azithromycin. She takes that 3 times a week. The major issues she still smoking. Change oil smoking she is not ready to quit. Although she knows that she continues smoking she is going to continue getting worse. I am going to go ahead and send the Nicotrol inhaler to the pharmacy. She is going to start that up to see if this could help her decrease and hopefully stop her smoking habit. We did talk about the lung cancer screening program. The patient is not interested at this time. We also talked about biologic therapy. The patient has not been on Xolair. She did not want start. 10/23/2022 the patient is here for sick visit. She has had a hard time breathing off for couple months. Every time she goes on prednisone she does feel better but then when she weans off she always gets worse again. Unfortunately she continues to smoke cigarettes. Also fortunately she is reluctant to go to the ER at any point. She continues to work regularly. She had just completed a course of prednisone. Currently she is having labored breathing with significant audible wheezing. She did a treatment this morning. Though with her significant chest tightness and wheezing I did give her 2 DuoNeb treatments. Also Solu-Medrol 125 mg x 1. The patient is agreeable to staying on a small dose of prednisone at this time based on the fact that she has symptoms when she comes off. She also understands that she needs to quit smoking. I will have her get blood work including a venous gas and also a chest x-ray today prior to discharge. She is going to continue with current respiratory regimen and will be working on cutting down on the smoking. 02/11/2023 the patient is here for a pulmonary follow-up visit. The patient overall showing a little better. She continues to need a prednisone regularly. Although she is not taking it daily only as needed. Explained to her with her ongoing symptoms she is better off taking it once a day at least and then increasing it as needed. The patient does continue to smoke cigarettes. She has not ready to quit right now although she knows that is hurting her. She is looking for a job. She states that if she does get her job then she will work on quitting smoking. If she does decide to quit smoking she can go ahead and start Chantix. We did talk about the risks and side effects of the medication. She is aware of the depression and she would have to engage with family members to make sure that there where so they can monitor her closely. I do believe Chantix would be a good option for the patient. She continues use her respiratory therapy. She responded well to the azithromycin. She did have a chest x-ray back in September demonstrating no acute disease she has hyperinflation of the lungs. I did again recommend the lung cancer screening program but the patient rather not undergo any testing specially since she is not going to have anything done about it. 09/12/2023 the patient is here for sick visit. She has had worsening respiratory symptoms. Significant wheezing and chest congestion. Moderate to severe. Her respiratory therapy helps just for a short period of time. She did have some prednisone at home she did take it. Although she still having hard time. The patient did not want to go to the ER. She has a hard time even speaking in full sentences. The patient has been using her oxygen with good effect. We did document significant wheezing and prolonged expiratory phase. She did receive Solu-Medrol and will continue on the prednisone taper. Will go ahead and treat her with Augmentin for lower respiratory infection. If the patient is not responding she knows to come back for chest x-ray. Otherwise she is going to continue with aggressive respiratory therapy. If the patient is no better she will call the office for an earlier assessment. 02/13/2024 the patient is here for a pulmonary follow-up visit. Recently she went to the ER with worsening respiratory symptoms. There she had an x-ray demonstrating left lower lobe opacity suggesting pneumonia. She was also felt to be volume overloaded. The patient has a history of cardiomyopathy and she is status post defibrillator. She was admitted to the hospital and was diuresed. She was also given antibiotics for presumptive pneumonia. She had an echocardiogram demonstrating an EF of 25% with 2+ diastolic dysfunction significant valvular disease. The patient was discharged in right now she is having issues with breathing. She complains of chest tightness and wheezing. She is on prednisone 10 mg every couple days. She is trying to minimize the prednisone because of her cushingoid appearance. Although she does have significant wheezing on exam and I did give her Solu-Medrol today. Although she can continue with the lower dose prednisone at this time. The patient also will follow-up with cardiology soon. They are going to work on volume status and aggressive diuresis. 04/26/2024 the patient is here for a pulmonary follow-up visit. The patient has been sick. She has been taking 20 mg of prednisone. Has a hard time exhaling and also expectorating. We did talk about bronchoscopy but the patient is not interested at this time. She also has stop some of the cardiac medications because over too expensive. She has significant rhonchi and wheezing today. She will receive additional Solu-Medrol will have to increase the prednisone. Unfortunately she continues to smoke cigarettes. She und erstands that this is going to continue making things worse for her. She needs to talk to her hammer smith regarding the lack of cardioprotective medications. She did increase her diuretics however. 08/12/2024 the patient is here for pulmonary follow-up visit. Overall the patient has been feeling a lot better. She did follow-up with Cardiology and she was placed on heart failure medications. She has felt significantly improvement after starting her cardiac therapy. She still has wheezing. She unfortunately continues to smoke cigarettes. She also unfortunately continues to require prednisone. At this point she is prednisone dependent. The patient is not interested in quitting smoking unfortunately and she is aware that it is causing damage to her lungs in further progressing her lung disease and her inability to breathe. Therefore, she will continue with the current respiratory therapy. She is not interested in participating in the lung cancer screening program at this time. [facility] Medical History (Updated 04/26/24 @ 09:47 by Willian Stern MD) Pneumonia Asthma Glaucoma Tobacco dependence Asthma Asthma-COPD overlap syndrome BLAKE on CPAP COPD (chronic obstructive pulmonary disease) COPD (chronic obstructive pulmonary disease) Mixed simple and mucopurulent chronic bronchitis Family History Other Asthma Social History Household Members: Spouse Housing: House Do you presently have visiting nurse or other home services: No Patient Tobacco Use Status: Current everyday Tobacco user Tobacco use type: Cigarette Cigarette Packs Per Day: 1 Cigarettes Per Day: 3 Years Smoked: 50 years Advance Directives Date on File: 01/01/24 service: No Review of Systems Const Denies night sweats and Reports weight loss ENT Denies change in voice, Denies lip swelling, Denies mouth pain, Reports nasal congestion, Reports nasal discharge and Denies tongue swelling Card Denies chest pain and Reports dyspnea on exertion Resp Reports chest congestion, Reports cough, Reports dyspnea on exertion and Reports wheezing GI Denies abdominal pain Musc Denies no additional complaints Neuro Denies Neuro-related abnormal movements Psych Denies no additional complaints Good/Lymph Denies easy bleeding and Denies lymphadenopathy Aller/Immun Denies lip swelling, Denies tongue swelling and Reports wheezing Physical Exam Vital Signs: Last Vital Signs Pulse 90 08/12/24 09:56 BP 106/56 L 08/12/24 09:56 Pulse Ox 97 08/12/24 09:56 Oxygen Delivery Method Room Air 08/12/24 09:56 Const General: alert and acute distress mild HEENT General nose exam: Abnormal external nose present and Nasal discharge present Eyes Pupils: Equal, round and reactive pupils present Neck Neck: Yes normal visual inspection, Yes full ROM and Yes no lymphadenopathy Chest Chest palpation & inspection: normal inspection of the chest Resp Effort & Inspection: prolonged expiratory phase Auscultation: wheezes scattered wheezes and diminished lung sounds Cardio Rate: regular rate Rhythm: regular rhythm Heart sounds: S1 normal heart sound present and S2 normal heart sound present GI Palpation (GI): Soft to palpation and nontender Auscultation: normal bowel sounds General: Yes no CVA tenderness Back/Spine/Pelvis Back: no CVA tenderness Skin General skin exam: rashes and/or lesions noted Neuro Cranial nerves: Yes Equal, round and reactive pupils present Assessment & Plan Assessment & Plan (1) COPD (chronic obstructive pulmonary disease): Code(s): J44.9 - Chronic obstructive pulmonary disease, unspecified Category: Medical Qualifiers: COPD type: COPD with acute exacerbation Qualified Code(s): J44.1 - Chronic obstructive pulmonary disease with (acute) exacerbation (2) Asthma-COPD overlap syndrome: Code(s): J44.9 - Chronic obstructive pulmonary disease, unspecified Category: Medical (3) Tobacco dependence: Code(s): F17.200 - Nicotine dependence, unspecified, uncomplicated Category: Medical (4) Glaucoma: Code(s): H40.9 - Unspecified glaucoma Category: Medical Qualifiers: Glaucoma type: unspecified Laterality: unspecified laterality Qualified Code(s): H40.9 - Unspecified glaucoma Plan Prednisone continue budesonide twice a day Duoneb QID, monitor for visual changes, none reported Continue oxygen supplementation with activity and sleep consider Chantix, not interested in quiting or cutting down at this time Consider LDCT screening, not interested at this time reflux diet/PPI Follow-up in 3-4 months Coding Level of Care Code Est Pt Level 4 (09146) Complex EM visit Add On G2211 Diagnoses Chronic obstructive pulmonary disease with acute exacerbation J44.1 COPD type: COPD with acute exacerbation Asthma-COPD overlap syndrome J44.9 Tobacco dependence F17.200 Glaucoma, unspecified glaucoma type, unspecified laterality H40.9 Glaucoma type: unspecified Laterality: unspecified laterality Time Spent (min) 16
== END 2024-08-12 10:17 | disposition home or self-care (01) ==
PROVIDERS: PCP Internal Medicine; Visit Provider Hospitalist
DX: J44.1 Chronic obstructive pulmonary disease with (acute) exacerbation (principal); J44.9 Chronic obstructive pulmonary disease, unspecified; F17.200 Nicotine dependence, unspecified, uncomplicated; H40.9 Unspecified glaucoma
CPT/HCPCS: 99214; G2211

== ENCOUNTER → 2024-08-12 09:38 | Outpatient (BNVA) | payer MEDICARE, SELFPAY | PROVIDERS: PCP Internal Medicine; Visit Provider Hospitalist | DX: J44.1 Chronic obstructive pulmonary disease with (acute) exacerbation (principal); H40.9 Unspecified glaucoma; F17.210 Nicotine dependence, cigarettes, uncomplicated | CPT/HCPCS: 99212 ==

== ENCOUNTER 2025-02-08 11:03 | Outpatient (AMB) | payer MEDICARE, SELFPAY ==
--- NOTE | 2025-02-08 11:06 | A.OFFVIS_ITS ---
Vital Signs 02/08/25 11:07 Height 5 ft Weight 201 lb 11.567 oz BMI 39.4 BP 100/58 L Blood Pressure Location Lt brachial Position Sitting Pulse 87 Pulse Source Pulse Oximeter Pulse Oximetry (%) 96 Oxygen Delivery Method Room Air Intake Visit Reasons: COPD Operations Support Analyst Required: No Accompanied by: Self / Same As Patient Allergies ciprofloxacin Allergy (Severe, Verified 02/08/25 11:10) rash HPI Comments Details: The patient is a 70-year-old woman known severe asthma, tobacco dependency and pulmonary nodules. She continues to smoke cigarettes. She is not ready to quit. She continues on the Symbicort and Spiriva. Recently she was admitted to [facility] with the kidney stones and also a complicated urinary tract infection. She has been taking 2 antibiotics. She has also been taking analgesics for the significant pain. She did have a stent placed. Now she needs additional therapies for larger stone removal. Patient needs pulmonary clearance. Overall her respiratory status is improved. She has been using her inhalers regularly. She has not had any pulmonary function studies recently. At this point due to her pain and discomfort would be a good time to do them. She is walking without any significant shortness of breath which is reassuring. We did review her chest x-ray from [facility] done 06/03/2019 demonstrating a question opacity in the right imelda thorax. She did have a CT scan of the chest back in October 2018 demonstrating stable pulmonary nodules.Apparently after had seen and she developed worsening neck discomfort and she called 911. She was found to have an at heart attack, she was admitted to [facility]. She underwent a PCI with stent placed to the LAD. However, after that she had worsening respiratory symptoms. Significant wheezing. Not in any improvement with her respiratory medicines at home. She went to cardiac rehab this morning even though she was short of breath. She was told that it may be from the metoprolol. She is going to call her manager hotel to see if we can come off it or decrease the dose. 10/03/2021 the patient is here for a pulmonary follow-up visit. Her respiratory status has significantly gotten worse. During the last visit she explained that she was diagnosed with glaucoma and went to take her off her anticholinergic in respiratory therapy. However, she did get a clarification that was not glaucoma and was cataracts. Therefore she can go back on anticholinergic therapy. She does have increased wheezing and she feels that not being on that medication made her symptoms worse. The patient was denied on Dupixent and therefore will continue her on prednisone for now. The patient leiva s have significant wheezing today and she will receive a dose of Solu-Medrol. She denies any sick contacts. In view of her asthma phenotype will go ahead and do blood work to assess her eosinophils and her IgE levels as well as her allergies. I am hopeful that she can start biologic therapies in order to decrease her steroid needs. 11/20/2021 the patient is here for pulmonary follow-up visit. She is doing a lot better now on Trelegy. The inhaler therapy has been affecting beneficial. She has not required prednisone since the last time. She continues to have shortness of breath with activity. Moderate severity. Does get very winded at times. She also has significant allergies. She takes Benadryl every night. We did do blood work including allergy testing and she has significant allergies to molds and a significantly elevated IgE level will refer to the ostium. The patient does have an asthma phenotype and she will benefit from biologic therapy based on her frequent does of prednisone on maximum therapy. She will be a good candidate for Xolair. However, the patient is resistant on starting a biologic therapies at this time. She is going to continue on current therapy. We also talked about her smoking. She understands smoking slowly making it worse. She is not interested in using any alternative medications at this time. But she will consider cutting down at this time. 09/05/2022 the patient is here for a pulmonary follow-up visit. She has had a hard time with her breathing. She can no longer use the Trelegy because of the cost. Her primary care doctor did prescribe Symbicort. Although still very expensive for her. She has her nebulizer therapy both the DuoNeb and the budesonide. If she does use the 4 times a day at least a DuoNeb in twice a day the budesonide she does need to take any other inhalers except for rescue inhaler. the patient had a hard time with her breathing. She had called the office because she thought she would need prednisone. We did send prednisone she did initially okay but then she got worse again. She does she needed Solu- Medrol. However, she did in 1 go to the ER. We did not have any availability so she could not get shot in the office. She has been off the azithromycin. She takes that 3 times a week. The major issues she still smoking. Change oil smoking she is not ready to quit. Although she knows that she continues smoking she is going to continue getting worse. I am going to go ahead and send the Nicotrol inhaler to the pharmacy. She is going to start that up to see if this could help her decrease and hopefully stop her smoking habit. We did talk about the lung cancer screening program. The patient is not interested at this time. We also talked about biologic therapy. The patient has not been on Xolair. She did not want start. 10/23/2022 the patient is here for sick visit. She has had a hard time breathing off for couple months. Every time she goes on prednisone she does feel better but then when she weans off she always gets worse again. Unfortunately she continues to smoke cigarettes. Also fortunately she is reluctant to go to the ER at any point. She continues to work regularly. She had just completed a course of prednisone. Currently she is having labored breathing with significant audible wheezing. She did a treatment this morning. Though with her significant chest tightness and wheezing I did give her 2 DuoNeb treatments. Also Solu-Medrol 125 mg x 1. The patient is agreeable to staying on a small dose of prednisone at this time based on the fact that she has symptoms when she comes off. She also understands that she needs to quit smoking. I will have her get blood work including a venous gas and also a chest x-ray today prior to discharge. She is going to continue with current respiratory regimen and will be working on cutting down on the smoking. 02/11/2023 the patient is here for a pulmonary follow-up visit. The patient overall showing a little better. She continues to need a prednisone regularly. Although she is not taking it daily only as needed. Explained to her with her ongoing symptoms she is better off taking it once a day at least and then increasing it as needed. The patient does continue to smoke cigarettes. She has not ready to quit right now although she knows that is hurting her. She is looking for a job. She states that if she does get her job then she will work on quitting smoking. If she does decide to quit smoking she can go ahead and start Chantix. We did talk about the risks and side effects of the medication. She is aware of the depression and she would have to engage with family members to make sure that there where so they can monitor her closely. I do believe Chantix would be a good option for the patient. She continues use her respiratory therapy. She responded well to the azithromycin. She did have a chest x-ray back in September demonstrating no acute disease she has hyperinflation of the lungs. I did again recommend the lung cancer screening program but the patient rather not undergo any testing specially since she is not going to have anything done about it. 09/12/2023 the patient is here for sick visit. She has had worsening respiratory symptoms. Significant wheezing and chest congestion. Moderate to severe. Her respiratory therapy helps just for a short period of time. She did have some prednisone at home she did take it. Although she still having hard time. The patient did not want to go to the ER. She has a hard time even guru álvarez in full sentences. The patient has been using her oxygen with good effect. We did document significant wheezing and prolonged expiratory phase. She did receive Solu-Medrol and will continue on the prednisone taper. Will go ahead and treat her with Augmentin for lower respiratory infection. If the patient is not responding she knows to come back for chest x-ray. Otherwise she is going to continue with aggressive respiratory therapy. If the patient is no better she will call the office for an earlier assessment. 02/13/2024 the patient is here for a pulmonary follow-up visit. Recently she went to the ER with worsening respiratory symptoms. There she had an x-ray demonstrating left lower lobe opacity suggesting pneumonia. She was also felt to be volume overloaded. The patient has a history of cardiomyopathy and she is status post defibrillator. She was admitted to the hospital and was diuresed. She was also given antibiotics for presumptive pneumonia. She had an ech ocardiogram demonstrating an EF of 25% with 2+ diastolic dysfunction significant valvular disease. The patient was discharged in right now she is having issues with breathing. She complains of chest tightness and wheezing. She is on prednisone 10 mg every couple days. She is trying to minimize the prednisone because of her cushingoid appearance. Although she does have significant wheezing on exam and I did give her Solu-Medrol today. Although she can continue with the lower dose prednisone at this time. The patient also will follow-up with cardiology soon. They are going to work on volume status and aggressive diuresis. 04/26/2024 the patient is here for a pulmonary follow-up visit. The patient has been sick. She has been taking 20 mg of prednisone. Has a hard time exhaling and also expectorating. We did talk about bronchoscopy but the patient is not interested at this time. She also has stop some of the cardiac medications because over too expensive. She has significant rhonchi and wheezing today. She will receive additional Solu-Medrol will have to increase the prednisone. Unfortunately she continues to smoke cigarettes. She understands that this is going to continue making things worse for her. She needs to talk to her manager hotel regarding the lack of cardioprotective medications. She did increase her diuretics however. 08/12/2024 the patient is here for pulmonary follow-up visit. Overall the patient has been feeling a lot better. She did follow-up with Cardiology and she was placed on heart failure medications. She has felt significantly improvement after starting her cardiac therapy. She still has wheezing. She unfortunately continues to smoke cigarettes. She also unfortunately continues to require prednisone. At this point she is prednisone dependent. The patient is not interested in quitting smoking unfortunately and she is aware that it is causing damage to her lungs in further progressing her lung disease and her inability to breathe. Therefore, she will continue with the current respiratory therapy. She is not interested in participating in the lung cancer screening program at this time. 02/08/2025 the patient is here for pulmonary follow-up visit. Since we last spoke she actually had a fall trying to lift up a happy object and she is not sure if she lost consciousness. She did not want to go the hospital. She was adamant about that. The patient is having significant right-sided back and chest discomfort. Primarily when coughing severe in nature sharp. She is wondering if she fractures from ribs. She brings up the story of her sister who had a similar episode and she developed a hemothorax and she . She needs to have his x-ray she initially did not want to have him done but I did emphasizing she will have the x-rays done. In the meantime will did work on pain management patient was incentive spirometer for deep breathing exercises. Unfortunately continues to be on prednisone in the present and does result in osteopenia and we can bones and she is at risk of increasing fractures. Although she continues to smoke cigarettes and lungs continued to have significant wheezing chronic bronchitis and airway disease. [facility] Medical History (Updated 02/08/25 @ 21:50 by Willian Stern MD) Rib fracture Fall Pneumonia Asthma Glaucoma Tobacco dependence Asthma Asthma-COPD overlap syndrome BLAKE on CPAP COPD (chronic obstructive pulmonary disease) COPD (chronic obstructive pulmonary disease) Mixed simple and mucopurulent chronic bronchitis Family History Other Asthma Social History Household Members: Spouse Housing: House Do you presently have visiting nurse or other home services: No Patient Tobacco Use Status: Current everyday Tobacco user Tobacco use type: Cigarette Cigarette Packs Per Day: 1 Cigarettes Per Day: 3 Years Smoked: 50 years Advance Directives Date on File: 01/01/24 service: No Review of Systems Const Denies night sweats and Reports weight loss ENT Denies change in voice, Denies lip swelling, Denies mouth pain, Reports nasal congestion, Reports nasal discharge and Denies tongue swelling Card Reports chest pain and Reports dyspnea on exertion Resp Reports chest congestion, Reports cough, Reports pain with cough, Reports dyspnea on exertion and Reports wheezing GI Denies abdominal pain Musc Reports back pain and Reports arthralgias Neuro Denies Neuro-related abnormal movements Psych Denies no additional complaints Good/Lymph Denies easy bleeding and Denies lymphadenopathy Aller/Immun Denies lip swelling, Denies tongue swelling and Reports wheezing Physical Exam Vital Signs: Last Vital Signs Pulse 87 02/08/25 11:07 BP 100/58 L 02/08/25 11:07 Pulse Ox 96 02/08/25 11:07 Oxygen Delivery Method Room Air 02/08/25 11:07 BMI result Body Mass Index 39.4 Const General: alert and acute distress mild HEENT General nose exam: Abnormal external nose present and Nasal discharge present Eyes Pupils: Equal, round and reactive pupils present Neck Neck: Yes normal visual inspection, Yes full ROM and Yes no lymphadenopathy Chest Chest palpation & inspection: tenderness rib (right side thoracic area) Resp Effort & Inspection: prolonged expiratory phase Auscultation: wheezes scattered wheezes and diminished lung sounds Cardio Rate: regular rate Rhythm: regular rhythm Heart sounds: S1 normal heart sound present and S2 normal heart sound present GI Palpation (GI): Soft to palpation and nontender Auscultation: normal bowel sounds General: Yes no CVA tenderness Back/Spine/Pelvis Back: no CVA tenderness Skin General skin exam: rashes and/or lesions noted Neuro Cranial nerves: Yes Equal, round and reactive pupils present Assessment & Plan Assessment & Plan (1) COPD (chronic obstructive pulmonary disease): Code(s): J44.9 - Chronic obstructive pulmonary disease, unspecified Category: Medical Qualifiers: COPD type: COPD with acute exacerbation Qualified Code(s): J44.1 - Chronic obstructive pulmonary disease with (acute) exacerbation (2) Asthma-COPD overlap syndrome: Code(s): J44.9 - Chronic obstructive pulmonary disease, unspecified Category: Medical (3) Tobacco dependence: Code(s): F17.200 - Nicotine dependence, unspecified, uncomplicated Category: Medical (4) Glaucoma: Code(s): H40.9 - Unspecified glaucoma Category: Medical Qualifiers: Glaucoma type: unspecified Laterality: unspecified laterality Qualified Code(s): H40.9 - Unspecified glaucoma (5) Fall: Code(s): W19.XXXA - Unspecified fall, initial encounter Category: Medical Qualifiers: Encounter type: initial encounter Qualified Code(s): W19.XXXA - Unspecified fall, initial encounter (6) Rib fracture: Code(s): S22.39XA - Fracture of one rib, unspecified side, initial encounter for closed fracture Category: Medical Qualifiers: Encounter type: initial encounter Rib fracture type: single rib Fracture type: closed Laterality: right Qualified Code(s): S22.31XA - Fracture of one rib, right side, initial encounter for closed fracture Plan Pain management ISS continue budesonide twice a day Duoneb QID, monitor for visual changes, none reported Continue oxygen supplementation with activity and sleep consider Chantix, not interested in quiting or cutting down at this time Consider LDCT screening, not interested at this time reflux diet/PPI Follow-up in 3-4 months Orders: Orders XR ribs RT min 3V w CXR1V Today J18.9 - Pneumonia, unspecified organism, W19.XXXA - Unspecified fall, initial encounter Medications: New oxycodone Partial Fill upon patient request. 5 mg PO Q8H 10 days PRN 30 tabs 0RF pain Refilled prednisone 20 mg (2 x 10 mg) PO DAILY 60 tabs 3RF 30 days Coding Level of Care Code Est Pt Level 4 (01882) Complex EM visit Add On G2211 Diagnoses Chronic obstructive pulmonary disease with acute exacerbation J44.1 COPD type: COPD with acute exacerbation Asthma-COPD overlap syndrome J44.9 Tobacco dependence F17.200 Glaucoma, unspecified glaucoma type, unspecified laterality H40.9 Glaucoma type: unspecified Laterality: unspecified laterality Fall, initial encounter W19.XXXA Encounter type: initial encounter Closed fracture of one rib of right side, initial encounter S22.31XA Encounter type: initial encounter Rib fracture type: single rib Fracture type: closed Laterality: right Time Spent (min) 17
[2025-02-08 11:07] VITALS: BP 100/58; PULSE 87; O2SAT 96; BMI 39.4
--- OUTSIDE RECORDS SUMMARY | 2025-02-08 12:27 | XMS_ITS | Clinical Summary ---
Author Organization [address] [facility] Address [address] [place] [address] Phone Care Team Providers Care Schedule Supervisor Name Role Phone Araseli Calvo MD Primary Care Provider [phone] Encounters Date Type Department Care Team Description 12/01/2024 1:00 PM EDT Ancillary Procedure [facility] Cardiology [facility] [address] [facility] [address] [place] [phone] Presence of prosthetic heart valve 12/01/2024 Telephone [facility] [address] [place] [phone] Araseli Calvo MD Medical Records 11/24/2024 Telephone [place] [address] [place] [address] Ar Nicholas MD from Last 3 Months Surgical History Surgery Date Site/Laterality Comments OTHER SURGICAL HISTORY Right PROCEDURE: MS ARTHRP ACETBLR/PROX FEM PROSTC AGRFT/ALGRFT; COMMENT: Dr Serrano TOTAL KNEE ARTHROPLASTY Bilateral PROCEDURE: MS ARTHRP KNE CONDYLE&PLATU MEDIAL&LAT COMPARTMENTS; COMMENT: Dr Serrano Medical History Medical History Date Comments Diabetes mellitus with no co mplication (CMS/HCC V24, CMS/HCC V28) DX:Diabetes mellitus with n o complication (HCC) Asthma in adult DX:Asthma in binh lt Social History Tobacco Use Types Packs/Day Years Used Date Smoking Tobacco: Never Smokeless Tobacco: Never Alcohol Use Standard Drinks/Week Comments Not Asked 0 (1 standard drink = 0.6 oz pur e alcohol) Comments Unknown Sex and Gender Information Value Date Recorded Sex Assigned at Not on file Legal Sex Female 2:02 AM EST Gender Identity Not on file Sexual Orientation Not on file Obstetrics History Last Filed Vital Signs Vital Sign Reading Time Taken Comments Blood Pressure 112/62 12/01/2024 1:13 PM EDT Pulse - - Temperature - - Respiratory Rate - - Oxygen Saturation - - Inhaled Oxygen Concentration - - Weight 93.9 kg (207 lb) 12/01/2024 1:13 PM EDT Height 154.9 cm (5' 1 ) 12/01/2024 1:13 PM EDT Body Mass Index 39.11 12/01/2024 1:13 PM EDT Plan of Treatment Health Maintenance Due Date Last Done Comments Breast Cancer Screening 1955 DTaP,Tdap,and Td Vaccines (1 - Tdap) 1973 Pneumococcal Vaccine: 50+ Years (1 of 2 - PCV) 1973 Zoster Vaccines (1 of 2) 02/03/2004 RSV Immunization Adult Patients (1 - Risk 60-74 years 1-dose series) 2014 Cholesterol Screening (Lipid Panel) 06/30/2022 Colorectal Cancer Screening: Colonoscopy 06/30/2022 Depression Screening 06/30/2022 Falls Risk Assessment 06/30/2022 Hepatitis C Screening 06/30/2022 Medicare Annual Wellness Visit 06/30/2022 Osteoporosis Screening (Bone Density Screening) 06/30/2022 Social Influencers of Health Screening 06/30/2022 COVID-19 Vaccine ( season) 2024 01/09/2021, 12/12/2020 Hypertension/CHF/CAD Annual BMP Blood Test 12/01/2024 Influenza Vaccine (#1) 2025 2, 05/08/2021, 04/26/2020, Additional history exists HIB Vaccines Aged Out No longer eligi ble based on patient's age to complete this topic HPV Vaccines Aged Out No longer eligi ble based on patient's age to complete this topic Hepatitis A Vaccines Aged Out No long er eligible based on patient's age to complete this topic Hepatitis B Vaccines Aged Out No long er eligible based on patient's age to complete this topic IPV Vaccines Aged Out No longer eligi ble based on patient's age to complete this topic MMR Vaccines Aged Out No longer eligi ble based on patient's age to complete this topic Meningococcal ACWY Vaccine Aged Out N o longer eligible based on patient's age to complete this topic Meningococcal B Vaccine Aged Out No l onger eligible based on patient's age to complete this topic RSV Immunization Patients Under 20 months Aged Out No longer eligible based on patient's age to complete this topic Varicella Vaccines Aged Out No longer eligible based on patient's age to complete this topic Procedures Procedure Name Priority Date/Time Associated Diagnosis Comments TRANSTHORACIC ECHOCARDIOGRAM (TTE) COMPLETE W/ CONTRAST STAT 12/01/2024 1:13 PM EDT Presence of prosthetic heart valve from Last 3 Months Results * (ABNORMAL) TRANSTHORACIC ECHOCARDIOGRAM (TTE) COMPLETE W/ CONTRAST (12/01/2024 1:13 PM EDT) LV EDV (A2C) 197 mL CV PACS LV EDV (A4C) 186 mL CV PACS LV Diastolic Volume (BP) 191(A) 46 - 106 mL CV PACS LV ESV (A2C) 132 mL CV PACS LV ESV (A4C) 125 mL CV PACS LV Systolic Volume (BP) 129(A) 14 - 42 mL CV PACS IVSD 0.8 0.6 - 0.9 cm CV PACS LVIDD 6.4(A) 3.8 - 5.2 cm CV PACS LVIDS 5.5(A) 2.2 - 3.5 cm CV PACS LVOT Mean Grad 4 mmHg CV PACS LVOT Peak VTI 26.9 cm CV PACS LVOT Mean Goyo 1.0 m/s CV PACS LVOT Peak Goyo 1.4 m/s CV PACS LVOT Peak Gradient 8 mmHg CV PACS LVPWD 1.1(A) 0.6 - 0.9 cm CV PACS Ejection Fraction (A2C) 33 % CV PACS Ejection Fraction (A4C) 32 % CV PACS Ejection Fraction (BP) 33 % CV PACS Left [facility] [place] 6.0 cm CV PACS LA Area Sys (A4C) 22 cm2 CV PACS RA Area 17.1 cm2 CV PACS RA 2D Volume 46 mL CV PACS AV Mean Gradient 17 mmHg CV PACS Ao VTI 55.5 cm CV PACS AV Peak Goyo 2.8 m/s CV PACS AV Peak Gradient 32 mmHg CV PACS Ascending Aorta 2.7 cm CV PACS MV Mean Gradient 9 mmHg CV PACS MV VTI 34.3 cm CV PACS Mitral Valve Max Velocity 2.2 m/s CV PACS MV Peak Gradient 19 mmHg CV PACS RV Diastolic Basal Dimension 3.4 2.5 - 4.1 cm CV PACS RV S' 14 cm/s CV PACS TAPSE 22 mm CV PACS TR Peak Velocity 2.73 m/s CV PACS TR Peak Gradient 30 mmHg CV PACS LV ESV Index (A4C) 65 mL/m2 CV PACS LV EDV Index (A4C) 97 mL/m2 CV PACS Relative Wall Thickness ratio 0.34 CV PACS LVOT:AV VTI Index 0.48 CV PACS FS 14 % CV PACS LV Mass 2D 258 g CV PACS Ascending Aorta Index 1.41 cm/m2 CV PACS MV VTI:LVOT VTI ratio 1.3 CV PACS RA 2D Volume Index 24 mL/m2 CV PACS LVIDD Index 3.33 cm/m2 CV PACS LVIDS Index 2.86 cm/m2 CV PACS AV Velocity Ratio 0.50 CV PACS LV Systolic Volume Index (BP) 67 mL/m2 CV PACS LV Diastolic Volume Index (BP) 99 mL/m2 CV PACS LV Mass Index 2D 134 g/m2 CV PACS LV EDV Index (A2C) 103 mL/m2 CV PACS LV ESV Index (A2C) 69 mL/m2 CV PACS BSA 2.01 m2 CV PACS Right Ventricular Peak Systolic Pressure 33 mmHg CV PACS Est. RA Pressure 3 mmHg CV PACS AV Acceleration Time 81 ms CV PACS Anatomical Region Laterality Modality Ultrasound Narrative 12/10/2024 4:25 PM EDT Technically difficult study Left Ventricle: Left ventricle cavity is severely dilated. Systolic function is moderately decreased. The quantitative EF by 2D Mills biplane is 33%. There is evidence of global hypokinesis of the left ventricle with akinesis of the apical septal wall/apical inferior wall/apical anterior wall and aneurysmal apex/apical lateral wall. Right ventricle cavity is normal. Right ventricular systolic function is normal. Aortic Valve: The valve has been surgically replaced. A 29 mm TAVR Evolut FX+ bioprosthetic valve. Prosthetic valve appears well-seated and appears to be functioning normally with a gradient within the expected range. No evidence of bioprosthetic aortic valve stenosis. No evidence of significant bioprosthetic aortic valve insufficiency. When compared to the report of the echocardiogram done at [facility] on 11/19/2024: No significant change in the bioprosthetic aortic valve gradients. Mitral Valve: There is mild regurgitation. There is mild - moderate stenosis. Tricuspid Valve: There is mild regurgitation. The right ventricular systolic pressure is normal. Estimated RA pressure is 3 mmHg. The RVSP is estimated at 33 mmHg. When compared to the report of the echocardiogram done at [facility] on 11/19/2024: No significant change in the bioprosthetic aortic valve gradients. Left Ventricle Left ventricle cavity is severely dilated. Wall thickness is normal. Systolic function is moderately decreased. The quantitative EF by 2D Mills biplane is 33%. Unable to assess diastolic function due to significant mitral annular calcification. Right Ventricle Right ventricle cavity appears normal. Systolic function is normal. A pacer wire is present in the right ventricle. Left Atrium Left atrium cavity size is normal. Right Atrium Right atrium cavity is normal. A pacer wire is present in the right atrium. There is a prominent Eustachian valve. IVC/SVC Inferior vena cava structure is normal. RA pressures is estimated to be 3 mmHg (IVC diameter <21 mm and decreases >50% during inspiration). Mitral Valve The leaflets are mildly thickened. There is moderate annular calcification. There is calcification of the anterior leaflet subvalvular apparatus. There is calcification of the posterior leaflet subvalvular apparatus. There is mild regurgitation. There is mild - moderate stenosis. MV mean gradient is 9 mmHg. Tricuspid Valve The leaflets exhibit normal excursion. There is mild regurgitation. There is no evidence of tricuspid valve stenosis. The right ventricular systolic pressure is normal. Estimated RA pressure is 3 mmHg. The RVSP is estimated at 33 mmHg. Aortic Valve The valve has been surgically replaced. There is a 29 mm TAVR Evolut FX+ bioprosthetic valve. The prosthetic valve appears well-seated and appears to be functioning normally. There is no regurgitation. The gradient recorded across the prosthetic aortic valve is within the expected range. The aortic valve peak velocity is 2.8 m/s. The velocity ratio is 0.50. The mean gradient is 17 mmHg. The acceleration time is 81 ms. Pulmonic Valve Visualized portions of the pulmonic valve appear normal. There is no regurgitation or stenosis. Ascending Aorta The aorta appears normal in size. Pericardium Pericardium appears normal. There is no pericardial effusion. Study Details Overall the study quality was technically difficult. Cardiac history: prosthetic valve. Definity contrast was given to enhance imaging. Wall Scoring Baseline Score Index: 2.53 The following segments are aneurysmal: apical lateral and apex. The following segments are akinetic: apical anterior, apical septal and apical inferior. The following segments are hypokinetic: basal anterior, basal anteroseptal, basal inferoseptal, basal inferior, basal inferolateral, basal anterolateral, mid anterior, mid anteroseptal, mid inferoseptal, mid inferior, mid inferolateral and mid anterolateral. us Ar Nicholas MD CV ECHO PROCEDURES Final Result from Last 3 Months Insurance [facility] MEDIC[facility] Care Teams Schedule Supervisor Relationship Specialty Start Date End Date Araseli Calvo MD [address] [place] [address] PCP - General Internal Medicine 10/24/15
== END 2025-02-08 11:40 | disposition home or self-care (01) ==
LOC: HO.HPS 11:04
PROVIDERS: PCP Internal Medicine; Visit Provider Hospitalist
DX: J44.1 Chronic obstructive pulmonary disease with (acute) exacerbation (principal); J44.9 Chronic obstructive pulmonary disease, unspecified; F17.200 Nicotine dependence, unspecified, uncomplicated; H40.9 Unspecified glaucoma; W19.XXXA Unspecified fall, initial encounter; S22.31XA Fracture of one rib, right side, initial encounter for closed fracture
CPT/HCPCS: 99214; G2211

== ENCOUNTER 2025-02-08 11:03 | Outpatient (REF) | payer MEDICARE, SELFPAY ==
--- NOTE | ~2025-02-08 | XR_ITS ---
EXAMINATION: XR RIBS 3 VIEWS MINIMUM WITH CHEST RIGHT HISTORY: J18.9 - Pneumonia, unspecified organism COMPARISON: Comparison is made with the prior examination dated 01/01/2024. FINDINGS: A single PA view of the chest and 3 views of the right ribs are submitted. A left subclavian unipolar pacemaker is unchanged in position. The lungs are expanded and clear. There is no pleural effusion, pneumothorax, or pulmonary vascular congestion. The heart is normal in size. The patient is status post aortic valve replacement. There is a minimally displaced fracture of the right 6th rib. XR/XR ribs RT min 3V w CXR1V IMPRESSION: Minimally displaced fracture of the right 6th rib. Electronically signed by: Chuck Spears MD 02/08/2025 12:12 PM EDT
== END 2025-02-08 11:04 | disposition home or self-care (01) ==
LOC: HO.XRAY 11:03
PROVIDERS: PCP Internal Medicine; Visit Provider Hospitalist
DX: S22.31XA Fracture of one rib, right side, initial encounter for closed fracture (principal); J44.1 Chronic obstructive pulmonary disease with (acute) exacerbation; J44.89 Other specified chronic obstructive pulmonary disease; H40.9 Unspecified glaucoma; M85.80 Other specified disorders of bone density and structure, unspecified site; J18.9 Pneumonia, unspecified organism; F17.210 Nicotine dependence, cigarettes, uncomplicated; W19.XXXA Unspecified fall, initial encounter; Z79.51 Long term (current) use of inhaled steroids; Z79.2 Long term (current) use of antibiotics; Z79.891 Long term (current) use of opiate analgesic; Z79.1 Long term (current) use of non-steroidal anti-inflammatories (NSAID); Z79.52 Long term (current) use of systemic steroids; Z99.81 Dependence on supplemental oxygen
CPT/HCPCS: 71101; 99212

== ENCOUNTER → 2025-02-08 11:45 | Outpatient (BNV) | payer MEDICARE, SELFPAY | PROVIDERS: PCP Internal Medicine; Visit Provider Radiology Diagnostic Radiology | DX: S22.31XA Fracture of one rib, right side, initial encounter for closed fracture (principal) | CPT/HCPCS: 71101 ==

== ENCOUNTER 2025-06-14 09:39 | Outpatient (AMB) | payer MEDICARE, SELFPAY ==
--- NOTE | 2025-06-14 09:45 | MHC.OFFVIS ---
Vital Signs 06/14/25 09:47 Height 5 ft Weight 201 lb 11.567 oz BMI 39.4 BP 96/60 Blood Pressure Location Lt brachial Position Sitting Pulse 92 Pulse Source Pulse Oximeter Pulse Oximetry (%) 96 Oxygen Delivery Method Room Air Intake Visit Reasons: COPD Acetaldehyde Converter Operator Required: No Accompanied by: Self / Same As Patient Allergies ciprofloxacin Allergy (Severe, Verified 06/14/25 09:50) rash HPI Comments Details: The patient is a 70-year-old woman known severe asthma, tobacco dependency and pulmonary nodules. She continues to smoke cigarettes. She is not ready to quit. She continues on the Symbicort and Spiriva. Recently she was admitted to [facility] with the kidney stones and also a complicated urinary tract infection. She has been taking 2 antibiotics. She has also been taking analgesics for the significant pain. She did have a stent placed. Now she needs additional therapies for larger stone removal. Patient needs pulmonary clearance. Overall her respiratory status is improved. She has been using her inhalers regularly. She has not had any pulmonary function studies recently. At this point due to her pain and discomfort would be a good time to do them. She is walking without any significant shortness of breath which is reassuring. We did review her chest x-ray from [facility] done 06/03/2019 demonstrating a question opacity in the right imelda thorax. She did have a CT scan of the chest back in October 2018 demonstrating stable pulmonary nodules.Apparently after had seen and she developed worsening neck discomfort and she called 911. She was found to have an at heart attack, she was admitted to [facility]. She underwent a PCI with stent placed to the LAD. However, after that she had worsening respiratory symptoms. Significant wheezing. Not in any improvement with her respiratory medicines at home. She went to cardiac rehab this morning even though she was short of breath. She was told that it may be from the metoprolol. She is going to call her manufacturing process technician to see if we can come off it or decrease the dose. 10/03/2021 the patient is here for a pulmonary follow-up visit. Her respiratory status has significantly gotten worse. During the last visit she explained that she was diagnosed with glaucoma and went to take her off her anticholinergic in respiratory therapy. However, she did get a clarification that was not glaucoma and was cataracts. Therefore she can go back on anticholinergic therapy. She does have increased wheezing and she feels that not being on that medication made her symptoms worse. The patient was denied on Dupixent and therefore will continue her on prednisone for now. The patient does have significant wheezing today and she will receive a dose of Solu-Medrol. She denies any sick contacts. In view of her asthma phenotype will go ahead and do blood work to assess her eosinophils and her IgE levels as well as her allergies. I am hopeful that she can start biologic therapies in order to decrease her steroid needs. 11/20/2021 the patient is here for pulmonary follow-up visit. She is doing a lot better now on Trelegy. The inhaler therapy has been affecting beneficial. She has not required prednisone since the last time. She continues to have shortness of breath with activity. Moderate severity. Does get very winded at times. She also has significant allergies. She takes Benadryl every night. We did do blood work including allergy testing and she has significant allergies to molds and a significantly elevated IgE level will refer to the ostium. The patient does have an asthma phenotype and she will benefit from biologic therapy based on her frequent does of prednisone on maximum therapy. She will be a good candidate for Xolair. However, the patient is resistant on starting a biologic therapies at this time. She is going to continue on current therapy. We also talked about her smoking. She understands smoking slowly making it worse. She is not interested in using any alternative medications at this time. But she will consider cutting down at this time. 09/05/2022 the patient is here for a pulmonary follow-up visit. She has had a hard time with her breathing. She can no longer use the Trelegy because of the cost. Her primary care doctor did prescribe Symbicort. Although still very expensive for her. She has her nebulizer therapy both the DuoNeb and the budesonide. If she does use the 4 times a day at least a DuoNeb in twice a day the budesonide she does need to take any other inhalers except for rescue inhaler. the patient had a hard time with her breathing. She had called the office because she thought she would need prednisone. We did send prednisone she did initially okay but then she got worse again. She does she needed Solu-Medrol. However, she did in 1 go to the ER. We did not have any availability so she could not get shot in the office. She has been off the azithromycin. She takes that 3 times a week. The major issues she still smoking. Change oil smoking she is not ready to quit. Although she knows that she continues smoking she is going to continue getting worse. I am going to go ahead and send the Nicotrol inhaler to the pharmacy. She is going to start that up to see if this could help her decrease and hopefully stop her smoking habit. We did talk about the lung cancer screening program. The patient is not interested at this time. We also talked about biologic therapy. The patient has not been on Xolair. She did not want start. 10/23/2022 the patient is here for sick visit. She has had a hard time breathing off for couple months. Every time she goes on prednisone she does feel better but then when she weans off she always gets worse again. Unfortunately she continues to smoke cigarettes. Also fortunately she is reluctant to go to the ER at any point. She continues to work regularly. She had just completed a course of prednisone. Currently she is having labored breathing with significant audible wheezing. She did a treatment this morning. Though with her significant chest tightness and wheezing I did give her 2 DuoNeb treatments. Also Solu-Medrol 125 mg x 1. The patient is agreeable to staying on a small dose of prednisone at this time based on the fact that she has symptoms when she comes off. She also understands that she needs to quit smoking. I will have her get blood work including a venous gas and also a chest x-ray today prior to discharge. She is going to continue with current respiratory regimen and will be working on cutting down on the smoking. 02/11/2023 the patient is here for a pulmonary follow-up visit. The patient overall showing a little better. She continues to need a prednisone regularly. Although she is not taking it daily only as needed. Explained to her with her ongoing symptoms she is better off taking it once a day at least and then increasing it as needed. The patient does continue to smoke cigarettes. She has not ready to quit right now although she knows that is hurting her. She is looking for a job. She states that if she does get her job then she will work on quitting smoking. If she does decide to quit smoking she can go ahead and start Chantix. We did talk about the risks and side effects of the medication. She is aware of the depression and she would have to engage with family members to make sure that there where so they can monitor her closely. I do believe Chantix would be a good option for the patient. She continues use her respiratory therapy. She responded well to the azithromycin. She did have a chest x-ray back in September demonstrating no acute disease she has hyperinflation of the lungs. I did again recommend the lung cancer screening program but the patient rather not undergo any testing specially since she is not going to have anything done about it. 09/12/2023 the patient is here for sick visit. She has had worsening respiratory symptoms. Significant wheezing and chest congestion. Moderate to severe. Her respiratory therapy helps just for a short period of time. She did have some prednisone at home she did take it. Although she still having hard time. The patient did not want to go to the ER. She has a hard time even speaking in full sentences. The patient has been using her oxygen with good effect. We did document significant wheezing and prolonged expiratory phase. She did receive Solu-Medrol and will continue on the prednisone taper. Will go ahead and treat her with Augmentin for lower respiratory infection. If the patient is not responding she knows to come back for chest x-ray. Otherwise she is going to continue with aggressive respiratory therapy. If the patient is no better she will call the office for an earlier assessment. 02/13/2024 the patient is here for a pulmonary follow-up visit. Recently she went to the ER with worsening respiratory symptoms. There she had an x-ray demonstrating left lower lobe opacity suggesting pneumonia. She was also felt to be volume overloaded. The patient has a history of cardiomyopathy and she is status post defibrillator. She was admitted to the hospital and was diuresed. She was also given antibiotics for presumptive pneumonia. She had an echocardiogram demonstrating an EF of 25% with 2+ diastolic dysfunction significant valvular disease. The patient was discharged in right now she is having issues with breathing. She complains of chest tightness and wheezing. She is on prednisone 10 mg every couple days. She is trying to minimize the prednisone because of her cushingoid appearance. Although she does have significant wheezing on exam and I did give her Solu-Medrol today. Although she can continue with the lower dose prednisone at this time. The patient also will follow-up with cardiology soon. They are going to work on volume status and aggressive diuresis. 04/26/2024 the patient is here for a pulmonary follow-up visit. The patient has been sick. She has been taking 20 mg of prednisone. Has a hard time exhaling and also expectorating. We did talk about bronchoscopy but the patient is not interested at this time. She also has stop some of the cardiac medications because over too expensive. She has significant rhonchi and wheezing today. She will receive additional Solu-Medrol will have to increase the prednisone. Unfortunately she continues to smoke cigarettes. She understands that this is going to continue making things worse for her. She needs to talk to her manufacturing process technician regarding the lack of cardioprotective medications. She did increase her diuretics however. 08/12/2024 the patient is here for pulmonary follow-up visit. Overall the patient has been feeling a lot better. She did follow-up with Cardiology and she was placed on heart failure medications. She has felt significantly improvement after starting her cardiac therapy. She still has wheezing. She unfortunately continues to smoke cigarettes. She also unfortunately continues to require prednisone. At this point she is prednisone dependent. The patient is not interested in quitting smoking unfortunately and she is aware that it is causing damage to her lungs in further progressing her lung disease and her inability to breathe. Therefore, she will continue with the current respiratory therapy. She is not interested in participating in the lung cancer screening program at this time. 02/08/2025 the patient is here for pulmonary follow-up visit. Since we last spoke she actually had a fall trying to lift up a happy object and she is not sure if she lost consciousness. She did not want to go the hospital. She was adamant about that. The patient is having significant right-sided back and chest discomfort. Primarily when coughing severe in nature sharp. She is wondering if she fractures from ribs. She brings up the story of her sister who had a similar episode and she developed a hemothorax and she . She needs to have his x-ray she initially did not want to have him done but I did emphasizing she will have the x-rays done. In the meantime will did work on pain management patient was incentive spirometer for deep breathing exercises. Unfortunately continues to be on prednisone in the present and does result in osteopenia and we can bones and she is at risk of increasing fractures. Although she continues to smoke cigarettes and lungs continued to have significant wheezing chronic bronchitis and airway disease. 06/14/2025 the patient is here for pulmonary follow-up visit. The patient continues to struggle with the breathing. Unfortunately she also continues with her smoking. Still smoking significantly. Has significant wheezing chest tightness. She has been having hard time. The patient has been using her respiratory therapy and also her nebulizer. She did get some samples of Spiriva and she has found them very helpful. But the very expensive for her to be able to cover as far as her copays. Therefore she does better with nebulizer therapy. Will recent all her nebulizer solution to the pharmacy including the budesonide in the DuoNeb. We also talked about Ohtuvayre but will be a lot of nebulizer therapies for her to use. In the meantime the patient has been taking the azithromycin 3 times a week. I do believe that she will benefit from a small dose of prednisone. I will send her 10 mg that she can use daily. In the meantime she will receive Solu-Medrol today to get her feeling better and then she can continue her therapy. She understands that if she continues smoking her condition is only going to continue to get worse. [facility] Medical History (Updated 02/08/25 @ 21:50 by Willian Stern MD) Rib fracture Fall Pneumonia Asthma Glaucoma Tobacco dependence Asthma Asthma-COPD overlap syndrome BLAKE on CPAP COPD (chronic obstructive pulmonary disease) COPD (chronic obstructive pulmonary disease) Mixed simple and mucopurulent chronic bronchitis Family History Other Asthma Social History Household Members: Spouse Housing: House Do you presently have visiting nurse or other home services: No Patient Tobacco Use Status: Current everyday Tobacco user Tobacco use type: Cigarette Cigarette Packs Per Day: 1 Cigarettes Per Day: 3 Years Smoked: 50 years Advance Directives Date on File: 01/01/24 service: No Review of Systems Const Denies night sweats and Reports weight loss ENT Denies change in voice, Denies lip swelling, Denies mouth pain, Reports nasal congestion, Reports nasal discharge and Denies tongue swelling Card Reports chest pain and Reports dyspnea on exertion Resp Reports chest congestion, Reports cough, Reports pain with cough, Reports dyspnea on exertion and Reports wheezing GI Denies abdominal pain Musc Reports back pain and Reports arthralgias Neuro Denies Neuro-related abnormal movements Psych Denies no additional complaints Good/Lymph Denies easy bleeding and Denies lymphadenopathy Aller/Immun Denies lip swelling, Denies tongue swelling and Reports wheezing Physical Exam Vital Signs: Last Vital Signs Pulse 92 06/14/25 09:47 BP 96/60 06/14/25 09:47 Pulse Ox 96 06/14/25 09:47 Oxygen Delivery Method Room Air 06/14/25 09:47 BMI result Body Mass Index 39.4 Const General: alert and acute distress mild HEENT General nose exam: Abnormal external nose present and Nasal discharge present Eyes Pupils: Equal, round and reactive pupils present Neck Neck: Yes normal visual inspection, Yes full ROM and Yes no lymphadenopathy Chest Chest palpation & inspection: normal inspection of the chest Resp Effort & Inspection: normal respiratory effort and prolonged expiratory phase Auscultation: rhonchi, wheezes scattered wheezes and diminished lung sounds Cardio Rate: regular rate Rhythm: regular rhythm Heart sounds: S1 normal heart sound present and S2 normal heart sound present GI Palpation (GI): Soft to palpation and nontender Auscultation: normal bowel sounds General: Yes no CVA tenderness Back/Spine/Pelvis Back: no CVA tenderness Skin General skin exam: rashes and/or lesions noted Neuro Cranial nerves: Yes Equal, round and reactive pupils present Office Meds methylprednisolone sod suc(PF) 125 mg/2 mL solution for injection Performing Provider: Willian Stern MD [place] [facility] Administered by: Nakia Calvo LPN on 06/14/25 10:34 Dose Route Admin Location Dispensed Lot Number Expiration Date NDC Air Technician 125 mg IM L buttock 1 ea [id number] 08/27/27 1716-5831-82 [employer] Total Dispensed Waste 1 ea 0 % Assessment & Plan Assessment & Plan (1) COPD (chronic obstructive pulmonary disease): Code(s): J44.9 - Chronic obstructive pulmonary disease, unspecified Category: Medical Qualifiers: COPD type: COPD with acute exacerbation Qualified Code(s): J44.1 - Chronic obstructive pulmonary disease with (acute) exacerbation (2) Asthma-COPD overlap syndrome: Code(s): J44.9 - Chronic obstructive pulmonary disease, unspecified Category: Medical (3) Tobacco dependence: Code(s): F17.200 - Nicotine dependence, unspecified, uncomplicated Category: Medical (4) Fall: Code(s): W19.XXXA - Unspecified fall, initial encounter Category: Medical Qualifiers: Encounter type: initial encounter Qualified Code(s): W19.XXXA - Unspecified fall, initial encounter Plan continue budesonide twice a day Duoneb QID, monitor for visual changes, none reported Continue oxygen supplementation with activity and sleep consider Chantix, not interested in quiting or cutting down at this time Consider LDCT screening, not interested at this time reflux diet/PPI solumedrol, start Prednisone 10mg daily Azithromycin MWF Follow-up in 2-3 months Orders: Orders AMB Methylprednisolone Sod Succ Injection Today J44.1 - Chronic obstructive pulmonary disease with (acute) exacerbation Medications: New budesonide 0.5 mg (2 mL) inhalation BID 120 mL 11RF 30 days J44.9 - Chronic obstructive pulmonary disease, unspecified Changed From prednisone 20 mg (2 x 10 mg) PO DAILY 30 days 60 tabs 3RF To prednisone 10 mg PO DAILY 30 tabs 6RF 30 days Coding Level of Care Code Est Pt Level 4 (38334) Complex EM visit Add On G2211 Diagnoses Chronic obstructive pulmonary disease with acute exacerbation J44.1 COPD type: COPD with acute exacerbation Asthma-COPD overlap syndrome J44.9 Tobacco dependence F17.200 Fall, initial encounter W19.XXXA Encounter type: initial encounter Time Spent (min) 18
[2025-06-14 09:47] VITALS: BP 96/60; PULSE 92; O2SAT 96; BMI 39.4
== END 2025-06-14 10:33 | disposition home or self-care (01) ==
LOC: HO.HPS 09:39
PROVIDERS: PCP Internal Medicine; Visit Provider Hospitalist
DX: J44.1 Chronic obstructive pulmonary disease with (acute) exacerbation (principal); J44.9 Chronic obstructive pulmonary disease, unspecified; F17.200 Nicotine dependence, unspecified, uncomplicated; W19.XXXA Unspecified fall, initial encounter
CPT/HCPCS: 99214; G2211

== ENCOUNTER → 2025-06-14 09:39 | Outpatient (BNVA) | payer MEDICARE, SELFPAY | PROVIDERS: PCP Internal Medicine; Visit Provider Hospitalist | DX: J44.1 Chronic obstructive pulmonary disease with (acute) exacerbation (principal); J44.89 Other specified chronic obstructive pulmonary disease; R91.8 Other nonspecific abnormal finding of lung field; F17.210 Nicotine dependence, cigarettes, uncomplicated; Z91.81 History of falling; Z98.61 Coronary angioplasty status | CPT/HCPCS: 96372; 99212; J2919 ==